=== PATIENT | male | born 1955 | race Caucasian/White ===

== ENCOUNTER → 2016-08-08 | Outpatient (CLI) | payer MEDICARE, MEDICAID ==
[~2016-08-08] MED LIST: /ESOM40CA PO; ACET500C OR; AMLO5TAB2 PO; COLA100C2 PO; DEBR6.5S4 AU; DEPA250C OR; DETR4CAP OR; DIVA500T9 PO; DULC10SU2 PR; DULCOLAX PR; ESOM1CAP5 PO; FLEEENE4 PR; HYDR10TAB PO; IMIP25TA2 PO; INVE9TAB OR; LISI40TAB PO; LUNE3TAB48 PO; METO25TA74 PO; METO25TAB PO; MILKSUS PO; MIRA33504 PO; MIRALEX PO; NIZO2SHA EX; NIZORAL TOP; PAXI30TA OR; ROZE8TAB9 PO; SAPH1SUB12 SL; SENO8.6T10 PO; TRAN1.5D2 TOP; [UNRECOGNIZED DRUG - OTHER] SL
[2016-08-08 14:05] LABS: MEAN CORPUSCULAR HEMOGLOBIN 32.6 pg (27.0-33.0); MEAN CORPUSCULAR HGB CONC 33.5 g/dl (32.0-36.5); MEAN CORPUSCULAR VOLUME 97.4 fl (80.0-96.0); RED CELL DISTRIBUTION WIDTH 12.7 % (11.5-14.5); WHITE BLOOD COUNT 7.1 K/mm3 (4.0-10.0)
[2016-08-08 14:33] LABS: ALBUMIN 3.2 GM/DL (3.2-5.2); ALBUMIN/GLOBULIN RATIO 0.94 (1.00-1.93); ALKALINE PHOSPHATASE 57 U/L (45-117); ALT/SGPT 16 U/L (12-78); ANION GAP 4 MEQ/L (8-16); AST/SGOT 17 U/L (15-37); BILIRUBIN,TOTAL 0.4 MG/DL (0.2-1.0); BLOOD UREA NITROGEN 18 MG/DL (7-18); CALCIUM LEVEL 8.6 MG/DL (8.8-10.2); CARBON DIOXIDE LEVEL 34 MEQ/L (21-32); CHLORIDE LEVEL 97 MEQ/L (98-107); CHOLESTEROL LEVEL 167 MG/DL (<200); CREATININE FOR GFR 0.88 MG/DL (0.70-1.30); GLOMERULAR FILTRATION RATE > 60.0 (>49); GLUCOSE, FASTING 75 MG/DL (80-110); POTASSIUM SERUM 4.9 MEQ/L (3.5-5.1); SODIUM LEVEL 135 MEQ/L (136-145); TOTAL PROTEIN 6.6 GM/DL (6.4-8.2); TRIGLYCERIDES LEVEL 89 MG/DL (<150)
== END ==
LOC: M WUC 08:30
PROVIDERS: ATTEND Physician Assistant
DX: F25.9 Schizoaffective disorder, unspecified (principal); Z79.899 Other long term (current) drug therapy

== ENCOUNTER → 2016-08-29 | Outpatient (CLI) | payer MEDICARE, MEDICAID ==
[~2016-08-29] VITALS: Ht 188 cm; Wt 81.6 kg
[~2016-08-29] MED LIST changes: -IMIP25TA2 PO; +IMIP25TA3 PO; +LIDOCAINE 2% INJ 100 MG/5 ML SDV (FOR ANES.) As Ordered ONE; +LUNE3TAB36 PO; -LUNE3TAB48 PO; +METO1TAB32 PO; -METO25TA74 PO; +PROPOFOL 200 MG/20 ML VIAL As Ordered ONE; +ROZE8TAB16 PO; -ROZE8TAB9 PO
--- NOTE | 2016-08-29 10:24 | ROOR ---
Patient Name: Karri Haywood Procedure Date: 08/29/2016 10:08 AM Date of : 1955 Age: 61 Room: [facility] Gender: Male Note Status: Finalized Procedure: Colonoscopy Indications: Screening for colorectal malignant neoplasm Providers: Jean Hoyos Jr, MD Referring MD: Jean Hoyos Jr, MD Requesting Provider: Medicines: Propofol per Anesthesia Complications: No immediate complications. Procedure: Pre-Anesthesia Assessment: - Prior to the procedure, a History and Physical was performed, and patient medications and allergies were reviewed. The patient is competent. The risks and benefits of the procedure and the sedation options and risks were discussed with the patient. All questions were answered and informed consent was obtained. Patient identification and proposed procedure were verified by the physician and the nurse in the pre-procedure area and in the procedure room. Mental Status Examination: alert and oriented. Airway Examination: normal oropharyngeal airway and neck mobility. Respiratory Examination: clear to auscultation. CV Examination: normal. ASA Grade Assessment: II - A patient with mild systemic disease. After reviewing the risks and benefits, the patient was deemed in satisfactory condition to undergo the procedure. The anesthesia plan was to use moderate sedation / analgesia (conscious sedation). Immediately prior to administration of medications, the patient was re-assessed for adequacy to receive sedatives. The heart rate, respiratory rate, oxygen saturations, blood pressure, adequacy of pulmonary ventilation, and response to care were monitored throughout the procedure. The physical status of the patient was re-assessed after the procedure. The Colonoscope was introduced through the anus and advanced to the cecum, identified by the appendiceal orifice. The colonoscopy was performed without difficulty. The patient tolerated the procedure well. The quality of the bowel preparation was fair. Findings: The perianal and digital rectal examinations were normal. Pertinent negatives include normal sphincter tone, no palpable rectal lesions and no anal lesion or abnormality was detected. The rectum, recto-sigmoid colon, sigmoid colon, descending colon, transverse colon, ascending colon and cecum appeared normal. A diffuse area of moderate melanosis was found in the entire colon. Impression: - Preparation of the colon was fair. - The rectum, recto-sigmoid colon, sigmoid colon, descending colon, transverse colon, ascending colon and cecum are normal. - No specimens collected. Recommendation: - Discharge patient to home (ambulatory). - Repeat colonoscopy in 10 years for screening purposes. Jean Hoyos MD Jean Hoyos Jr, MD 08/29/2016 10:24:21 AM This report has been signed electronically. Number of Addenda: 0 Note Initiated On: 08/29/2016 10:08 AM Estimated Blood Loss: Estimated blood loss: none.
[2016-08-29 10:50] VITALS: BP 160/102
== END | disposition home or self-care (01) ==
LOC: M OPP 08:16
PROVIDERS: ATTEND Surgery
DX: Z12.11 Encounter for screening for malignant neoplasm of colon (principal); K63.89 Other specified diseases of intestine; R12 Heartburn; I10 Essential (primary) hypertension; M41.9 Scoliosis, unspecified; F41.9 Anxiety disorder, unspecified; F32.9 Major depressive disorder, single episode, unspecified; G80.9 Cerebral palsy, unspecified; R32 Unspecified urinary incontinence; F84.9 Pervasive developmental disorder, unspecified; Z87.39 Personal history of other diseases of the musculoskeletal system and connective tissue; Z88.8 Allergy status to other drugs, medicaments and biological substances; Z79.899 Other long term (current) drug therapy

== ENCOUNTER → 2017-03-02 | Outpatient (CLI) | payer MEDICARE, MEDICAID ==
[2017-03-02 18:11] LABS: BASO % 0.5 % (0.0-1.0); EOS % 0.3 % (0.0-3.0); HEMATOCRIT 39.9 % (42.0-52.0); HEMOGLOBIN 13.3 g/dl (14.0-18.0); IMMATURE GRANULOCYTE % 0.3 % (0-0); LYMPH # 1.7 10^3/uL (1.5-4.5); LYMPH % 29.2 % (24.0-44.0); MEAN CORPUSCULAR HEMOGLOBIN 31.6 pg (27.0-33.0); MEAN CORPUSCULAR HGB CONC 33.3 g/dl (32.0-36.5); MEAN CORPUSCULAR VOLUME 94.8 fl (80.0-96.0); MONO # 0.8 10^3/uL (0.0-0.8); NEUTROPHILS # 3.4 10^3/uL (1.8-7.7); NEUTROPHILS % 56.7 % (36.0-66.0); PLATELET COUNT, AUTOMATED 189 10^3/uL (150-450); RED BLOOD COUNT 4.21 10^6/uL (4.30-6.10); RED CELL DISTRIBUTION WIDTH 13.2 % (11.5-14.5); WHITE BLOOD COUNT 5.9 10^3/uL (4.0-10.0)
[2017-03-02 19:23] LABS: ALBUMIN/GLOBULIN RATIO 0.94 (1.00-1.93); ALKALINE PHOSPHATASE 62 U/L (45-117); ALT/SGPT 21 U/L (12-78); ANION GAP 7 MEQ/L (8-16); AST/SGOT 22 U/L (7-37); BILIRUBIN,TOTAL 0.3 MG/DL (0.2-1.0); BLOOD UREA NITROGEN 21 MG/DL (7-18); CALCIUM LEVEL 8.1 MG/DL (8.8-10.2); CARBON DIOXIDE LEVEL 28 MEQ/L (21-32); CHLORIDE LEVEL 101 MEQ/L (98-107); CHOLESTEROL LEVEL 198 MG/DL (<200); CHOLESTEROL RISK RATIO 4.125 (<5); CREATININE FOR GFR 0.99 MG/DL (0.70-1.30); GLOMERULAR FILTRATION RATE > 60.0 (>49); GLUCOSE, FASTING 82 MG/DL (80-110); HDL CHOLESTEROL 48 MG/DL (>40); LDL CHOLESTEROL 120.8 MG/DL (<100); NON-HDL-C 150 MG/DL; POTASSIUM SERUM 4.8 MEQ/L (3.5-5.1); SODIUM LEVEL 136 MEQ/L (136-145); TOTAL PROTEIN 6.2 GM/DL (6.4-8.2); TRIGLYCERIDES LEVEL 146 MG/DL (<150); VALPROIC ACID (DEPAKOTE) 76.3 UG/ML (50.0-100.0)
[2017-03-02 19:25] LABS: ESTIMATED AVERAGE GLUCOSE 111 MG/DL (60-110); HEMOGLOBIN A1c 5.5 %
== END ==
LOC: M WUC 08:37
DX: F63.81 Intermittent explosive disorder (principal); Z79.899 Other long term (current) drug therapy
CPT/HCPCS: 84443

== ENCOUNTER → 2018-03-10 | Outpatient (CLI) | payer MEDICARE, MEDICAID ==
[~2018-03-10] MED LIST changes: -AMLO5TAB2 PO; +AMLO5TAB6 PO; -LIDOCAINE 2% INJ 100 MG/5 ML SDV (FOR ANES.) As Ordered ONE; -PROPOFOL 200 MG/20 ML VIAL As Ordered ONE
[2018-03-10 12:33] LABS: BASO % 0.5 % (0.0-1.0); EOS % 0.4 % (0.0-3.0); HEMATOCRIT 35.5 % (42.0-52.0); HEMOGLOBIN 11.4 g/dl (13.5-17.5); LYMPH # 1.9 10^3/uL (1.5-4.5); LYMPH % 25.3 % (24.0-44.0); MEAN CORPUSCULAR HEMOGLOBIN 31.5 pg (27.0-33.0); MEAN CORPUSCULAR HGB CONC 32.1 g/dl (32.0-36.5); MEAN CORPUSCULAR VOLUME 98.1 fl (80.0-96.0); MONO # 0.9 10^3/uL (0.0-0.8); MONO % 12.3 % (0.0-5.0); NEUTROPHILS # 4.6 10^3/uL (1.8-7.7); NEUTROPHILS % 61.1 % (36.0-66.0); PLATELET COUNT, AUTOMATED 204 10^3/uL (150-450); RED BLOOD COUNT 3.62 10^6/uL (4.30-6.10); WHITE BLOOD COUNT 7.5 10^3/uL (4.0-10.0)
[2018-03-10 12:39] LABS: ALBUMIN 3.1 GM/DL (3.2-5.2); BILIRUBIN,TOTAL 0.4 MG/DL (0.2-1.0); CALCIUM LEVEL 8.3 MG/DL (8.8-10.2); CHOLESTEROL RISK RATIO 4.428 (<5); CREATININE FOR GFR 1.39 MG/DL (0.70-1.30); GLOMERULAR FILTRATION RATE 55.3 (>49); POTASSIUM SERUM 4.9 MEQ/L (3.5-5.1); TOTAL PROTEIN 6.3 GM/DL (6.4-8.2)
[2018-03-10 12:49] LABS: HEMOGLOBIN A1c 5.2 %
== END ==
LOC: M WUC 08:24
PROVIDERS: ATTEND Physician Assistant
DX: F63.81 Intermittent explosive disorder (principal); F70 Mild intellectual disabilities; E87.1 Hypo-osmolality and hyponatremia; I10 Essential (primary) hypertension

== ENCOUNTER → 2018-03-10 | Outpatient (CLI) | payer MEDICARE, MEDICAID ==
[2018-03-10 12:37] LABS: CALCIUM LEVEL 8.5 MG/DL (8.8-10.2); CREATININE FOR GFR 1.43 MG/DL (0.70-1.30); GLOMERULAR FILTRATION RATE 53.5 (>49)
== END ==
LOC: M WUC 08:27
PROVIDERS: ATTEND Internal Medicine
DX: E87.1 Hypo-osmolality and hyponatremia (principal); I10 Essential (primary) hypertension

== ENCOUNTER → 2018-04-10 | Outpatient (CLI) | payer MEDICARE, MEDICAID ==
[2018-04-10 13:47] LABS: CALCIUM LEVEL 8.8 MG/DL (8.8-10.2); CREATININE FOR GFR 1.47 MG/DL (0.70-1.30); GLOMERULAR FILTRATION RATE 51.8 (>49); POTASSIUM SERUM 5.5 MEQ/L (3.5-5.1)
== END ==
LOC: M WUC 08:25
PROVIDERS: ATTEND Internal Medicine
DX: E87.1 Hypo-osmolality and hyponatremia (principal)

== ENCOUNTER → 2018-07-01 | Outpatient (REF) | payer MEDICARE, MEDICAID ==
[~2018-07-01] MED LIST changes: -/ESOM40CA PO; +LISI40TA52 PO; -LISI40TAB PO; +METO1TAB63 PO; -METO25TAB PO; +NEXI1CAP3 PO; +SCOP1PAT2 TOP; -TRAN1.5D2 TOP
[2018-07-01 13:48] LABS: FERRITIN 207 NG/ML (26-388); IRON (FE) 99 UG/DL (65-175); PERCENT SATURATION 33.9 % (19.7-50.0); TOTAL IRON BINDING CAPACITY 292 UG/DL (250-450); TOTAL PROTEIN 6.7 GM/DL (6.4-8.2)
[2018-07-01 13:49] LABS: HEPATITIS B SURFACE ANTIBODY NEGATIVE (POSITIVE); VITAMIN B12 LEVEL 998 PG/ML
[2018-07-01 13:50] LABS: TOTAL PROTEIN,RANDOM URINE 155.3 MG/DL (0.0-12.0)
[2018-07-01 13:59] LABS: HEPATITIS B SURFACE ANTIGEN NEGATIVE (NEGATIVE)
[2018-07-01 14:27] LABS: HEPATITIS C VIRUS ABY INDEX < 0.0 INDEX (<0.8)
[2018-07-01 14:28] LABS: HEPATITIS B CORE ANTIBODY IGM NEGATIVE (NEGATIVE)
[2018-07-01 14:34] LABS: FOLATE 11.4 NG/ML
[2018-07-02 11:31] LABS: ALBUMIN % 55.5 % (55.8-66.1); ALPHA-2-GLOBULINS % 9.6 % (7.1-11.8); BETA-1-GLOBULINS % 7.3 % (4.7-7.2)
[2018-07-02 11:32] LABS: ALBUMIN 3.72 GM/DL (3.29-5.55); ALPHA-1-GLOBULINS 0.27 GM/DL (0.17-0.41); ALPHA-2-GLOBULINS 0.64 GM/DL (0.42-0.99); BETA-1-GLOBULINS 0.49 GM/DL (0.28-0.60); BETA-2-GLOBULINS 0.52 GM/DL (0.19-0.55); BETA-2-GLOBULINS % 7.7 % (3.2-6.5); GAMMA GLOBULIN % 15.9 % (11.1-18.8); GAMMA GLOBULINS 1.07 GM/DL (0.65-1.58)
[2018-07-06 08:08] LABS: ANCA-ATYPICAL <1:20 titer (Neg:<1:20); ANTI DS-DNA AB <1:10 titer (.); ANTINUCLEAR ANTIBODIES DIRECT Negative (Negative); CYTOPLASMIC NEUTROP AB ANCA-C <1:20 titer (Neg:<1:20); PERINUCLEAR AB ANCA-P <1:20 titer (Neg:<1:20)
== END ==
LOC: M LAB REF 13:02
PROVIDERS: ATTEND Internal Medicine Nephrology
DX: D64.9 Anemia, unspecified (principal); R80.9 Proteinuria, unspecified

== ENCOUNTER → 2018-07-02 | Outpatient (REF) | payer MEDICARE, MEDICAID ==
[2018-07-02 18:53] LABS: URINE TOTAL PROTEIN 181.4 MG/DL (0-12)
[2018-07-09 13:25] LABS: UPEP INTERPRETATION NO M-SPIKE NOTED; URINE VOLUME RANDOM ML
== END ==
LOC: M LAB REF 17:33
PROVIDERS: ATTEND Internal Medicine Nephrology
DX: R80.9 Proteinuria, unspecified (principal)

== ENCOUNTER 2018-11-20 20:27 | Emergency (ER) | payer MEDICARE, MEDICAID ==
[~2018-11-20] VITALS: Ht 188 cm; Wt 88.1 kg
--- NOTE | 2018-11-20 21:42 | REPVR ---
PROCEDURE INFORMATION: Exam: CT Head without contrast Exam date and time: 11/20/2018 9:09 PM Clinical history: 63 years old, male; Altered mental status/memory loss; Confusion or disorientation TECHNIQUE: Imaging protocol: Computed tomography of the head without contrast. Radiation optimization: All CT scans at this facility use at least one of these dose optimization techniques: automated exposure control; mA and/or kV adjustment per patient size (includes targeted exams where dose is matched to clinical indication); or iterative reconstruction. COMPARISON: No relevant prior studies available. FINDINGS: Brain: Mild prominence of the cisterna magna. There is slight prominence of the peripheral sulci. Ventricles: There is moderate prominence of the central ventricular system. Bones/joints: Unremarkable. No acute fracture. Sinuses: Visualized sinuses are unremarkable. No fluid levels. Mastoid air cells: Visualized mastoid air cells are well aerated. Soft tissues: Unremarkable. IMPRESSION: 1. Mild atrophy. There is greater prominence of the central ventricular system compared to peripheral sulci and some degree of normal pressure hydrocephalus is not excluded. 2. Otherwise negative noncontrast head CT. Electronically signed by: Loco Alamo On 11/20/2018 21:42:06 PM
[2018-11-20 21:48] LABS: BASO % 0.6 % (0.0-1.0); EOS % 0.4 % (0.0-3.0); HEMATOCRIT 33.4 % (42.0-52.0); HEMOGLOBIN 11.4 g/dl (13.5-17.5); LYMPH # 1.9 10^3/uL (1.5-5.0); LYMPH % 25.8 % (24.0-44.0); MEAN CORPUSCULAR HEMOGLOBIN 33.2 pg (27.0-33.0); MEAN CORPUSCULAR HGB CONC 34.1 g/dl (32.0-36.5); MEAN CORPUSCULAR VOLUME 97.4 fl (80.0-96.0); MONO % 13.7 % (0.0-5.0); NEUTROPHILS # 4.3 10^3/uL (1.5-8.5); NEUTROPHILS % 59.4 % (36.0-66.0); PLATELET COUNT, AUTOMATED 170 10^3/uL (150-450); RED BLOOD COUNT 3.43 10^6/uL (4.30-6.10); WHITE BLOOD COUNT 7.3 10^3/uL (4.0-10.0)
[2018-11-20] MEDS ORDERED: ASEN5TA SL (22:00)
[2018-11-20] MEDS ORDERED: ZALE5CA PO (22:00)
[2018-11-20 22:20] LABS: ALT/SGPT 18 U/L (12-78); BILIRUBIN,DIRECT < 0.1 MG/DL (0.0-0.2); BILIRUBIN,TOTAL 0.2 MG/DL (0.2-1.0); BLOOD UREA NITROGEN 29 MG/DL (7-18); CALCIUM LEVEL 8.2 MG/DL (8.8-10.2); CARBON DIOXIDE LEVEL 29 MEQ/L (21-32); CHLORIDE LEVEL 103 MEQ/L (98-107); CPK CREATINE PHOSPHOKINASE 515 U/L (39-308); CREATININE FOR GFR 1.44 MG/DL (0.70-1.30); GLOMERULAR FILTRATION RATE 52.9 (>49); GLUCOSE, FASTING 114 MG/DL (70-100); MB/CK RELATIVE INDEX 0.58 (< OR =4); POTASSIUM SERUM 4.6 MEQ/L (3.5-5.1); SODIUM LEVEL 137 MEQ/L (136-145); TOTAL PROTEIN 6.3 GM/DL (6.4-8.2); TROPONIN I < 0.02 NG/ML (< 0.10)
[2018-11-20] MEDS ORDERED: ISOVUE-370 76% 100ML VIAL (Q9967) As Ordered ONE (23:18)
--- NOTE | 2018-11-20 23:44 | REPVR ---
PROCEDURE INFORMATION: Exam: CT Angiography Chest With Contrast Exam date and time: 11/20/2018 11:12 PM Clinical history: 63 years old, male; Other: High BP; Additional info: HTN, wide mediastinum on cxr. R/O dissection TECHNIQUE: Imaging protocol: Computed tomographic angiography of the chest with intravenous contrast. 3D rendering: MIP reconstructed images were created and reviewed. Radiation optimization: All CT scans at this facility use at least one of these dose optimization techniques: automated exposure control; mA and/or kV adjustment per patient size (includes targeted exams where dose is matched to clinical indication); or iterative reconstruction. Contrast material: ISO; Contrast volume: 75 ml; Contrast route: AC; COMPARISON: CR PORTABLE CHEST X-RAY 11/20/2018 9:10 PM FINDINGS: Pulmonary arteries: The main pulmonary artery measures 32 mm. Suboptimal opacification of pulmonary arteries. No gross central pulmonary embolism is identified. Emboli beyond first order branching are not excluded. Aorta: The ascending thoracic aorta measures 33 mm. Lungs: Minimal bilateral lower lobe dependent atelectasis and question of minimal infiltrates, particularly in the right lower lobe. Pleural space: Unremarkable. No pneumothorax. No pleural effusion. Heart: Unremarkable. No cardiomegaly. No pericardial effusion. Gallbladder and bile ducts: The gallbladder is contracted with no stones. Lymph nodes: Unremarkable. No enlarged lymph nodes. Bones/joints: Thoracic levoscoliosis. Soft tissues: Unremarkable. IMPRESSION: 1. Suboptimal opacification of the pulmonary arteries. No gross central pulmonary embolism is identified. Emboli beyond first order branching are not excluded. 2. Minimal bilateral lower lobe dependent atelectasis and question of minimal patchy infiltrates, particularly in the right lower lobe. Electronically signed by: Loco Alamo On 11/20/2018 23:43:30 PM
[2018-11-21] VITALS: BP 170/91
--- NOTE | 2018-11-21 09:48 | REP ---
Portable chest, 09:12 p.m., single AP view with the patient sitting: Comparison is 02/28/2011. The patient is rotated. Lung jose are clear. Cardiac size is upper normal. The kobe, mediastinum, skeletal structures are unremarkable for patient positioning. Impression: No acute cardiopulmonary findings. Patient rotated. Electronically Signed by Des Madrid MD 11/21/2018 09:40 A
[2018-11-22] MEDS ORDERED: NORV5TAB PO (00:27)
[2018-11-22] MEDS ORDERED: HYDR10TAB PO (00:27)
--- NOTE | 2018-11-22 08:06 | ECGEPIP ---
[facility] - ED Test Date: 2018-11-20 Pat Name: VINCENZO LEIVA Department: Room: - Gender: Male M[employer]ames As[employer]er: : 1955 Requested By: ELEAZAR Steele Order Number: [id number] Reading MD: Renetta Askew Measurements Intervals [place] Rate: 97 P: 56 NV: 188 QRS: 44 QRSD: 97 T: 41 QT: 337 QTc: 430 Interpretive Statements SINUS RHYTHM MINIMAL VOLTAGE CRITERIA FOR LVH, CONSIDER NORMAL VARIANT No prior Electronically Signed on 11-22-2018 8:06:03 EDT by Renetta Askew
== END 2018-11-21 00:22 | disposition home or self-care (01) ==
LOC: M ED 20:27
DX: I10 Essential (primary) hypertension (principal); G31.9 Degenerative disease of nervous system, unspecified; Z88.8 Allergy status to other drugs, medicaments and biological substances
CPT/HCPCS: 36415; 70450; 71045; 71275; 80048; 80076; 81001; 82140; 82550; 82553; 83605; 84443; 84484; 85025; 93005; 93041; 94760; 99285; Q9967

== ENCOUNTER 2018-11-21 19:50 | Emergency (ER) | payer MEDICARE, MEDICAID ==
[~2018-11-21] VITALS: Ht 182.9 cm; Wt 88.1 kg
[~2018-11-21 19:50] MED LIST changes: +ASEN5TA SL; +ZALE5CA PO
[2018-11-21] MEDS ORDERED: METOPROLOL SUCC *XL* 25MG TAB (TopROL *XL*) PO ONE (20:30)
[2018-11-21] MEDS ORDERED: amLODIPine 5 MG TAB PO ONE ×2 (20:30→22:00)
[2018-11-21 20:54] LABS: HEMATOCRIT 32.4 % (42.0-52.0); HEMOGLOBIN 10.9 g/dl (13.5-17.5); MEAN CORPUSCULAR HEMOGLOBIN 32.7 pg (27.0-33.0); MEAN CORPUSCULAR HGB CONC 33.6 g/dl (32.0-36.5); MEAN CORPUSCULAR VOLUME 97.3 fl (80.0-96.0); PLATELET COUNT, AUTOMATED 194 10^3/uL (150-450); RED BLOOD COUNT 3.33 10^6/uL (4.30-6.10); WHITE BLOOD COUNT 6.9 10^3/uL (4.0-10.0)
[2018-11-21 21:30] LABS: BLOOD UREA NITROGEN 29 MG/DL (7-18); CALCIUM LEVEL 8.1 MG/DL (8.8-10.2); CARBON DIOXIDE LEVEL 29 MEQ/L (21-32); CHLORIDE LEVEL 104 MEQ/L (98-107); CK-MB VALUE MASS 3.1 NG/ML (<3.6); CPK CREATINE PHOSPHOKINASE 408 U/L (39-308); CREATININE FOR GFR 1.32 MG/DL (0.70-1.30); GLOMERULAR FILTRATION RATE 58.5 (>49); GLUCOSE, FASTING 104 MG/DL (70-100); MB/CK RELATIVE INDEX 0.76 (< OR =4); POTASSIUM SERUM 4.9 MEQ/L (3.5-5.1); SODIUM LEVEL 140 MEQ/L (136-145); TROPONIN I < 0.02 NG/ML (< 0.10)
[2018-11-21 22:22] VITALS: BP 160/100
[2018-11-21 22:45] LABS: AMORPHOUS SEDIMENT SMALL (NEGATIVE); APPEARANCE, URINE HAZY (CLEAR); BACTERIA, URINE AUTO NEGATIVE (NEGATIVE); BILIRUBIN, URINE AUTO NEGATIVE (NEGATIVE); BLOOD, URINE BLOOD 3+ (NEGATIVE); COLOR, URINE YELLOW (YELLOW); GLUCOSE, URINE (UA) AUTO NEGATIVE (NEGATIVE); KETONE, URINE AUTO NEGATIVE (NEGATIVE); LEUKOCYTE ESTERASE, URINE AUTO NEGATIVE (NEGATIVE); NITRITE, URINE AUTO NEGATIVE (NEGATIVE); PROTEIN, URINE AUTO 3+ mg/dL (NEGATIVE); RBC, URINE AUTO 69 /HPF (0-3); SPECIFIC GRAVITY URINE AUTO 1.023 (1.002-1.035); SQUAMOUS EPITHELIAL CELL UR AU 0 /HPF (0-6); UROBILINOGEN, URINE AUTO 0.2 mg/dL (0.0-2.0); WBC, URINE AUTO 2 /HPF (0-3)
[2018-11-21] MEDS ORDERED: **hydrALAZINE** 10 MG TAB PO ONE (22:45)
[2018-11-22] MEDS ORDERED: HYDR10TAB PO (00:27)
[2018-11-22] MEDS ORDERED: NORV5TAB PO (00:27)
[2018-11-22 01:00] VITALS: BP 169/112
--- NOTE | 2018-11-22 09:06 | REP ---
Portable chest, 09:12 p.m., single AP view with the patient sitting: Comparison is 11/20/2018. The patient is again rotated. Lung jose are clear. Cardiac size is upper normal, unchanged. The kobe, mediastinum, skeletal structures are unremarkable for patient positioning. Impression: No acute cardiopulmonary findings. No interval change. Electronically Signed by Des Madrid MD 11/22/2018 08:57 A
== END 2018-11-22 01:10 | disposition home or self-care (01) ==
LOC: M ED 19:50
DX: R80.9 Proteinuria, unspecified (principal); I10 Essential (primary) hypertension; F20.9 Schizophrenia, unspecified; K21.9 Gastro-esophageal reflux disease without esophagitis; Z79.899 Other long term (current) drug therapy; Z88.8 Allergy status to other drugs, medicaments and biological substances

== ENCOUNTER → 2019-05-03 | Outpatient (CLI) | payer MEDICARE, MEDICAID ==
[~2019-05-03] MED LIST changes: +NORV5TAB PO
--- NOTE | 2019-05-03 14:51 | REP ---
LIMITED PELVIC, BLADDER SONOGRAPHY: HISTORY: Chronic kidney disease stage III. FINDINGS: Emptying ureteral jets are confirmed bilaterally on interrogation of the bladder lumen with color Doppler. Bladder nelson are smooth. Bladder volume is calculated at 289 mL. The patient was unable to empty. IMPRESSION: No morphologic abnormality is seen. The patient was unable to empty the bladder at the time of scanning. Electronically Signed by Guillermo Du MD 05/03/2019 03:23 P
--- NOTE | 2019-05-03 15:02 | REP ---
RENAL SONOGRAPHY: HISTORY: Chronic kidney disease stage 3. FINDINGS: The left kidney could not be observed due to bowel gas, patient body habitus, and inability to completely cooperate with positioning. Renal cortical echogenicity pattern on the right appears normal. Right kidney measures 10.3 x 4.4 x 5.2 cm. No hydronephrosis is seen on the right. No mass or cyst is observed. IMPRESSION: Limited study. Left kidney could not be observed for technical reasons . No hydronephrosis noted on the right. Electronically Signed by Guillermo Du MD 05/03/2019 03:24 P
== END ==
LOC: M RAD 13:28
PROVIDERS: ATTEND Internal Medicine Nephrology
DX: N18.3 Chronic kidney disease, stage 3 (moderate) (principal); I12.9 Hypertensive chronic kidney disease with stage 1 through stage 4 chronic kidney disease, or unspecified chronic kidney disease; R80.9 Proteinuria, unspecified

== ENCOUNTER → 2019-06-29 | Outpatient (CLI) | payer MEDICARE, MEDICAID ==
[2019-06-29 14:29] LABS: BASO % 0.4 % (0.0-1.0); EOS % 0.1 % (0.0-3.0); HEMATOCRIT 32.6 % (42.0-52.0); HEMOGLOBIN 10.6 g/dl (13.5-17.5); LYMPH # 2.6 10^3/uL (1.5-5.0); LYMPH % 31.5 % (24.0-44.0); MEAN CORPUSCULAR HEMOGLOBIN 31.6 pg (27.0-33.0); MEAN CORPUSCULAR HGB CONC 32.5 g/dl (32.0-36.5); MEAN CORPUSCULAR VOLUME 97.3 fl (80.0-96.0); MONO # 0.8 10^3/uL (0.0-0.8); MONO % 10.2 % (0.0-5.0); NEUTROPHILS # 4.7 10^3/uL (1.5-8.5); NEUTROPHILS % 57.6 % (36.0-66.0); PLATELET COUNT, AUTOMATED 224 10^3/uL (150-450); RED BLOOD COUNT 3.35 10^6/uL (4.30-6.10); WHITE BLOOD COUNT 8.2 10^3/uL (4.0-10.0)
[2019-06-29 15:13] LABS: ALBUMIN 3.2 GM/DL (3.2-5.2); BILIRUBIN,TOTAL 0.3 MG/DL (0.2-1.0); CALCIUM LEVEL 8.8 MG/DL (8.8-10.2); CHOLESTEROL RISK RATIO 4.638 (<5); CREATININE FOR GFR 1.84 MG/DL (0.70-1.30); GLOMERULAR FILTRATION RATE 39.8 (>49); POTASSIUM SERUM 5.1 MEQ/L (3.5-5.1); TOTAL PROTEIN 6.5 GM/DL (6.4-8.2); VALPROIC ACID (DEPAKOTE) 62.8 UG/ML (50.0-100.0)
[2019-06-29 15:40] LABS: HEMOGLOBIN A1c 5.5 %
== END ==
LOC: M WUC 11:17
PROVIDERS: ATTEND Physician Assistant
DX: F63.81 Intermittent explosive disorder (principal); K59.00 Constipation, unspecified; Z79.899 Other long term (current) drug therapy

== ENCOUNTER → 2019-06-29 | Outpatient (CLI) | payer MEDICARE, MEDICAID ==
--- NOTE | 2019-06-29 14:07 | REP ---
REASON: Clinical constipation. COMPARISON: 08/04/2014 FINDINGS: Supine and upright views of the abdomen show the intestinal gas pattern to be nonspecific. Gas and stool is seen throughout the colon within the rectosigmoid region. The organ silhouettes insofar as delineated appear unremarkable. No abdominal calcific densities are seen within the abdomen or pelvis. The accompanying single frontal view of the chest shows no free subdiaphragmatic air, cardiomegaly, infiltrates, or effusions. IMPRESSION: Nonspecific intestinal gas pattern. The frontal view of the chest is unchanged from the prior exam. Stool pattern appears to be within normal limits. Electronically Signed by Jimmy Jacob DO 06/29/2019 02:14 P
== END ==
LOC: M WUC 11:11
PROVIDERS: ATTEND Internal Medicine
DX: K59.00 Constipation, unspecified (principal)

== ENCOUNTER → 2020-05-10 | Outpatient (REF) | payer MEDICARE, MEDICAID ==
[~2020-05-10] MED LIST changes: +AMLO1TAB24 PO; -AMLO5TAB6 PO
[2020-05-10 18:48] LABS: PERCENT SATURATION 31.5 % (19.7-50.0)
== END ==
LOC: M LAB REF 17:08
PROVIDERS: ATTEND Internal Medicine Nephrology
DX: N18.9 Chronic kidney disease, unspecified (principal); D63.1 Anemia in chronic kidney disease

== ENCOUNTER → 2020-06-26 | Outpatient (CLI) | payer MEDICARE, MEDICAID ==
[2020-06-26 16:45] LABS: BASO % 0.6 % (0.0-1.0); EOS % 0.4 % (0.0-3.0); HEMATOCRIT 32.9 % (42.0-52.0); HEMOGLOBIN 10.4 g/dl (13.5-17.5); LYMPH # 2.6 10^3/uL (1.5-5.0); LYMPH % 37.1 % (24.0-44.0); MEAN CORPUSCULAR HGB CONC 31.6 g/dl (32.0-36.5); MEAN CORPUSCULAR VOLUME 98.2 fl (80.0-96.0); MONO # 0.6 10^3/uL (0.0-0.8); NEUTROPHILS # 3.7 10^3/uL (1.5-8.5); NEUTROPHILS % 52.6 % (36.0-66.0); PLATELET COUNT, AUTOMATED 225 10^3/uL (150-450); RED BLOOD COUNT 3.35 10^6/uL (4.30-6.10)
[2020-06-26 17:11] LABS: BILIRUBIN,TOTAL 0.2 MG/DL (0.2-1.0); CALCIUM LEVEL 8.4 MG/DL (8.8-10.2); CHOLESTEROL RISK RATIO 3.979 (<5); CREATININE FOR GFR 1.94 MG/DL (0.70-1.30); GLOMERULAR FILTRATION RATE 37.3 (>49); POTASSIUM SERUM 4.8 MEQ/L (3.5-5.1); TOTAL PROTEIN 6.4 GM/DL (6.4-8.2); VALPROIC ACID (DEPAKOTE) 61.4 UG/ML (50.0-100.0)
[2020-06-26 18:08] LABS: HEMOGLOBIN A1c 5.1 %
== END ==
LOC: M WUC 13:23
PROVIDERS: ATTEND Physician Assistant
DX: Z79.899 Other long term (current) drug therapy (principal)

== ENCOUNTER → 2020-09-29 | Outpatient (REF) | payer MEDICARE, MEDICAID | LOC: M LAB REF 16:42 | PROVIDERS: ATTEND Internal Medicine Nephrology | DX: N18.32 Chronic kidney disease, stage 3b (principal) ==

== ENCOUNTER 2020-12-28 14:11 | Emergency (ER) | payer MEDICARE, MEDICAID ==
[~2020-12-28] VITALS: Ht 177.8 cm; Wt 83.2 kg
[~2020-12-28 14:11] MED LIST changes: -SCOP1PAT2 TOP; +TRAN1DIS4 TOP
[2020-12-28 14:14] VITALS: BP 167/83
--- NOTE | 2020-12-28 16:06 | REP ---
INDICATION: RO DVT. COMPARISON: None TECHNIQUE: Multiple ultrasonographic images of the deep venous structures of the left thigh were obtained from the level of the common femoral vein to the popliteal vein in the longitudinal and transverse scan planes along with Doppler interrogation and color flow Doppler imaging. Proximal calf scanning is also performed with compression technique. FINDINGS: There is no abnormal echogenic material seen within any of the visualized deep venous structures that would suggest acute thrombosis. 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 Coaptation is unremarkable throughout. Doppler interrogation shows an expected response to respiratory variability and augmentation. The color flow Doppler images show what appears to be a normal vascular pattern throughout. The tibial and peroneal veins in the calf could not be seen due to edema. IMPRESSION: There is no ultrasonographic evidence of deep venous thrombosis involving any of the visualized deep venous structures of the left thigh as described above. Proximal calf veins not visible due to edema. Accredited by the [employer] in Vascular Peripheral Ultrasound. <Electronically signed by Avelino Jorge > 12/28/20 [id number]
== END 2020-12-28 17:33 | disposition home or self-care (01) ==
LOC: M ED 14:11
DX: R60.0 Localized edema (principal); I10 Essential (primary) hypertension; M41.9 Scoliosis, unspecified; Z79.899 Other long term (current) drug therapy; Z88.6 Allergy status to analgesic agent; Z88.8 Allergy status to other drugs, medicaments and biological substances

== ENCOUNTER → 2021-04-16 | Outpatient (REF) | payer MEDICARE, MEDICAID ==
[~2021-04-16] MED LIST changes: +ASPE16CR TOP; +CYAN500T14 PO; +DEPA1TAB3 PO; +FLOM0.4C39 PO; +KETO2SHA8 TOP; +MIRA3350 PO; +MM S100C PO; +TORS10TA3 PO
[2021-04-16 16:33] LABS: MAGNESIUM LEVEL 2.3 MG/DL (1.8-2.4); PERCENT SATURATION 38.5 % (19.7-50.0)
== END ==
LOC: M LAB REF 12:54
PROVIDERS: ATTEND Internal Medicine Nephrology
DX: N18.32 Chronic kidney disease, stage 3b (principal); D63.1 Anemia in chronic kidney disease

== ENCOUNTER → 2021-04-25 | Outpatient (CLI) | payer MEDICARE, MEDICAID | LOC: M LABSMTC 10:38 | PROVIDERS: ATTEND Anesthesiology | DX: Z01.812 Encounter for preprocedural laboratory examination (principal); Z20.822 Contact with and (suspected) exposure to COVID-19 ==

== ENCOUNTER 2021-04-30 07:59 | Day surgery (SDC) | payer MEDICARE, MEDICAID ==
[~2021-04-30] VITALS: Ht 190.5 cm; Wt 79.8 kg
[~2021-04-30 07:59] MED LIST changes: +LIDOCAINE 1% SDV 5ML VIAL As Ordered ONE; +LR 1,000 ML IV SCH; +MIDAZOLAM INJ 2MG/2ML VIAL (J2250 PER 1MG) As Ordered ONE
[2021-04-30] MEDS: TETRACAINE 0.5% OPHTH SOLN 4ML OS SCH ×2 (08:38→08:45)
[2021-04-30] MEDS: PHENYLEPHRINE 2.5% OPHTH SOL 2ML OS SCH ×3 (08:38→08:55)
[2021-04-30] MEDS: CYCLOPENTOLATE 1% OPHTH SOLN 2 ML BTL OS SCH ×3 (08:39→08:55)
[2021-04-30] MEDS: FLURBIPROFEN 0.03% OPHTH SOLN 2.5 ML OS SCH ×3 (08:39→08:55)
[2021-04-30] MEDS ORDERED: LIDOCAINE 2% 100MG/5ML SDV (FOR ANES.) As Ordered ONE (09:56)
[2021-04-30] MEDS ORDERED: propofoL 200 MG/20 ML VIAL As Ordered ONE (09:56)
[2021-04-30] MEDS ORDERED: fentaNYL 100 MCG/2 ML INJECTION As Ordered ONE (09:57)
[2021-04-30] MEDS ORDERED: LR 1,000 ML IV SCH (11:05)
[2021-04-30] MEDS ORDERED: ACETAMINOPHEN 325 MG TAB PO PRN (11:10)
[2021-04-30] MEDS ORDERED: TRIMETHOBENZAMIDE 300 MG CAP PO PRN (11:10)
[2021-04-30] MEDS ORDERED: acetaZOLAMIDE 500 MG ER CAP PO ONE (11:10)
[2021-04-30 13:53] VITALS: BP 166/84
== END 2021-04-30 12:12 | disposition home or self-care (01) ==
LOC: M SDC 07:59
PROVIDERS: ATTEND Ophthalmology
DX: H25.12 Age-related nuclear cataract, left eye (principal); F70 Mild intellectual disabilities; I10 Essential (primary) hypertension; K21.9 Gastro-esophageal reflux disease without esophagitis; M41.9 Scoliosis, unspecified; G80.9 Cerebral palsy, unspecified; R33.9 Retention of urine, unspecified; Z79.899 Other long term (current) drug therapy; F41.9 Anxiety disorder, unspecified
CPT/HCPCS: 66984; J2250; J3010; V2632

== ENCOUNTER → 2021-05-23 | Outpatient (CLI) | payer MEDICARE, MEDICAID ==
[~2021-05-23] MED LIST changes: +GOLDPOW2 EX; -LIDOCAINE 1% SDV 5ML VIAL As Ordered ONE; -LR 1,000 ML IV SCH; -MIDAZOLAM INJ 2MG/2ML VIAL (J2250 PER 1MG) As Ordered ONE; +VITA100093 PO; +eczema cream TOP
== END ==
LOC: M LABSMTC 11:23
PROVIDERS: ATTEND Anesthesiology
DX: Z01.818 Encounter for other preprocedural examination (principal); Z20.822 Contact with and (suspected) exposure to COVID-19

== ENCOUNTER → 2021-06-15 | Outpatient (CLI) | payer MEDICARE, MEDICAID ==
[2021-06-15 10:44] LABS: BASO % 0.4 % (0.0-1.0); EOS % 0.7 % (0.0-3.0); HEMATOCRIT 28.3 % (42.0-52.0); LYMPH # 1.7 10^3/uL (1.5-5.0); LYMPH % 31.4 % (24.0-44.0); MEAN CORPUSCULAR HEMOGLOBIN 32.3 pg (27.0-33.0); MEAN CORPUSCULAR HGB CONC 31.8 g/dl (32.0-36.5); MEAN CORPUSCULAR VOLUME 101.4 fl (80.0-96.0); MONO # 0.7 10^3/uL (0.0-0.8); MONO % 12.1 % (2.0-8.0); NEUTROPHILS % 54.8 % (36.0-66.0); PLATELET COUNT, AUTOMATED 205 10^3/uL (150-450); RED BLOOD COUNT 2.79 10^6/uL (4.30-6.10); WHITE BLOOD COUNT 5.4 10^3/uL (4.0-10.0)
== END ==
LOC: M WUC 08:11
PROVIDERS: ATTEND Internal Medicine
DX: D64.9 Anemia, unspecified (principal); N18.9 Chronic kidney disease, unspecified; R26.81 Unsteadiness on feet; Z79.899 Other long term (current) drug therapy

== ENCOUNTER → 2021-06-15 | Outpatient (CLI) | payer MEDICARE, MEDICAID ==
[2021-06-15 10:42] LABS: BASO % 0.7 % (0.0-1.0); EOS % 0.7 % (0.0-3.0); HEMATOCRIT 28.5 % (42.0-52.0); LYMPH # 1.8 10^3/uL (1.5-5.0); LYMPH % 32.7 % (24.0-44.0); MEAN CORPUSCULAR HEMOGLOBIN 32.1 pg (27.0-33.0); MEAN CORPUSCULAR HGB CONC 31.6 g/dl (32.0-36.5); MEAN CORPUSCULAR VOLUME 101.8 fl (80.0-96.0); MONO # 0.6 10^3/uL (0.0-0.8); MONO % 11.4 % (2.0-8.0); NEUTROPHILS # 2.9 10^3/uL (1.5-8.5); NEUTROPHILS % 53.8 % (36.0-66.0); PLATELET COUNT, AUTOMATED 199 10^3/uL (150-450); WHITE BLOOD COUNT 5.4 10^3/uL (4.0-10.0)
[2021-06-15 11:18] LABS: ALBUMIN 2.8 GM/DL (3.2-5.2); BILIRUBIN,TOTAL 0.2 MG/DL (0.2-1.0); CALCIUM LEVEL 8.8 MG/DL (8.8-10.2); CHOLESTEROL RISK RATIO 4.08 (<5); CREATININE FOR GFR 1.82 MG/DL (0.70-1.30); POTASSIUM SERUM 5.4 MEQ/L (3.5-5.1); TOTAL PROTEIN 5.7 GM/DL (6.4-8.2); VALPROIC ACID (DEPAKOTE) 60.2 UG/ML (50.0-100.0)
== END ==
LOC: M WUC 08:14
PROVIDERS: ATTEND Physician Assistant
DX: Z79.899 Other long term (current) drug therapy (principal)

== ENCOUNTER → 2021-06-21 | Outpatient (CLI) | payer MEDICARE, MEDICAID ==
[2021-06-21 19:56] LABS: BASO % 0.2 % (0.0-1.0); EOS % 0.4 % (0.0-3.0); HEMATOCRIT 28.8 % (42.0-52.0); HEMOGLOBIN 9.1 g/dl (13.5-17.5); LYMPH # 1.9 10^3/uL (1.5-5.0); LYMPH % 37.9 % (24.0-44.0); MEAN CORPUSCULAR HEMOGLOBIN 32.5 pg (27.0-33.0); MEAN CORPUSCULAR HGB CONC 31.6 g/dl (32.0-36.5); MEAN CORPUSCULAR VOLUME 102.9 fl (80.0-96.0); MONO # 0.7 10^3/uL (0.0-0.8); MONO % 13.2 % (2.0-8.0); NEUTROPHILS # 2.4 10^3/uL (1.5-8.5); NEUTROPHILS % 48.1 % (36.0-66.0); PLATELET COUNT, AUTOMATED 205 10^3/uL (150-450); WHITE BLOOD COUNT 4.9 10^3/uL (4.0-10.0)
== END ==
LOC: M WUC 15:08
PROVIDERS: ATTEND Internal Medicine
DX: D64.9 Anemia, unspecified (principal)

== ENCOUNTER → 2021-10-08 | Outpatient (CLI) | payer MEDICARE, MEDICAID ==
[~2021-10-08] MED LIST changes: +LIDOCAINE 1% MDV 20ML VIAL As Ordered ONE
[2021-10-08 12:11] VITALS: BP 182/104
[2021-10-08 12:32] LABS: BASO % 0.3 % (0.0-1.0); EOS % 0.5 % (0.0-3.0); HEMATOCRIT 30.5 % (42.0-52.0); HEMOGLOBIN 9.8 g/dl (13.5-17.5); LYMPH # 2.2 10^3/uL (1.5-5.0); LYMPH % 32.9 % (24.0-44.0); MEAN CORPUSCULAR HEMOGLOBIN 32.1 pg (27.0-33.0); MEAN CORPUSCULAR HGB CONC 32.1 g/dl (32.0-36.5); MONO # 0.6 10^3/uL (0.0-0.8); MONO % 9.1 % (2.0-8.0); NEUTROPHILS # 3.8 10^3/uL (1.5-8.5); PLATELET COUNT, AUTOMATED 163 10^3/uL (150-450); RED BLOOD COUNT 3.05 10^6/uL (4.30-6.10); WHITE BLOOD COUNT 6.6 10^3/uL (4.0-10.0)
== END ==
LOC: M IRPRO 11:56
PROVIDERS: ATTEND Internal Medicine Medical Oncology
DX: D64.9 Anemia, unspecified (principal)

== ENCOUNTER → 2021-11-12 | Outpatient (REF) | payer MEDICARE, MEDICAID ==
[~2021-11-12] MED LIST changes: -LIDOCAINE 1% MDV 20ML VIAL As Ordered ONE
[2021-11-12 19:30] LABS: PERCENT SATURATION 22.5 % (19.7-50.0)
== END ==
LOC: M LAB REF 17:01
PROVIDERS: ATTEND Internal Medicine Nephrology
DX: I12.9 Hypertensive chronic kidney disease with stage 1 through stage 4 chronic kidney disease, or unspecified chronic kidney disease (principal); N18.9 Chronic kidney disease, unspecified

== ENCOUNTER → 2022-06-13 | Outpatient (CLI) | payer MEDICARE, MEDICAID ==
[~2022-06-13] MED LIST changes: -ASPE16CR TOP; +LIDO76.52 TOP; +MENT113P2 TP
[2022-06-13 14:13] LABS: CHOLESTEROL RISK RATIO 2.93 (<5); HDL CHOLESTEROL 56.6 MG/DL (>40); LDL CHOLESTEROL 82.4 MG/DL (<100); NON-HDL-C 109.4 MG/DL
== END ==
LOC: M WUC 09:12
PROVIDERS: ATTEND Internal Medicine
DX: D64.9 Anemia, unspecified (principal); N18.9 Chronic kidney disease, unspecified

== ENCOUNTER → 2022-06-13 | Outpatient (CLI) | payer MEDICARE, MEDICAID ==
[2022-06-13 13:43] LABS: BASO % 0.4 % (0.0-1.0); EOS # 0.1 10^3/uL (0.0-0.5); EOS % 1.2 % (0.0-3.0); HEMATOCRIT 30.8 % (42.0-52.0); HEMOGLOBIN 9.4 g/dl (13.5-17.5); LYMPH # 1.2 10^3/uL (1.5-5.0); LYMPH % 23.9 % (24.0-44.0); MEAN CORPUSCULAR HEMOGLOBIN 29.4 pg (27.0-33.0); MEAN CORPUSCULAR HGB CONC 30.5 g/dl (32.0-36.5); MEAN CORPUSCULAR VOLUME 96.3 fl (80.0-96.0); MONO # 0.7 10^3/uL (0.0-0.8); MONO % 14.1 % (2.0-8.0); NEUTROPHILS # 3.1 10^3/uL (1.5-8.5); PLATELET COUNT, AUTOMATED 241 10^3/uL (150-450); WHITE BLOOD COUNT 5.1 10^3/uL (4.0-10.0)
[2022-06-13 13:54] LABS: HEMOGLOBIN A1c 4.9 % (4.0-6.0)
[2022-06-13 14:09] LABS: VALPROIC ACID (DEPAKOTE) 47.6 UG/ML (50.0-100.0)
[2022-06-13 14:12] LABS: ALBUMIN 2.5 G/DL (3.2-5.2); BILIRUBIN,TOTAL 0.3 MG/DL (0.3-1.2); CALCIUM LEVEL 7.7 MG/DL (8.3-10.6); CHOLESTEROL RISK RATIO 2.8 (<5); CREATININE FOR GFR 2.24 MG/DL (0.70-1.30); GLOMERULAR FILTRATION RATE 31.4 (>49); HDL CHOLESTEROL 57.4 MG/DL (>40); LDL CHOLESTEROL 76.6 MG/DL (<100); NON-HDL-C 103.6 MG/DL; POTASSIUM SERUM 4.4 MMOL/L (3.5-5.1); TOTAL PROTEIN 5.5 G/DL (5.7-8.2)
== END ==
LOC: M WUC 09:08
PROVIDERS: ATTEND Physician Assistant
DX: D64.9 Anemia, unspecified (principal); N18.9 Chronic kidney disease, unspecified; Z79.899 Other long term (current) drug therapy

== ENCOUNTER → 2022-06-27 | Outpatient (CLI) | payer MEDICARE, MEDICAID ==
[2022-06-27 13:43] LABS: HEMATOCRIT 32.1 % (42.0-52.0); HEMOGLOBIN 9.8 g/dl (13.5-17.5); MEAN CORPUSCULAR HEMOGLOBIN 29.3 pg (27.0-33.0); MEAN CORPUSCULAR HGB CONC 30.5 g/dl (32.0-36.5); MEAN CORPUSCULAR VOLUME 96.1 fl (80.0-96.0); PLATELET COUNT, AUTOMATED 117 10^3/uL (150-450); RED BLOOD COUNT 3.34 10^6/uL (4.30-6.10); WHITE BLOOD COUNT 4.9 10^3/uL (4.0-10.0)
[2022-06-27 14:12] LABS: ALBUMIN 2.5 G/DL (3.2-5.2); ALKALINE PHOSPHATASE 79 U/L (46-116); ALT/SGPT < 9 U/L (7.0-40); AST/SGOT 33 U/L (<34); BILIRUBIN,TOTAL 0.2 MG/DL (0.3-1.2); BLOOD UREA NITROGEN 36 MG/DL (9-23); CALCIUM LEVEL 7.9 MG/DL (8.3-10.6); CARBON DIOXIDE LEVEL 29 MMOL/L (20-31); CHLORIDE LEVEL 109 MMOL/L (98-107); CREATININE FOR GFR 2.06 MG/DL (0.70-1.30); GLOMERULAR FILTRATION RATE 34.6 (>49); GLUCOSE, FASTING 100 MG/DL (74-106); POTASSIUM SERUM 4.3 MMOL/L (3.5-5.1); SODIUM LEVEL 144 MMOL/L (136-145); TOTAL PROTEIN 5.5 G/DL (5.7-8.2)
== END ==
LOC: M WUC 09:49
PROVIDERS: ATTEND Internal Medicine
DX: D64.9 Anemia, unspecified (principal)

== ENCOUNTER → 2022-07-10 | Outpatient (CLI) | payer MEDICARE, MEDICAID ==
[~2022-07-10] MED LIST changes: +ASPECRE TOP; +BISA10SU4 PR; +CLOT1CRE71 TOP; +DEPA500T2 PO; +EUCECRE12 TOP; +FLEEENE12 PR; +HYDR-3911 PO; +KETO125S TOP; +MOM30SS2 PO; +NYST1POW9 TOP; +SENN-186 PO; +SODI1POW59 PO
== END ==
LOC: M WUC 11:59
PROVIDERS: ATTEND Internal Medicine
DX: I10 Essential (primary) hypertension (principal); R91.8 Other nonspecific abnormal finding of lung field; J90 Pleural effusion, not elsewhere classified

== ENCOUNTER 2022-07-11 14:09 | Inpatient (IN) | payer MEDICARE, MEDICAID ==
[~2022-07-11] VITALS: Ht 185.4 cm; Wt 95.6 kg
[2022-07-11] VITALS (21 sets, daily range): BP systolic 157–221; BP diastolic 82–139; TEMP 97.5; O2SAT 95–98
[~2022-07-11 14:09] MED LIST changes: -ASPECRE TOP; -BISA10SU4 PR; -CLOT1CRE71 TOP; -DEPA500T2 PO; -EUCECRE12 TOP; -FLEEENE12 PR; -HYDR-3911 PO; -KETO125S TOP; -MOM30SS2 PO; -NYST1POW9 TOP; -SENN-186 PO; -SODI1POW59 PO
[2022-07-11] MEDS ORDERED: NITROGLYCERIN 2% OINT 1 GM *U/D* PKT TOP ONE (14:55)
[2022-07-11] MEDS ORDERED: FUROSEMIDE 100MG/10ML VIAL IV ONE ×2 (14:55→21:00)
[2022-07-11 15:35] LABS: BASO % 0.3 % (0.0-1.0); EOS # 0.1 10^3/uL (0.0-0.5); EOS % 0.7 % (0.0-3.0); HEMATOCRIT 32.3 % (42.0-52.0); HEMOGLOBIN 10.3 g/dl (13.5-17.5); LYMPH # 0.6 10^3/uL (1.5-5.0); LYMPH % 7.4 % (24.0-44.0); MEAN CORPUSCULAR HEMOGLOBIN 29.4 pg (27.0-33.0); MEAN CORPUSCULAR HGB CONC 31.9 g/dl (32.0-36.5); MEAN CORPUSCULAR VOLUME 92.3 fl (80.0-96.0); MONO # 0.9 10^3/uL (0.0-0.8); MONO % 10.2 % (2.0-8.0); NEUTROPHILS % 81.2 % (36.0-66.0); PLATELET COUNT, AUTOMATED 174 10^3/uL (150-450); WHITE BLOOD COUNT 8.6 10^3/uL (4.0-10.0)
[2022-07-11 15:52] LABS: INR 0.87
[2022-07-11 15:55] LABS: D-DIMER QUANT 1660.98 ng/ml (<500)
[2022-07-11 15:59] LABS: ALBUMIN 2.7 G/DL (3.2-5.2); BILIRUBIN,DIRECT 0.1 MG/DL (<0.4); BILIRUBIN,TOTAL 0.3 MG/DL (0.3-1.2); CALCIUM LEVEL 8.1 MG/DL (8.3-10.6); CK-MB VALUE MASS 5.9 NG/ML (<3.6); CREATININE FOR GFR 2.69 MG/DL (0.70-1.30); GLOMERULAR FILTRATION RATE 25.4 (>49); MB/CK RELATIVE INDEX 3.75 (< OR =4); TOTAL PROTEIN 5.9 G/DL (5.7-8.2)
[2022-07-11 16:03] LABS: THYROID STIMULATING HORMONE 3.244 uIU/ML (0.55-4.78); THYROXINE (T4) 12.8 UG/DL (4.5-10.9)
[2022-07-11] MEDS ORDERED: LIDOCAINE 2% 5ML JELLY UROJET TOP ONE (17:30)
[2022-07-11] MEDS: NITROGLYCERIN/D5W 100MCG/ML 25 MG in IV 1 EA IV SCH (17:41)
[2022-07-11 17:55] LABS: CK-MB VALUE MASS 5.7 NG/ML (<3.6)
[2022-07-11 17:56] LABS: MB/CK RELATIVE INDEX 3.54 (< OR =4)
[2022-07-11] MEDS ORDERED: ALBUTEROL SULFATE 2.5MG/0.5ML INH NEB SOLN NEB PRN (18:05)
[2022-07-11] MEDS ORDERED: ASPECRE TOP (19:09)
[2022-07-11] MEDS ORDERED: CLOT1CRE71 TOP (19:10)
[2022-07-11] MEDS ORDERED: EUCECRE12 TOP (19:18)
[2022-07-11] MEDS ORDERED: HYDR-3911 PO (19:18)
[2022-07-11] MEDS ORDERED: KETO125S TOP (19:21)
[2022-07-11] MEDS ORDERED: NYST1POW9 TOP (19:27)
[2022-07-11] MEDS ORDERED: SENN-186 PO (19:27)
[2022-07-11] MEDS ORDERED: SODI1POW59 PO (19:33)
[2022-07-11] MEDS ORDERED: ZALE5CA PO (19:36)
[2022-07-11] MEDS ORDERED: BISA10SU4 PR (19:40)
[2022-07-11] MEDS ORDERED: FLEEENE12 PR (19:40)
[2022-07-11] MEDS ORDERED: MOM30SS2 PO (19:41)
[2022-07-11] MEDS ORDERED: HOME MED LIST COMPLETE! XX SCH (19:45)
[2022-07-11] MEDS ORDERED: DEPA500T2 PO (20:20)
[2022-07-11] MEDS ORDERED: METOPROLOL TART 25 MG TABLET PO SCH (21:00)
[2022-07-11] MEDS ORDERED: **hydrALAZINE** 50 MG TAB PO ONE (21:00)
[2022-07-11] MEDS: DIVALPROEX 250MG *ER* TAB PO SCH (21:09)
[2022-07-11] MEDS: HEPARIN SOD (PORCINE) 5000UNITS/ML 1ML VIAL/SYRINGE SC SCH (22:03)
[2022-07-12] VITALS (90 sets, daily range): BP systolic 151–216; BP diastolic 73–116; TEMP 97.9–101.8; O2SAT 88–99
[2022-07-12] MEDS ORDERED: FUROSEMIDE 100MG/10ML VIAL IV SCH
[2022-07-12] MEDS: NITROGLYCERIN/D5W 100MCG/ML 25 MG in IV 1 EA IV SCH ×2 (00:23→19:47)
[2022-07-12 05:04] LABS: HEMATOCRIT 27.7 % (42.0-52.0); HEMOGLOBIN 8.9 g/dl (13.5-17.5); MEAN CORPUSCULAR HEMOGLOBIN 29.3 pg (27.0-33.0); MEAN CORPUSCULAR HGB CONC 32.1 g/dl (32.0-36.5); MEAN CORPUSCULAR VOLUME 91.1 fl (80.0-96.0); PLATELET COUNT, AUTOMATED 142 10^3/uL (150-450); RED BLOOD COUNT 3.04 10^6/uL (4.30-6.10); WHITE BLOOD COUNT 7.2 10^3/uL (4.0-10.0)
[2022-07-12 05:29] LABS: ALBUMIN 2.2 G/DL (3.2-5.2); BILIRUBIN,TOTAL 0.4 MG/DL (0.3-1.2); CALCIUM LEVEL 7.5 MG/DL (8.3-10.6); CREATININE FOR GFR 3.11 MG/DL (0.70-1.30); GLOMERULAR FILTRATION RATE 21.5 (>49); POTASSIUM SERUM 3.9 MMOL/L (3.5-5.1); TOTAL PROTEIN 4.9 G/DL (5.7-8.2)
[2022-07-12] MEDS: HEPARIN SOD (PORCINE) 5000UNITS/ML 1ML VIAL/SYRINGE SC SCH ×3 (05:57→21:06)
[2022-07-12] MEDS: PANTOPRAZOLE 40MG TAB (PROTONIX) PO SCH (08:13)
[2022-07-12] MEDS: FUROSEMIDE 100MG/10ML VIAL IV SCH ×3 (08:13→23:34)
[2022-07-12] MEDS: SENNA 8.6 MG TAB (SENOKOT) PO SCH (08:14)
[2022-07-12] MEDS: DOCUSATE SODIUM 100MG CAPSULE PO SCH (08:14)
[2022-07-12 08:18] LABS: MAGNESIUM LEVEL 2.2 MG/DL (1.8-2.4)
[2022-07-12] MEDS: **hydrALAZINE** 50 MG TAB PO SCH ×3 (10:34→21:07)
[2022-07-12] MEDS: SPIRONOLACTONE 25 MG TAB PO SCH ×2 (10:34→16:06)
[2022-07-12] MEDS: MIRALAX *UNIT DOSE* 17GM PACKET PO SCH (12:26)
[2022-07-12 15:34] LABS: APPEARANCE, URINE HAZY (CLEAR); BACTERIA, URINE AUTO 1+ (NEGATIVE); BILIRUBIN, URINE AUTO NEGATIVE (NEGATIVE); BLOOD, URINE BLOOD 3+ (NEGATIVE); COLOR, URINE YELLOW (YELLOW); GLUCOSE, URINE (UA) AUTO NEGATIVE (NEGATIVE); KETONE, URINE AUTO NEGATIVE (NEGATIVE); LEUKOCYTE ESTERASE, URINE AUTO 2+ (NEGATIVE); MUCUS, URINE SMALL (NEGATIVE); NITRITE, URINE AUTO NEGATIVE (NEGATIVE); PROTEIN, URINE AUTO 3+ mg/dL (NEGATIVE); RBC, URINE AUTO 172 /HPF (0-3); SPECIFIC GRAVITY URINE AUTO 1.009 (1.002-1.035); SQUAMOUS EPITHELIAL CELL UR AU 0 /HPF (0-6); UROBILINOGEN, URINE AUTO 0.2 mg/dL (0.0-2.0); WBC, URINE AUTO 45 /HPF (0-3)
[2022-07-12] MEDS: ACETAMINOPHEN TAB 650MG DOSE (2X325MG) PO PRN (16:54)
[2022-07-12 18:22] LABS: CALCIUM LEVEL 7.7 MG/DL (8.3-10.6); CREATININE FOR GFR 3.59 MG/DL (0.70-1.30); GLOMERULAR FILTRATION RATE 18.2 (>49); POTASSIUM SERUM 3.8 MMOL/L (3.5-5.1)
[2022-07-12] MEDS: DIVALPROEX 250MG *ER* TAB PO SCH (21:06)
[2022-07-13] VITALS (112 sets, daily range): BP systolic 130–274; BP diastolic 63–151; TEMP 97–98.3; O2SAT 88–99
[2022-07-13] MEDS ORDERED: FUROSEMIDE 100MG/10ML VIAL IV SCH
[2022-07-13 04:56] LABS: HEMATOCRIT 27.7 % (42.0-52.0); HEMOGLOBIN 8.8 g/dl (13.5-17.5); MEAN CORPUSCULAR HGB CONC 31.8 g/dl (32.0-36.5); MEAN CORPUSCULAR VOLUME 91.4 fl (80.0-96.0); PLATELET COUNT, AUTOMATED 139 10^3/uL (150-450); RED BLOOD COUNT 3.03 10^6/uL (4.30-6.10); WHITE BLOOD COUNT 6.5 10^3/uL (4.0-10.0)
[2022-07-13 05:25] LABS: ALBUMIN 2.2 G/DL (3.2-5.2); BILIRUBIN,TOTAL 0.3 MG/DL (0.3-1.2); CALCIUM LEVEL 7.3 MG/DL (8.3-10.6); CREATININE FOR GFR 3.64 MG/DL (0.70-1.30); GLOMERULAR FILTRATION RATE 17.9 (>49); MAGNESIUM LEVEL 2.2 MG/DL (1.8-2.4); POTASSIUM SERUM 3.9 MMOL/L (3.5-5.1); TOTAL PROTEIN 4.9 G/DL (5.7-8.2)
[2022-07-13] MEDS: HEPARIN SOD (PORCINE) 5000UNITS/ML 1ML VIAL/SYRINGE SC SCH ×3 (05:50→21:59)
[2022-07-13] MEDS: MIRALAX *UNIT DOSE* 17GM PACKET PO SCH (08:11)
[2022-07-13] MEDS: FUROSEMIDE 100MG/10ML VIAL IV SCH (08:13)
[2022-07-13] MEDS: DOCUSATE SODIUM 100MG CAPSULE PO SCH (08:14)
[2022-07-13] MEDS: PANTOPRAZOLE 40MG TAB (PROTONIX) PO SCH (08:14)
[2022-07-13] MEDS: SPIRONOLACTONE 25 MG TAB PO SCH (08:14)
[2022-07-13] MEDS: SENNA 8.6 MG TAB (SENOKOT) PO SCH (08:16)
[2022-07-13] MEDS: **hydrALAZINE** 50 MG TAB PO SCH (08:16)
[2022-07-13] MEDS: NITROGLYCERIN/D5W 100MCG/ML 25 MG in IV 1 EA IV SCH ×2 (10:34→18:30)
[2022-07-13] MEDS: FUROSEMIDE injection 250 MG in D5W 225 ML IV SCH (11:21)
[2022-07-13] MEDS ORDERED: **hydrALAZINE** 50 MG TAB PO SCH (12:00)
[2022-07-13] MEDS: hydrALAZINE 20MG/ML 1ML VIAL IV SCH ×2 (13:07→18:14)
[2022-07-13] MEDS ORDERED: SPIRONOLACTONE 50 MG TAB PO SCH (17:00)
[2022-07-13] MEDS: SPIRONOLACTONE 50 MG TAB PO SCH (18:14)
[2022-07-13] MEDS: VALPROIC ACID 250MG/5ML SOL ORAL SYRINGE *DRAW UP EXACT DOSE NG SCH (20:49)
[2022-07-13] MEDS ORDERED: VALPROIC ACID 250MG CAP NG SCH (21:00)
[2022-07-14] VITALS (57 sets, daily range): BP systolic 120–202; BP diastolic 60–96; TEMP 97.9–99.4; O2SAT 91–98
[2022-07-14] MEDS: hydrALAZINE 20MG/ML 1ML VIAL IV SCH ×4 (00:04→20:08)
[2022-07-14] MEDS: HEPARIN SOD (PORCINE) 5000UNITS/ML 1ML VIAL/SYRINGE SC SCH ×3 (05:22→22:40)
[2022-07-14 05:44] LABS: HEMATOCRIT 29.3 % (42.0-52.0); HEMOGLOBIN 9.4 g/dl (13.5-17.5); MEAN CORPUSCULAR HEMOGLOBIN 28.9 pg (27.0-33.0); MEAN CORPUSCULAR HGB CONC 32.1 g/dl (32.0-36.5); MEAN CORPUSCULAR VOLUME 90.2 fl (80.0-96.0); PLATELET COUNT, AUTOMATED 147 10^3/uL (150-450); RED BLOOD COUNT 3.25 10^6/uL (4.30-6.10); WHITE BLOOD COUNT 12.7 10^3/uL (4.0-10.0)
[2022-07-14 06:01] LABS: ALBUMIN 2.2 G/DL (3.2-5.2); ALKALINE PHOSPHATASE 85 U/L (46-116); ALT/SGPT 13 U/L (7.0-40); AST/SGOT 22 U/L (<34); BILIRUBIN,TOTAL 0.3 MG/DL (0.3-1.2); BLOOD UREA NITROGEN 49 MG/DL (9-23); CARBON DIOXIDE LEVEL 26 MMOL/L (20-31); CHLORIDE LEVEL 102 MMOL/L (98-107); CREATININE FOR GFR 3.63 MG/DL (0.70-1.30); GLUCOSE, FASTING 103 MG/DL (74-106); MAGNESIUM LEVEL 2.2 MG/DL (1.8-2.4); POTASSIUM SERUM 3.5 MMOL/L (3.5-5.1); SODIUM LEVEL 138 MMOL/L (136-145); TOTAL PROTEIN 5.3 G/DL (5.7-8.2)
[2022-07-14] MEDS: VALPROIC ACID 250MG/5ML SOL ORAL SYRINGE *DRAW UP EXACT DOSE NG SCH ×3 (09:16→20:09)
[2022-07-14] MEDS: MIRALAX *UNIT DOSE* 17GM PACKET PO SCH (09:16)
[2022-07-14] MEDS: SPIRONOLACTONE 50 MG TAB PO SCH ×2 (09:17→16:20)
[2022-07-14] MEDS: SCOPOLAMINE 1MG TRANSDERMAL PATCH TOP SCH (09:17)
[2022-07-14] MEDS: SENNA 8.6 MG TAB (SENOKOT) PO SCH (09:18)
[2022-07-14] MEDS: FUROSEMIDE injection 250 MG in D5W 225 ML IV SCH (10:18)
[2022-07-14] MEDS: **hydrALAZINE** 50 MG TAB PO SCH ×2 (12:44→17:53)
[2022-07-14] MEDS: PANTOPRAZOLE 40MG VIAL IV SCH (12:50)
[2022-07-14 14:24] LABS: CK-MB VALUE MASS < 1.0 NG/ML (<3.6)
[2022-07-14 14:26] LABS: CPK CREATINE PHOSPHOKINASE 57 U/L (46-171); MB/CK RELATIVE INDEX 1.75 (< OR =4)
[2022-07-14] MEDS ORDERED: POTASSIUM CHLORIDE 10% LIQ 20MEQ/15ML UDC NG ONE (15:40)
[2022-07-15] VITALS (13 sets, daily range): BP systolic 130–177; BP diastolic 60–95; TEMP 98.7–100.4; O2SAT 92–95
[2022-07-15] MEDS: **hydrALAZINE** 50 MG TAB PO SCH ×5 (00:13→22:27)
[2022-07-15] MEDS: hydrALAZINE 20MG/ML 1ML VIAL IV SCH ×4 (01:00→19:00)
[2022-07-15 04:12] LABS: HEMATOCRIT 32.2 % (42.0-52.0); HEMOGLOBIN 10.1 g/dl (13.5-17.5); MEAN CORPUSCULAR HEMOGLOBIN 28.3 pg (27.0-33.0); MEAN CORPUSCULAR HGB CONC 31.4 g/dl (32.0-36.5); MEAN CORPUSCULAR VOLUME 90.2 fl (80.0-96.0); PLATELET COUNT, AUTOMATED 163 10^3/uL (150-450); RED BLOOD COUNT 3.57 10^6/uL (4.30-6.10)
[2022-07-15 04:37] LABS: BILIRUBIN,TOTAL 0.2 MG/DL (0.3-1.2); CALCIUM LEVEL 7.9 MG/DL (8.3-10.6); CREATININE FOR GFR 3.91 MG/DL (0.70-1.30); GLOMERULAR FILTRATION RATE 16.5 (>49); MAGNESIUM LEVEL 2.2 MG/DL (1.8-2.4); POTASSIUM SERUM 3.7 MMOL/L (3.5-5.1); TOTAL PROTEIN 5.1 G/DL (5.7-8.2)
[2022-07-15] MEDS: HEPARIN SOD (PORCINE) 5000UNITS/ML 1ML VIAL/SYRINGE SC SCH ×3 (05:39→22:00)
[2022-07-15] MEDS: PANTOPRAZOLE 40MG VIAL IV SCH (09:09)
[2022-07-15] MEDS: SENNA 8.6 MG TAB (SENOKOT) PO SCH (09:09)
[2022-07-15] MEDS: MIRALAX *UNIT DOSE* 17GM PACKET PO SCH (09:12)
[2022-07-15] MEDS: VALPROIC ACID 250MG/5ML SOL ORAL SYRINGE *DRAW UP EXACT DOSE NG SCH ×3 (09:12→20:26)
[2022-07-15] MEDS: SPIRONOLACTONE 50 MG TAB PO SCH ×2 (09:12→17:19)
[2022-07-15] MEDS: POTASSIUM CHLORIDE 10% LIQ 20MEQ/15ML UDC PO SCH ×3 (12:13→20:26)
[2022-07-15] MEDS: FUROSEMIDE injection 250 MG in D5W 225 ML IV SCH (12:13)
[2022-07-15] MEDS: ACETAMINOPHEN TAB 650MG DOSE (2X325MG) PO PRN (15:30)
[2022-07-16] VITALS (13 sets, daily range): BP systolic 138–204; BP diastolic 68–106; TEMP 97.8–100.2; O2SAT 94–98
[2022-07-16] MEDS: hydrALAZINE 20MG/ML 1ML VIAL IV SCH ×4 (01:22→18:41)
[2022-07-16] MEDS: **hydrALAZINE** 50 MG TAB PO SCH ×4 (05:37→23:43)
[2022-07-16] MEDS: HEPARIN SOD (PORCINE) 5000UNITS/ML 1ML VIAL/SYRINGE SC SCH ×3 (05:37→21:14)
[2022-07-16 06:08] LABS: HEMATOCRIT 33.1 % (42.0-52.0); HEMOGLOBIN 10.4 g/dl (13.5-17.5); MEAN CORPUSCULAR HEMOGLOBIN 28.7 pg (27.0-33.0); MEAN CORPUSCULAR HGB CONC 31.4 g/dl (32.0-36.5); MEAN CORPUSCULAR VOLUME 91.2 fl (80.0-96.0); PLATELET COUNT, AUTOMATED 173 10^3/uL (150-450); RED BLOOD COUNT 3.63 10^6/uL (4.30-6.10); WHITE BLOOD COUNT 11.3 10^3/uL (4.0-10.0)
[2022-07-16 06:40] LABS: ALBUMIN 2.1 G/DL (3.2-5.2); BILIRUBIN,TOTAL 0.2 MG/DL (0.3-1.2); CALCIUM LEVEL 8.1 MG/DL (8.3-10.6); CREATININE FOR GFR 4.13 MG/DL (0.70-1.30); GLOMERULAR FILTRATION RATE 15.5 (>49); MAGNESIUM LEVEL 2.5 MG/DL (1.8-2.4); POTASSIUM SERUM 4.1 MMOL/L (3.5-5.1); TOTAL PROTEIN 5.4 G/DL (5.7-8.2)
[2022-07-16] MEDS: SPIRONOLACTONE 50 MG TAB PO SCH (08:42)
[2022-07-16] MEDS: MIRALAX *UNIT DOSE* 17GM PACKET PO SCH (08:42)
[2022-07-16] MEDS: DOXYCYCLINE HYCLATE 100MG TABLET PO SCH ×2 (08:42→21:14)
[2022-07-16] MEDS: PANTOPRAZOLE 40MG VIAL IV SCH (08:42)
[2022-07-16] MEDS: SENNA 8.6 MG TAB (SENOKOT) PO SCH (08:42)
[2022-07-16] MEDS: cefTRIAXone SOD 1 GM in D5W MINI-BAG PLUS 50 ML IV SCH (08:43)
[2022-07-16] MEDS: VALPROIC ACID 250MG/5ML SOL ORAL SYRINGE *DRAW UP EXACT DOSE NG SCH ×3 (08:45→21:14)
[2022-07-16] MEDS ORDERED: hydrALAZINE 20MG/ML 1ML VIAL IV STA (16:27)
[2022-07-16] MEDS: ACETAMINOPHEN TAB 650MG DOSE (2X325MG) PO PRN (23:43)
[2022-07-17] VITALS (8 sets, daily range): BP systolic 133–170; BP diastolic 79–102; TEMP 97.4–98.5; O2SAT 93–96
[2022-07-17] MEDS: hydrALAZINE 20MG/ML 1ML VIAL IV SCH ×4 (00:50→19:00)
[2022-07-17] MEDS: **hydrALAZINE** 50 MG TAB PO SCH ×3 (05:15→17:58)
[2022-07-17 05:35] LABS: HEMATOCRIT 33.3 % (42.0-52.0); HEMOGLOBIN 10.7 g/dl (13.5-17.5); MEAN CORPUSCULAR HEMOGLOBIN 28.9 pg (27.0-33.0); MEAN CORPUSCULAR HGB CONC 32.1 g/dl (32.0-36.5); PLATELET COUNT, AUTOMATED 222 10^3/uL (150-450); WHITE BLOOD COUNT 9.5 10^3/uL (4.0-10.0)
[2022-07-17 05:59] LABS: ALBUMIN 2.2 G/DL (3.2-5.2); BILIRUBIN,TOTAL 0.2 MG/DL (0.3-1.2); CALCIUM LEVEL 7.8 MG/DL (8.3-10.6); CREATININE FOR GFR 4.24 MG/DL (0.70-1.30); MAGNESIUM LEVEL 2.7 MG/DL (1.8-2.4); TOTAL PROTEIN 5.7 G/DL (5.7-8.2)
[2022-07-17] MEDS: HEPARIN SOD (PORCINE) 5000UNITS/ML 1ML VIAL/SYRINGE SC SCH ×3 (06:14→21:40)
[2022-07-17] MEDS ORDERED: TORSEMIDE 100 MG TAB PO SCH (09:00)
[2022-07-17] MEDS: PANTOPRAZOLE 40MG VIAL IV SCH (09:31)
[2022-07-17] MEDS: cefTRIAXone SOD 1 GM in D5W MINI-BAG PLUS 50 ML IV SCH (09:32)
[2022-07-17] MEDS: SCOPOLAMINE 1MG TRANSDERMAL PATCH TOP SCH (09:32)
[2022-07-17] MEDS: DOXYCYCLINE HYCLATE 100MG TABLET PO SCH ×2 (10:43→21:40)
[2022-07-17] MEDS: SENNA 8.6 MG TAB (SENOKOT) PO SCH (10:43)
[2022-07-17] MEDS: MIRALAX *UNIT DOSE* 17GM PACKET PO SCH (10:43)
[2022-07-17] MEDS: VALPROIC ACID 250MG/5ML SOL ORAL SYRINGE *DRAW UP EXACT DOSE NG SCH ×3 (10:44→21:40)
[2022-07-17] MEDS: LR 1,000 ML IV SCH ×2 (10:57→21:40)
[2022-07-17] MEDS ORDERED: E-Z-PAQUE 96% w/w SUSP 176GM BTL As Ordered ONE (11:32)
[2022-07-17] MEDS ORDERED: VARIBAR PUDDING 40% w/v 230ML TUBE As Ordered ONE (11:32)
[2022-07-17] MEDS ORDERED: VARIBAR NECTAR 40% w/v 240ML SUSP BTL As Ordered ONE (11:32)
[2022-07-17] MEDS ORDERED: BARIUM SULFATE 700 MG TABLET (E-Z-DISK) As Ordered ONE (11:33)
[2022-07-18] MEDS: **hydrALAZINE** 50 MG TAB PO SCH ×4 (00:22→17:48)
[2022-07-18] MEDS: hydrALAZINE 20MG/ML 1ML VIAL IV SCH ×4 (01:00→17:46)
[2022-07-18 03:47] VITALS: BP 139/64; TEMP 98.3; O2SAT 94
[2022-07-18 04:24] LABS: HEMATOCRIT 32.6 % (42.0-52.0); MEAN CORPUSCULAR HEMOGLOBIN 28.6 pg (27.0-33.0); MEAN CORPUSCULAR HGB CONC 30.7 g/dl (32.0-36.5); MEAN CORPUSCULAR VOLUME 93.1 fl (80.0-96.0); PLATELET COUNT, AUTOMATED 251 10^3/uL (150-450); WHITE BLOOD COUNT 6.1 10^3/uL (4.0-10.0)
[2022-07-18 04:49] LABS: ALBUMIN 1.9 G/DL (3.2-5.2); ALKALINE PHOSPHATASE 86 U/L (46-116); ALT/SGPT 10 U/L (7.0-40); AST/SGOT 19 U/L (<34); BILIRUBIN,TOTAL < 0.2 MG/DL (0.3-1.2); BLOOD UREA NITROGEN 96 MG/DL (9-23); CALCIUM LEVEL 8.1 MG/DL (8.3-10.6); CARBON DIOXIDE LEVEL 32 MMOL/L (20-31); CHLORIDE LEVEL 100 MMOL/L (98-107); CREATININE FOR GFR 3.94 MG/DL (0.70-1.30); GLOMERULAR FILTRATION RATE 16.4 (>49); GLUCOSE, FASTING 88 MG/DL (74-106); MAGNESIUM LEVEL 2.5 MG/DL (1.8-2.4); POTASSIUM SERUM 4.1 MMOL/L (3.5-5.1); SODIUM LEVEL 138 MMOL/L (136-145); TOTAL PROTEIN 5.1 G/DL (5.7-8.2)
[2022-07-18] MEDS: HEPARIN SOD (PORCINE) 5000UNITS/ML 1ML VIAL/SYRINGE SC SCH (06:10)
[2022-07-18 07:35] VITALS: BP 162/70; TEMP 98.4; O2SAT 97
[2022-07-18] MEDS: cefTRIAXone SOD 1 GM in D5W MINI-BAG PLUS 50 ML IV SCH (08:20)
[2022-07-18] MEDS: PANTOPRAZOLE 40MG VIAL IV SCH (08:21)
[2022-07-18] MEDS: VALPROIC ACID 250MG/5ML SOL ORAL SYRINGE *DRAW UP EXACT DOSE NG SCH ×3 (08:21→20:43)
[2022-07-18] MEDS: SENNA 8.6 MG TAB (SENOKOT) PO SCH (08:22)
[2022-07-18] MEDS: MIRALAX *UNIT DOSE* 17GM PACKET PO SCH (08:43)
[2022-07-18] MEDS: DOXYCYCLINE HYCLATE 100MG TABLET PO SCH (08:43)
[2022-07-18] MEDS ORDERED: LevoFLOXacin 500 MG TABLET PO ONE (11:15)
[2022-07-18] MEDS: LR 1,000 ML IV SCH ×2 (11:20→16:39)
[2022-07-18 11:31] VITALS: BP 147/75; TEMP 97.6; O2SAT 94
[2022-07-18 15:09] LABS: BODY FLUID CULTURE Not indicated. (.); LEGIONELLA ANTIGEN URINE Negative (Negative); ORGANISM ID Not indicated. (.); SPECIMEN SOURCE Urine (.); URINE STREP PNEUMONIAE ANTIGEN Negative (Negative)
[2022-07-18 15:38] VITALS: BP 126/67; TEMP 98.4; O2SAT 90
[2022-07-18 20:37] VITALS: BP 141/75; TEMP 98.3; O2SAT 91
[2022-07-18] MEDS: LevoFLOXacin 750 MG TABLET PO SCH (20:43)
[2022-07-19] VITALS (11 sets, daily range): BP systolic 135–192; BP diastolic 69–90; TEMP 97–100.1; O2SAT 89–97
[2022-07-19] MEDS: hydrALAZINE 20MG/ML 1ML VIAL IV SCH ×2 (00:09→06:48)
[2022-07-19] MEDS: **hydrALAZINE** 50 MG TAB PO SCH ×5 (00:09→23:09)
[2022-07-19] MEDS: ACETAMINOPHEN TAB 650MG DOSE (2X325MG) PO PRN (00:09)
[2022-07-19] MEDS: LR 1,000 ML IV SCH ×2 (04:27→16:26)
[2022-07-19 04:29] LABS: HEMATOCRIT 31.8 % (42.0-52.0); HEMOGLOBIN 9.9 g/dl (13.5-17.5); MEAN CORPUSCULAR HEMOGLOBIN 28.7 pg (27.0-33.0); MEAN CORPUSCULAR HGB CONC 31.1 g/dl (32.0-36.5); MEAN CORPUSCULAR VOLUME 92.2 fl (80.0-96.0); PLATELET COUNT, AUTOMATED 309 10^3/uL (150-450); RED BLOOD COUNT 3.45 10^6/uL (4.30-6.10); WHITE BLOOD COUNT 6.4 10^3/uL (4.0-10.0)
[2022-07-19 05:01] LABS: ALBUMIN 1.9 G/DL (3.2-5.2); ALKALINE PHOSPHATASE 80 U/L (46-116); ALT/SGPT < 9 U/L (7.0-40); AST/SGOT 16 U/L (<34); BILIRUBIN,TOTAL < 0.2 MG/DL (0.3-1.2); BLOOD UREA NITROGEN 100 MG/DL (9-23); CALCIUM LEVEL 7.9 MG/DL (8.3-10.6); CARBON DIOXIDE LEVEL 30 MMOL/L (20-31); CHLORIDE LEVEL 101 MMOL/L (98-107); CREATININE FOR GFR 3.55 MG/DL (0.70-1.30); GLOMERULAR FILTRATION RATE 18.4 (>49); GLUCOSE, FASTING 99 MG/DL (74-106); MAGNESIUM LEVEL 2.6 MG/DL (1.8-2.4); SODIUM LEVEL 138 MMOL/L (136-145); TOTAL PROTEIN 5.1 G/DL (5.7-8.2)
[2022-07-19] MEDS: PANTOPRAZOLE 40MG VIAL IV SCH (08:36)
[2022-07-19] MEDS: MIRALAX *UNIT DOSE* 17GM PACKET PO SCH (08:37)
[2022-07-19] MEDS: VALPROIC ACID 250MG/5ML SOL ORAL SYRINGE *DRAW UP EXACT DOSE NG SCH ×3 (08:37→20:37)
[2022-07-19] MEDS: SENNA 8.6 MG TAB (SENOKOT) PO SCH (08:39)
[2022-07-19] MEDS ORDERED: ROCURONIUM BROMIDE 50MG/5ML VIAL As Ordered ONE (11:45)
[2022-07-19] MEDS ORDERED: ONDANSETRON 4MG 2ML VIAL As Ordered ONE (11:45)
[2022-07-19] MEDS ORDERED: LIDOCAINE 2% 100MG/5ML SDV (FOR ANES.) As Ordered ONE ×2 (11:45→16:52)
[2022-07-19] MEDS ORDERED: propofoL 200 MG/20 ML VIAL As Ordered ONE ×2 (11:45→16:53)
[2022-07-19] MEDS ORDERED: fentaNYL 100 MCG/2 ML INJECTION As Ordered ONE ×2 (11:46→16:51)
[2022-07-19] MEDS ORDERED: ACETAMINOPHEN 1000MG 100ML IV BAG As Ordered ONE (11:49)
[2022-07-19] MEDS ORDERED: MIDAZOLAM INJ 2MG/2ML VIAL As Ordered ONE (16:51)
[2022-07-19] MEDS ORDERED: LR 1,000 ML IV SCH (18:20)
[2022-07-19] MEDS ORDERED: fentaNYL 100 MCG/2 ML INJECTION IV PRN (18:20)
[2022-07-19] MEDS ORDERED: ONDANSETRON 4MG 2ML VIAL IV PRN (18:20)
[2022-07-20] VITALS (9 sets, daily range): BP systolic 131–220; BP diastolic 63–138; TEMP 97.2–98.5; O2SAT 91–98
[2022-07-20] MEDS ORDERED: LABETALOL 100MG/20ML VIAL IV STA (03:58)
[2022-07-20 05:21] LABS: HEMATOCRIT 30.3 % (42.0-52.0); HEMOGLOBIN 9.5 g/dl (13.5-17.5); MEAN CORPUSCULAR HEMOGLOBIN 28.8 pg (27.0-33.0); MEAN CORPUSCULAR HGB CONC 31.4 g/dl (32.0-36.5); MEAN CORPUSCULAR VOLUME 91.8 fl (80.0-96.0); PLATELET COUNT, AUTOMATED 311 10^3/uL (150-450); WHITE BLOOD COUNT 7.6 10^3/uL (4.0-10.0)
[2022-07-20 05:50] LABS: ALBUMIN 1.9 G/DL (3.2-5.2); ALKALINE PHOSPHATASE 78 U/L (46-116); ALT/SGPT < 9 U/L (7.0-40); AST/SGOT 18 U/L (<34); BILIRUBIN,TOTAL 0.2 MG/DL (0.3-1.2); BLOOD UREA NITROGEN 90 MG/DL (9-23); CARBON DIOXIDE LEVEL 30 MMOL/L (20-31); CHLORIDE LEVEL 104 MMOL/L (98-107); CREATININE FOR GFR 3.19 MG/DL (0.70-1.30); GLOMERULAR FILTRATION RATE 20.9 (>49); GLUCOSE, FASTING 97 MG/DL (74-106); SODIUM LEVEL 140 MMOL/L (136-145)
[2022-07-20] MEDS ORDERED: LevoFLOXacin 500 MG TABLET PO SCH (06:00)
[2022-07-20] MEDS: **hydrALAZINE** 50 MG TAB PO SCH ×4 (06:23→23:33)
[2022-07-20] MEDS: VALPROIC ACID 250MG/5ML SOL ORAL SYRINGE *DRAW UP EXACT DOSE NG SCH ×3 (08:45→20:50)
[2022-07-20] MEDS: MIRALAX *UNIT DOSE* 17GM PACKET PO SCH (08:45)
[2022-07-20] MEDS: SCOPOLAMINE 1MG TRANSDERMAL PATCH TOP SCH (08:46)
[2022-07-20] MEDS: PANTOPRAZOLE 40MG VIAL IV SCH (08:46)
[2022-07-20] MEDS: SENNA 8.6 MG TAB (SENOKOT) PO SCH (08:46)
[2022-07-20] MEDS: hydrALAZINE 20MG/ML 1ML VIAL IV PRN (10:13)
[2022-07-20] MEDS: HEPARIN SOD (PORCINE) 5000UNITS/ML 1ML VIAL/SYRINGE SC SCH ×2 (15:00→20:49)
[2022-07-20] MEDS: LevoFLOXacin 750 MG TABLET PO SCH (20:50)
[2022-07-21] VITALS (9 sets, daily range): BP systolic 143–204; BP diastolic 72–100; TEMP 97.8–98.5; O2SAT 94–97
[2022-07-21 05:41] LABS: HEMATOCRIT 30.3 % (42.0-52.0); HEMOGLOBIN 9.3 g/dl (13.5-17.5); MEAN CORPUSCULAR HEMOGLOBIN 28.6 pg (27.0-33.0); MEAN CORPUSCULAR HGB CONC 30.7 g/dl (32.0-36.5); MEAN CORPUSCULAR VOLUME 93.2 fl (80.0-96.0); PLATELET COUNT, AUTOMATED 322 10^3/uL (150-450); RED BLOOD COUNT 3.25 10^6/uL (4.30-6.10); WHITE BLOOD COUNT 6.5 10^3/uL (4.0-10.0)
[2022-07-21 06:12] LABS: ALBUMIN 1.9 G/DL (3.2-5.2); ALKALINE PHOSPHATASE 79 U/L (46-116); ALT/SGPT 9 U/L (7.0-40); AST/SGOT 19 U/L (<34); BILIRUBIN,TOTAL < 0.2 MG/DL (0.3-1.2); BLOOD UREA NITROGEN 85 MG/DL (9-23); CALCIUM LEVEL 7.8 MG/DL (8.3-10.6); CARBON DIOXIDE LEVEL 31 MMOL/L (20-31); CHLORIDE LEVEL 104 MMOL/L (98-107); CREATININE FOR GFR 2.98 MG/DL (0.70-1.30); GLOMERULAR FILTRATION RATE 22.6 (>49); GLUCOSE, FASTING 104 MG/DL (74-106); POTASSIUM SERUM 4.3 MMOL/L (3.5-5.1); SODIUM LEVEL 142 MMOL/L (136-145)
[2022-07-21] MEDS: HEPARIN SOD (PORCINE) 5000UNITS/ML 1ML VIAL/SYRINGE SC SCH ×3 (06:12→20:17)
[2022-07-21] MEDS: **hydrALAZINE** 50 MG TAB PO SCH ×3 (06:13→17:19)
[2022-07-21] MEDS: VALPROIC ACID 250MG/5ML SOL ORAL SYRINGE *DRAW UP EXACT DOSE NG SCH ×3 (08:40→20:17)
[2022-07-21] MEDS: PANTOPRAZOLE 40MG VIAL IV SCH (08:40)
[2022-07-21] MEDS: MIRALAX *UNIT DOSE* 17GM PACKET PO SCH (08:40)
[2022-07-21] MEDS: SENNA 8.6 MG TAB (SENOKOT) PO SCH (08:40)
[2022-07-21] MEDS ORDERED: FUROSEMIDE 40MG/4ML VIAL IV ONE (11:15)
[2022-07-21] MEDS: hydrALAZINE 20MG/ML 1ML VIAL IV PRN ×2 (12:51→19:39)
[2022-07-22] VITALS (8 sets, daily range): BP systolic 108–170; BP diastolic 55–92; TEMP 97.3–98.5; O2SAT 93–96
[2022-07-22] MEDS: **hydrALAZINE** 50 MG TAB PO SCH ×4 (00:02→16:56)
[2022-07-22 05:43] LABS: HEMATOCRIT 33.6 % (42.0-52.0); HEMOGLOBIN 10.2 g/dl (13.5-17.5); MEAN CORPUSCULAR HEMOGLOBIN 28.1 pg (27.0-33.0); MEAN CORPUSCULAR HGB CONC 30.4 g/dl (32.0-36.5); MEAN CORPUSCULAR VOLUME 92.6 fl (80.0-96.0); PLATELET COUNT, AUTOMATED 375 10^3/uL (150-450); RED BLOOD COUNT 3.63 10^6/uL (4.30-6.10); WHITE BLOOD COUNT 6.9 10^3/uL (4.0-10.0)
[2022-07-22 05:57] LABS: ALKALINE PHOSPHATASE 81 U/L (46-116); ALT/SGPT < 9 U/L (7.0-40); AST/SGOT 23 U/L (<34); BILIRUBIN,TOTAL < 0.2 MG/DL (0.3-1.2); BLOOD UREA NITROGEN 80 MG/DL (9-23); CALCIUM LEVEL 8.1 MG/DL (8.3-10.6); CARBON DIOXIDE LEVEL 31 MMOL/L (20-31); CHLORIDE LEVEL 104 MMOL/L (98-107); CREATININE FOR GFR 2.82 MG/DL (0.70-1.30); GLOMERULAR FILTRATION RATE 24.1 (>49); GLUCOSE, FASTING 100 MG/DL (74-106); POTASSIUM SERUM 4.2 MMOL/L (3.5-5.1); SODIUM LEVEL 142 MMOL/L (136-145); TOTAL PROTEIN 5.2 G/DL (5.7-8.2)
[2022-07-22] MEDS: HEPARIN SOD (PORCINE) 5000UNITS/ML 1ML VIAL/SYRINGE SC SCH ×3 (06:29→21:30)
[2022-07-22] MEDS: VALPROIC ACID 250MG/5ML SOL ORAL SYRINGE *DRAW UP EXACT DOSE NG SCH ×3 (08:30→20:07)
[2022-07-22] MEDS: SENNA 8.6 MG TAB (SENOKOT) PO SCH (08:30)
[2022-07-22] MEDS: MIRALAX *UNIT DOSE* 17GM PACKET PO SCH (08:30)
[2022-07-22] MEDS: PANTOPRAZOLE 40MG VIAL IV SCH (08:30)
[2022-07-22] MEDS: hydrALAZINE 20MG/ML 1ML VIAL IV PRN (08:31)
[2022-07-22] MEDS ORDERED: FUROSEMIDE 100MG/10ML VIAL IV ONE (10:50)
[2022-07-23] VITALS (7 sets, daily range): BP systolic 124–168; BP diastolic 55–92; TEMP 97.6–98.9; O2SAT 93–97
[2022-07-23] MEDS: **hydrALAZINE** 50 MG TAB PO SCH ×5 (00:52→23:06)
[2022-07-23] MEDS: HEPARIN SOD (PORCINE) 5000UNITS/ML 1ML VIAL/SYRINGE SC SCH ×3 (05:11→21:01)
[2022-07-23 05:59] LABS: HEMOGLOBIN 9.3 g/dl (13.5-17.5); MEAN CORPUSCULAR HEMOGLOBIN 28.5 pg (27.0-33.0); PLATELET COUNT, AUTOMATED 372 10^3/uL (150-450); RED BLOOD COUNT 3.26 10^6/uL (4.30-6.10); WHITE BLOOD COUNT 6.6 10^3/uL (4.0-10.0)
[2022-07-23 06:23] LABS: ALBUMIN 1.9 G/DL (3.2-5.2); BILIRUBIN,TOTAL 0.2 MG/DL (0.3-1.2); CALCIUM LEVEL 8.5 MG/DL (8.3-10.6); CREATININE FOR GFR 2.69 MG/DL (0.70-1.30); GLOMERULAR FILTRATION RATE 25.4 (>49); POTASSIUM SERUM 3.9 MMOL/L (3.5-5.1); TOTAL PROTEIN 5.2 G/DL (5.7-8.2)
[2022-07-23] MEDS: SENNA 8.6 MG TAB (SENOKOT) PO SCH (08:08)
[2022-07-23] MEDS: MIRALAX *UNIT DOSE* 17GM PACKET PO SCH (08:08)
[2022-07-23] MEDS: PANTOPRAZOLE 40MG VIAL IV SCH (08:08)
[2022-07-23] MEDS: VALPROIC ACID 250MG/5ML SOL ORAL SYRINGE *DRAW UP EXACT DOSE NG SCH ×3 (08:08→19:59)
[2022-07-23] MEDS: hydrALAZINE 20MG/ML 1ML VIAL IV PRN (08:09)
[2022-07-23] MEDS: SCOPOLAMINE 1MG TRANSDERMAL PATCH TOP SCH (08:10)
[2022-07-23] MEDS ORDERED: FUROSEMIDE 100MG/10ML VIAL IV ONE (11:30)
[2022-07-24] VITALS (8 sets, daily range): BP systolic 119–160; BP diastolic 56–90; TEMP 97.9–100.4; O2SAT 95–97
[2022-07-24] MEDS: HEPARIN SOD (PORCINE) 5000UNITS/ML 1ML VIAL/SYRINGE SC SCH ×3 (05:06→21:49)
[2022-07-24] MEDS: **hydrALAZINE** 50 MG TAB PO SCH ×3 (05:07→17:00)
[2022-07-24 06:37] LABS: HEMATOCRIT 29.6 % (42.0-52.0); HEMOGLOBIN 9.3 g/dl (13.5-17.5); MEAN CORPUSCULAR HEMOGLOBIN 28.4 pg (27.0-33.0); MEAN CORPUSCULAR HGB CONC 31.4 g/dl (32.0-36.5); MEAN CORPUSCULAR VOLUME 90.5 fl (80.0-96.0); PLATELET COUNT, AUTOMATED 369 10^3/uL (150-450); RED BLOOD COUNT 3.27 10^6/uL (4.30-6.10); WHITE BLOOD COUNT 7.2 10^3/uL (4.0-10.0)
[2022-07-24 06:49] LABS: ALBUMIN 2.1 G/DL (3.2-5.2); BILIRUBIN,TOTAL 0.2 MG/DL (0.3-1.2); CALCIUM LEVEL 8.4 MG/DL (8.3-10.6); CREATININE FOR GFR 2.84 MG/DL (0.70-1.30); GLOMERULAR FILTRATION RATE 23.9 (>49); TOTAL PROTEIN 5.4 G/DL (5.7-8.2)
[2022-07-24] MEDS: MIRALAX *UNIT DOSE* 17GM PACKET PO SCH (08:27)
[2022-07-24] MEDS: PANTOPRAZOLE 40MG VIAL IV SCH (08:27)
[2022-07-24] MEDS: VALPROIC ACID 250MG/5ML SOL ORAL SYRINGE *DRAW UP EXACT DOSE NG SCH ×3 (08:28→20:07)
[2022-07-24] MEDS: SENNA 8.6 MG TAB (SENOKOT) PO SCH (08:28)
[2022-07-24] MEDS: ACETAMINOPHEN TAB 650MG DOSE (2X325MG) PO PRN (20:08)
[2022-07-25] MEDS: **hydrALAZINE** 50 MG TAB PO SCH ×4 (00:11→17:27)
[2022-07-25 04:00] VITALS: BP 101/58; TEMP 97.9; O2SAT 100
[2022-07-25] MEDS: HEPARIN SOD (PORCINE) 5000UNITS/ML 1ML VIAL/SYRINGE SC SCH ×3 (05:19→21:57)
[2022-07-25 06:54] LABS: HEMATOCRIT 28.8 % (42.0-52.0); MEAN CORPUSCULAR HEMOGLOBIN 28.4 pg (27.0-33.0); MEAN CORPUSCULAR HGB CONC 31.3 g/dl (32.0-36.5); MEAN CORPUSCULAR VOLUME 90.9 fl (80.0-96.0); PLATELET COUNT, AUTOMATED 357 10^3/uL (150-450); RED BLOOD COUNT 3.17 10^6/uL (4.30-6.10); WHITE BLOOD COUNT 7.2 10^3/uL (4.0-10.0)
[2022-07-25 07:18] VITALS: BP 143/74; TEMP 98.2; O2SAT 96
[2022-07-25 07:31] LABS: ALBUMIN 2.1 G/DL (3.2-5.2); BILIRUBIN,TOTAL 0.2 MG/DL (0.3-1.2); CALCIUM LEVEL 8.3 MG/DL (8.3-10.6); CREATININE FOR GFR 2.71 MG/DL (0.70-1.30); GLOMERULAR FILTRATION RATE 25.2 (>49); POTASSIUM SERUM 3.8 MMOL/L (3.5-5.1); TOTAL PROTEIN 5.3 G/DL (5.7-8.2)
[2022-07-25] MEDS ORDERED: FUROSEMIDE 100MG/10ML VIAL IV ONE (07:45)
[2022-07-25] MEDS: VALPROIC ACID 250MG/5ML SOL ORAL SYRINGE *DRAW UP EXACT DOSE NG SCH ×3 (08:23→21:57)
[2022-07-25] MEDS: PANTOPRAZOLE 40MG VIAL IV SCH (08:23)
[2022-07-25] MEDS: MIRALAX *UNIT DOSE* 17GM PACKET PO SCH (08:24)
[2022-07-25] MEDS: SENNA 8.6 MG TAB (SENOKOT) PO SCH (08:24)
[2022-07-25 11:56] VITALS: BP 119/75; TEMP 98.3; O2SAT 95
[2022-07-25 16:15] VITALS: BP 164/98; TEMP 98.3; O2SAT 95
[2022-07-25 20:00] VITALS: BP 174/98; TEMP 97; O2SAT 94
[2022-07-26] VITALS (7 sets, daily range): BP systolic 115–152; BP diastolic 60–81; TEMP 97.6–98.3; O2SAT 93–97
[2022-07-26] MEDS: **hydrALAZINE** 50 MG TAB PO SCH ×4 (00:56→18:00)
[2022-07-26 05:23] LABS: BASO % 0.5 % (0.0-1.0); EOS % 0.6 % (0.0-3.0); HEMATOCRIT 29.8 % (42.0-52.0); HEMOGLOBIN 9.3 g/dl (13.5-17.5); LYMPH # 1.8 10^3/uL (1.5-5.0); LYMPH % 28.9 % (24.0-44.0); MEAN CORPUSCULAR HEMOGLOBIN 28.5 pg (27.0-33.0); MEAN CORPUSCULAR HGB CONC 31.2 g/dl (32.0-36.5); MEAN CORPUSCULAR VOLUME 91.4 fl (80.0-96.0); MONO # 0.7 10^3/uL (0.0-0.8); MONO % 11.6 % (2.0-8.0); NEUTROPHILS # 3.7 10^3/uL (1.5-8.5); NEUTROPHILS % 57.9 % (36.0-66.0); PLATELET COUNT, AUTOMATED 389 10^3/uL (150-450); RED BLOOD COUNT 3.26 10^6/uL (4.30-6.10); WHITE BLOOD COUNT 6.4 10^3/uL (4.0-10.0)
[2022-07-26] MEDS: HEPARIN SOD (PORCINE) 5000UNITS/ML 1ML VIAL/SYRINGE SC SCH ×3 (05:39→21:48)
[2022-07-26 05:52] LABS: ALBUMIN 2.2 G/DL (3.2-5.2); BILIRUBIN,TOTAL 0.2 MG/DL (0.3-1.2); CALCIUM LEVEL 8.7 MG/DL (8.3-10.6); CREATININE FOR GFR 2.54 MG/DL (0.70-1.30); GLOMERULAR FILTRATION RATE 27.1 (>49); MAGNESIUM LEVEL 2.9 MG/DL (1.8-2.4); POTASSIUM SERUM 3.8 MMOL/L (3.5-5.1); TOTAL PROTEIN 5.6 G/DL (5.7-8.2)
[2022-07-26] MEDS: MIRALAX *UNIT DOSE* 17GM PACKET PO SCH (08:06)
[2022-07-26] MEDS: VALPROIC ACID 250MG/5ML SOL ORAL SYRINGE *DRAW UP EXACT DOSE NG SCH ×3 (08:06→21:47)
[2022-07-26] MEDS: SENNA 8.6 MG TAB (SENOKOT) PO SCH (08:07)
[2022-07-26] MEDS: PANTOPRAZOLE 40MG VIAL IV SCH (08:07)
[2022-07-26] MEDS: SCOPOLAMINE 1MG TRANSDERMAL PATCH TOP SCH (08:40)
[2022-07-27] VITALS (7 sets, daily range): BP systolic 100–174; BP diastolic 60–95; TEMP 97.2–98.6; O2SAT 94–97
[2022-07-27] MEDS: **hydrALAZINE** 50 MG TAB PO SCH ×5 (00:55→23:24)
[2022-07-27 05:35] LABS: BASO % 0.7 % (0.0-1.0); EOS % 0.4 % (0.0-3.0); HEMATOCRIT 28.4 % (42.0-52.0); LYMPH # 2.2 10^3/uL (1.5-5.0); LYMPH % 40.2 % (24.0-44.0); MEAN CORPUSCULAR HEMOGLOBIN 28.8 pg (27.0-33.0); MEAN CORPUSCULAR HGB CONC 31.7 g/dl (32.0-36.5); MEAN CORPUSCULAR VOLUME 90.7 fl (80.0-96.0); MONO # 0.7 10^3/uL (0.0-0.8); NEUTROPHILS # 2.5 10^3/uL (1.5-8.5); NEUTROPHILS % 45.3 % (36.0-66.0); PLATELET COUNT, AUTOMATED 373 10^3/uL (150-450); RED BLOOD COUNT 3.13 10^6/uL (4.30-6.10); WHITE BLOOD COUNT 5.4 10^3/uL (4.0-10.0)
[2022-07-27 05:52] LABS: ALBUMIN 2.1 G/DL (3.2-5.2); BILIRUBIN,TOTAL 0.3 MG/DL (0.3-1.2); CALCIUM LEVEL 7.8 MG/DL (8.3-10.6); CREATININE FOR GFR 2.41 MG/DL (0.70-1.30); GLOMERULAR FILTRATION RATE 28.8 (>49); MAGNESIUM LEVEL 2.9 MG/DL (1.8-2.4); TOTAL PROTEIN 5.3 G/DL (5.7-8.2)
[2022-07-27] MEDS: HEPARIN SOD (PORCINE) 5000UNITS/ML 1ML VIAL/SYRINGE SC SCH ×3 (06:22→21:22)
[2022-07-27] MEDS: PANTOPRAZOLE 40MG VIAL IV SCH (08:45)
[2022-07-27] MEDS: SENNA 8.6 MG TAB (SENOKOT) PO SCH (08:45)
[2022-07-27] MEDS: MIRALAX *UNIT DOSE* 17GM PACKET PO SCH (08:45)
[2022-07-27] MEDS: VALPROIC ACID 250MG/5ML SOL ORAL SYRINGE *DRAW UP EXACT DOSE NG SCH ×3 (08:46→21:22)
[2022-07-28 05:27] VITALS: BP 176/93; TEMP 98.6; O2SAT 97
[2022-07-28] MEDS: **hydrALAZINE** 50 MG TAB PO SCH ×4 (05:29→23:39)
[2022-07-28] MEDS: HEPARIN SOD (PORCINE) 5000UNITS/ML 1ML VIAL/SYRINGE SC SCH ×3 (05:29→21:13)
[2022-07-28 06:15] LABS: BASO % 0.5 % (0.0-1.0); EOS % 0.5 % (0.0-3.0); HEMATOCRIT 32.1 % (42.0-52.0); LYMPH # 2.1 10^3/uL (1.5-5.0); LYMPH % 33.9 % (24.0-44.0); MEAN CORPUSCULAR HEMOGLOBIN 28.7 pg (27.0-33.0); MEAN CORPUSCULAR HGB CONC 31.2 g/dl (32.0-36.5); MEAN CORPUSCULAR VOLUME 92.2 fl (80.0-96.0); MONO # 0.7 10^3/uL (0.0-0.8); MONO % 11.9 % (2.0-8.0); NEUTROPHILS # 3.3 10^3/uL (1.5-8.5); PLATELET COUNT, AUTOMATED 393 10^3/uL (150-450); RED BLOOD COUNT 3.48 10^6/uL (4.30-6.10); WHITE BLOOD COUNT 6.2 10^3/uL (4.0-10.0)
[2022-07-28 06:47] LABS: ALBUMIN 2.4 G/DL (3.2-5.2); BILIRUBIN,TOTAL 0.3 MG/DL (0.3-1.2); CALCIUM LEVEL 8.7 MG/DL (8.3-10.6); CREATININE FOR GFR 2.1 MG/DL (0.70-1.30); GLOMERULAR FILTRATION RATE 33.8 (>49); MAGNESIUM LEVEL 2.8 MG/DL (1.8-2.4); POTASSIUM SERUM 4.1 MMOL/L (3.5-5.1); TOTAL PROTEIN 5.7 G/DL (5.7-8.2)
[2022-07-28] MEDS: SENNA 8.6 MG TAB (SENOKOT) PO SCH (08:40)
[2022-07-28] MEDS: PANTOPRAZOLE 40MG VIAL IV SCH (08:40)
[2022-07-28] MEDS: MIRALAX *UNIT DOSE* 17GM PACKET PO SCH (08:40)
[2022-07-28] MEDS: VALPROIC ACID 250MG/5ML SOL ORAL SYRINGE *DRAW UP EXACT DOSE NG SCH ×3 (08:41→21:12)
[2022-07-28] MEDS: amLODIPine 5 MG TAB PO SCH (08:41)
[2022-07-28] MEDS: TORSEMIDE 20 MG TAB PO SCH (11:12)
[2022-07-29 05:00] VITALS: BP 149/102; TEMP 97.9; O2SAT 97
[2022-07-29] MEDS: **hydrALAZINE** 50 MG TAB PO SCH ×4 (05:24→23:13)
[2022-07-29] MEDS: HEPARIN SOD (PORCINE) 5000UNITS/ML 1ML VIAL/SYRINGE SC SCH ×3 (05:24→21:06)
[2022-07-29 06:49] LABS: BASO # 0.1 10^3/uL (0.0-0.2); BASO % 0.9 % (0.0-1.0); EOS # 0.1 10^3/uL (0.0-0.5); EOS % 1.3 % (0.0-3.0); HEMATOCRIT 33.2 % (42.0-52.0); HEMOGLOBIN 10.3 g/dl (13.5-17.5); LYMPH # 2.2 10^3/uL (1.5-5.0); LYMPH % 39.1 % (24.0-44.0); MEAN CORPUSCULAR HEMOGLOBIN 28.6 pg (27.0-33.0); MEAN CORPUSCULAR VOLUME 92.2 fl (80.0-96.0); MONO # 0.6 10^3/uL (0.0-0.8); MONO % 11.6 % (2.0-8.0); NEUTROPHILS # 2.6 10^3/uL (1.5-8.5); NEUTROPHILS % 46.7 % (36.0-66.0); PLATELET COUNT, AUTOMATED 437 10^3/uL (150-450); WHITE BLOOD COUNT 5.5 10^3/uL (4.0-10.0)
[2022-07-29 07:26] LABS: ALBUMIN 2.5 G/DL (3.2-5.2); BILIRUBIN,TOTAL 0.2 MG/DL (0.3-1.2); CALCIUM LEVEL 8.8 MG/DL (8.3-10.6); CREATININE FOR GFR 1.88 MG/DL (0.70-1.30); GLOMERULAR FILTRATION RATE 38.4 (>49); MAGNESIUM LEVEL 2.9 MG/DL (1.8-2.4); POTASSIUM SERUM 4.5 MMOL/L (3.5-5.1); TOTAL PROTEIN 6.1 G/DL (5.7-8.2)
[2022-07-29] MEDS: MIRALAX *UNIT DOSE* 17GM PACKET PO SCH (07:33)
[2022-07-29] MEDS: SENNA 8.6 MG TAB (SENOKOT) PO SCH (07:33)
[2022-07-29] MEDS: VALPROIC ACID 250MG/5ML SOL ORAL SYRINGE *DRAW UP EXACT DOSE NG SCH ×3 (08:03→21:06)
[2022-07-29] MEDS: TORSEMIDE 20 MG TAB PO SCH (08:04)
[2022-07-29] MEDS: PANTOPRAZOLE 40MG VIAL IV SCH (08:04)
[2022-07-29] MEDS: amLODIPine 5 MG TAB PO SCH (08:05)
[2022-07-29] MEDS: SCOPOLAMINE 1MG TRANSDERMAL PATCH TOP SCH (08:06)
[2022-07-30 05:03] VITALS: BP 179/95; TEMP 98.1; O2SAT 96
[2022-07-30] MEDS: HEPARIN SOD (PORCINE) 5000UNITS/ML 1ML VIAL/SYRINGE SC SCH ×3 (05:14→21:46)
[2022-07-30] MEDS: **hydrALAZINE** 50 MG TAB PO SCH ×3 (05:14→18:10)
[2022-07-30 06:10] LABS: BASO % 0.7 % (0.0-1.0); EOS # 0.1 10^3/uL (0.0-0.5); EOS % 0.8 % (0.0-3.0); HEMATOCRIT 31.2 % (42.0-52.0); HEMOGLOBIN 10.1 g/dl (13.5-17.5); LYMPH # 1.9 10^3/uL (1.5-5.0); LYMPH % 32.9 % (24.0-44.0); MEAN CORPUSCULAR HEMOGLOBIN 28.9 pg (27.0-33.0); MEAN CORPUSCULAR HGB CONC 32.4 g/dl (32.0-36.5); MEAN CORPUSCULAR VOLUME 89.4 fl (80.0-96.0); MONO # 0.6 10^3/uL (0.0-0.8); MONO % 10.3 % (2.0-8.0); NEUTROPHILS # 3.3 10^3/uL (1.5-8.5); NEUTROPHILS % 55.1 % (36.0-66.0); PLATELET COUNT, AUTOMATED 396 10^3/uL (150-450); RED BLOOD COUNT 3.49 10^6/uL (4.30-6.10); WHITE BLOOD COUNT 5.9 10^3/uL (4.0-10.0)
[2022-07-30 06:46] LABS: ALBUMIN 2.4 G/DL (3.2-5.2); BILIRUBIN,TOTAL 0.2 MG/DL (0.3-1.2); CALCIUM LEVEL 8.3 MG/DL (8.3-10.6); CREATININE FOR GFR 1.71 MG/DL (0.70-1.30); GLOMERULAR FILTRATION RATE 42.9 (>49); POTASSIUM SERUM 4.2 MMOL/L (3.5-5.1); TOTAL PROTEIN 5.6 G/DL (5.7-8.2)
[2022-07-30] MEDS: VALPROIC ACID 250MG/5ML SOL ORAL SYRINGE *DRAW UP EXACT DOSE NG SCH ×3 (08:55→21:47)
[2022-07-30] MEDS: PANTOPRAZOLE 40MG VIAL IV SCH (08:55)
[2022-07-30] MEDS: SENNA 8.6 MG TAB (SENOKOT) PO SCH (08:56)
[2022-07-30] MEDS: MIRALAX *UNIT DOSE* 17GM PACKET PO SCH (08:56)
[2022-07-30] MEDS: TORSEMIDE 20 MG TAB PO SCH (08:57)
[2022-07-30] MEDS: amLODIPine 5 MG TAB PO SCH (09:00)
[2022-07-31 04:45] VITALS: BP 122/74; TEMP 99.4; O2SAT 97
[2022-07-31] MEDS: HEPARIN SOD (PORCINE) 5000UNITS/ML 1ML VIAL/SYRINGE SC SCH ×3 (05:32→21:08)
[2022-07-31] MEDS: **hydrALAZINE** 50 MG TAB PO SCH ×5 (05:32→23:24)
[2022-07-31 06:30] LABS: BASO % 0.3 % (0.0-1.0); HEMATOCRIT 26.3 % (42.0-52.0); HEMOGLOBIN 8.5 g/dl (13.5-17.5); LYMPH # 2.2 10^3/uL (1.5-5.0); LYMPH % 23.5 % (24.0-44.0); MEAN CORPUSCULAR HEMOGLOBIN 28.7 pg (27.0-33.0); MEAN CORPUSCULAR HGB CONC 32.3 g/dl (32.0-36.5); MEAN CORPUSCULAR VOLUME 88.9 fl (80.0-96.0); MONO # 1.2 10^3/uL (0.0-0.8); MONO % 12.5 % (2.0-8.0); NEUTROPHILS # 5.9 10^3/uL (1.5-8.5); NEUTROPHILS % 63.4 % (36.0-66.0); PLATELET COUNT, AUTOMATED 347 10^3/uL (150-450); RED BLOOD COUNT 2.96 10^6/uL (4.30-6.10); WHITE BLOOD COUNT 9.2 10^3/uL (4.0-10.0)
[2022-07-31 07:01] LABS: ALBUMIN 2.3 G/DL (3.2-5.2); BILIRUBIN,TOTAL 0.3 MG/DL (0.3-1.2); CALCIUM LEVEL 8.1 MG/DL (8.3-10.6); CREATININE FOR GFR 2.19 MG/DL (0.70-1.30); GLOMERULAR FILTRATION RATE 32.2 (>49); MAGNESIUM LEVEL 2.9 MG/DL (1.8-2.4); POTASSIUM SERUM 3.8 MMOL/L (3.5-5.1); TOTAL PROTEIN 5.4 G/DL (5.7-8.2)
[2022-07-31] MEDS: SENNA 8.6 MG TAB (SENOKOT) PO SCH (07:37)
[2022-07-31] MEDS: MIRALAX *UNIT DOSE* 17GM PACKET PO SCH (07:37)
[2022-07-31] MEDS: PANTOPRAZOLE 40MG VIAL IV SCH (08:18)
[2022-07-31] MEDS: VALPROIC ACID 250MG/5ML SOL ORAL SYRINGE *DRAW UP EXACT DOSE NG SCH ×3 (08:18→21:08)
[2022-07-31] MEDS: TORSEMIDE 20 MG TAB PO SCH (08:19)
[2022-07-31] MEDS: amLODIPine 5 MG TAB PO SCH (08:26)
[2022-07-31 22:26] VITALS: BP 121/73; TEMP 98.2; O2SAT 97
[2022-08-01] MEDS: HEPARIN SOD (PORCINE) 5000UNITS/ML 1ML VIAL/SYRINGE SC SCH ×3 (06:16→21:42)
[2022-08-01] MEDS: **hydrALAZINE** 50 MG TAB PO SCH ×3 (06:17→18:32)
[2022-08-01 06:24] VITALS: TEMP 98.8; O2SAT 96
[2022-08-01 07:17] LABS: BASO # 0.1 10^3/uL (0.0-0.2); BASO % 0.8 % (0.0-1.0); EOS % 0.3 % (0.0-3.0); HEMATOCRIT 26.6 % (42.0-52.0); HEMOGLOBIN 8.4 g/dl (13.5-17.5); LYMPH # 2.5 10^3/uL (1.5-5.0); LYMPH % 42.4 % (24.0-44.0); MEAN CORPUSCULAR HEMOGLOBIN 28.7 pg (27.0-33.0); MEAN CORPUSCULAR HGB CONC 31.6 g/dl (32.0-36.5); MEAN CORPUSCULAR VOLUME 90.8 fl (80.0-96.0); MONO # 0.7 10^3/uL (0.0-0.8); MONO % 11.4 % (2.0-8.0); NEUTROPHILS # 2.7 10^3/uL (1.5-8.5); NEUTROPHILS % 44.8 % (36.0-66.0); PLATELET COUNT, AUTOMATED 310 10^3/uL (150-450); RED BLOOD COUNT 2.93 10^6/uL (4.30-6.10)
[2022-08-01 07:42] LABS: ALBUMIN 2.4 G/DL (3.2-5.2); BILIRUBIN,TOTAL 0.3 MG/DL (0.3-1.2); CALCIUM LEVEL 9.4 MG/DL (8.3-10.6); CREATININE FOR GFR 2.45 MG/DL (0.70-1.30); GLOMERULAR FILTRATION RATE 28.3 (>49); MAGNESIUM LEVEL 3.2 MG/DL (1.8-2.4); POTASSIUM SERUM 4.1 MMOL/L (3.5-5.1); TOTAL PROTEIN 5.8 G/DL (5.7-8.2)
[2022-08-01] MEDS: MIRALAX *UNIT DOSE* 17GM PACKET PO SCH (08:41)
[2022-08-01] MEDS: PANTOPRAZOLE 40MG VIAL IV SCH (08:41)
[2022-08-01] MEDS: SCOPOLAMINE 1MG TRANSDERMAL PATCH TOP SCH (08:41)
[2022-08-01] MEDS: amLODIPine 5 MG TAB PO SCH (08:42)
[2022-08-01] MEDS: TORSEMIDE 20 MG TAB PO SCH (08:42)
[2022-08-01] MEDS: VALPROIC ACID 250MG/5ML SOL ORAL SYRINGE *DRAW UP EXACT DOSE NG SCH ×3 (08:43→21:42)
[2022-08-01] MEDS: SENNA 8.6 MG TAB (SENOKOT) PO SCH (08:43)
[2022-08-01] MEDS ORDERED: NS 1,000 ML IV ONE (10:45)
[2022-08-02] MEDS: **hydrALAZINE** 50 MG TAB PO SCH ×4 (00:40→18:00)
[2022-08-02 05:25] VITALS: BP 112/75; TEMP 98.4; O2SAT 98
[2022-08-02 06:00] VITALS: BP 119/70
[2022-08-02] MEDS: HEPARIN SOD (PORCINE) 5000UNITS/ML 1ML VIAL/SYRINGE SC SCH ×3 (06:24→22:15)
[2022-08-02] MEDS: MIRALAX *UNIT DOSE* 17GM PACKET PO SCH (08:28)
[2022-08-02] MEDS: PANTOPRAZOLE 40MG VIAL IV SCH (08:28)
[2022-08-02] MEDS: SENNA 8.6 MG TAB (SENOKOT) PO SCH (08:28)
[2022-08-02] MEDS: amLODIPine 5 MG TAB PO SCH (08:28)
[2022-08-02] MEDS: VALPROIC ACID 250MG/5ML SOL ORAL SYRINGE *DRAW UP EXACT DOSE NG SCH ×3 (08:28→22:14)
[2022-08-02 08:39] LABS: CALCIUM LEVEL 7.8 MG/DL (8.3-10.6); CREATININE FOR GFR 2.18 MG/DL (0.70-1.30); GLOMERULAR FILTRATION RATE 32.4 (>49)
[2022-08-03] MEDS: **hydrALAZINE** 50 MG TAB PO SCH ×5 (00:08→23:33)
[2022-08-03 05:46] VITALS: BP 130/81; TEMP 98.9; O2SAT 95
[2022-08-03] MEDS: HEPARIN SOD (PORCINE) 5000UNITS/ML 1ML VIAL/SYRINGE SC SCH ×3 (05:52→21:03)
[2022-08-03] MEDS: PANTOPRAZOLE 40MG VIAL IV SCH (08:18)
[2022-08-03] MEDS: SENNA 8.6 MG TAB (SENOKOT) PO SCH (08:19)
[2022-08-03] MEDS: MIRALAX *UNIT DOSE* 17GM PACKET PO SCH (08:19)
[2022-08-03] MEDS: VALPROIC ACID 250MG/5ML SOL ORAL SYRINGE *DRAW UP EXACT DOSE NG SCH ×3 (08:19→21:01)
[2022-08-03] MEDS: amLODIPine 5 MG TAB PO SCH (10:12)
[2022-08-04] MEDS: HEPARIN SOD (PORCINE) 5000UNITS/ML 1ML VIAL/SYRINGE SC SCH ×3 (05:06→22:00)
[2022-08-04] MEDS: **hydrALAZINE** 50 MG TAB PO SCH ×3 (05:06→17:16)
[2022-08-04 05:22] VITALS: BP 154/89; TEMP 97.9; O2SAT 95
[2022-08-04] MEDS: amLODIPine 5 MG TAB PO SCH (08:18)
[2022-08-04] MEDS: OMEPRAZOLE/SODIUM BICARB 20-840MG 10ML ORAL SYRINGE GT SCH (08:18)
[2022-08-04] MEDS: VALPROIC ACID 250MG/5ML SOL ORAL SYRINGE *DRAW UP EXACT DOSE NG SCH ×3 (08:19→21:59)
[2022-08-04] MEDS: TORSEMIDE 10 MG TABLET PO SCH (08:19)
[2022-08-04] MEDS: MIRALAX *UNIT DOSE* 17GM PACKET PO SCH (08:19)
[2022-08-04] MEDS: SENNA 8.6 MG TAB (SENOKOT) PO SCH (08:19)
[2022-08-04] MEDS: SCOPOLAMINE 1MG TRANSDERMAL PATCH TOP SCH (08:20)
[2022-08-05] MEDS: **hydrALAZINE** 50 MG TAB PO SCH ×5 (00:25→23:51)
[2022-08-05 05:51] VITALS: BP 130/76; TEMP 97.3; O2SAT 96
[2022-08-05] MEDS: HEPARIN SOD (PORCINE) 5000UNITS/ML 1ML VIAL/SYRINGE SC SCH ×3 (05:56→21:41)
[2022-08-05 06:11] LABS: BASO # 0.1 10^3/uL (0.0-0.2); BASO % 1.4 % (0.0-1.0); EOS % 0.5 % (0.0-3.0); HEMOGLOBIN 8.4 g/dl (13.5-17.5); LYMPH # 2.1 10^3/uL (1.5-5.0); LYMPH % 48.1 % (24.0-44.0); MEAN CORPUSCULAR HEMOGLOBIN 28.5 pg (27.0-33.0); MEAN CORPUSCULAR HGB CONC 31.1 g/dl (32.0-36.5); MEAN CORPUSCULAR VOLUME 91.5 fl (80.0-96.0); MONO # 0.6 10^3/uL (0.0-0.8); MONO % 13.3 % (2.0-8.0); NEUTROPHILS # 1.6 10^3/uL (1.5-8.5); NEUTROPHILS % 36.5 % (36.0-66.0); PLATELET COUNT, AUTOMATED 207 10^3/uL (150-450); RED BLOOD COUNT 2.95 10^6/uL (4.30-6.10); WHITE BLOOD COUNT 4.4 10^3/uL (4.0-10.0)
[2022-08-05 06:37] LABS: CALCIUM LEVEL 8.6 MG/DL (8.3-10.6); CREATININE FOR GFR 2.13 MG/DL (0.70-1.30); GLOMERULAR FILTRATION RATE 33.3 (>49); POTASSIUM SERUM 4.3 MMOL/L (3.5-5.1)
[2022-08-05] MEDS: VALPROIC ACID 250MG/5ML SOL ORAL SYRINGE *DRAW UP EXACT DOSE NG SCH ×3 (09:38→21:40)
[2022-08-05] MEDS: OMEPRAZOLE/SODIUM BICARB 20-840MG 10ML ORAL SYRINGE GT SCH (09:38)
[2022-08-05] MEDS: TORSEMIDE 10 MG TABLET PO SCH (09:39)
[2022-08-05] MEDS: SENNA 8.6 MG TAB (SENOKOT) PO SCH (09:39)
[2022-08-05] MEDS: MIRALAX *UNIT DOSE* 17GM PACKET PO SCH (09:39)
[2022-08-05] MEDS: amLODIPine 5 MG TAB PO SCH (09:39)
[2022-08-06 05:20] VITALS: BP 149/87; TEMP 99; O2SAT 95
[2022-08-06] MEDS: **hydrALAZINE** 50 MG TAB PO SCH ×3 (05:55→18:01)
[2022-08-06] MEDS: HEPARIN SOD (PORCINE) 5000UNITS/ML 1ML VIAL/SYRINGE SC SCH ×3 (05:55→21:49)
[2022-08-06] MEDS: SENNA 8.6 MG TAB (SENOKOT) PO SCH (10:12)
[2022-08-06] MEDS: TORSEMIDE 10 MG TABLET PO SCH (10:13)
[2022-08-06] MEDS: OMEPRAZOLE/SODIUM BICARB 20-840MG 10ML ORAL SYRINGE GT SCH (10:14)
[2022-08-06] MEDS: MIRALAX *UNIT DOSE* 17GM PACKET PO SCH (10:14)
[2022-08-06] MEDS: amLODIPine 5 MG TAB PO SCH (10:14)
[2022-08-06] MEDS: VALPROIC ACID 250MG/5ML SOL ORAL SYRINGE *DRAW UP EXACT DOSE NG SCH ×3 (10:14→21:49)
[2022-08-06] MEDS ORDERED: VARIBAR NECTAR 40% w/v 240ML SUSP BTL As Ordered ONE (15:08)
[2022-08-06] MEDS ORDERED: VARIBAR PUDDING 40% w/v 230ML TUBE As Ordered ONE (15:08)
[2022-08-06] MEDS ORDERED: E-Z-PAQUE 96% w/w SUSP 176GM BTL As Ordered ONE (15:08)
[2022-08-06] MEDS ORDERED: BARIUM SULFATE 700 MG TABLET (E-Z-DISK) As Ordered ONE (15:08)
[2022-08-07] MEDS: **hydrALAZINE** 50 MG TAB PO SCH ×4 (00:09→18:00)
[2022-08-07] MEDS: HEPARIN SOD (PORCINE) 5000UNITS/ML 1ML VIAL/SYRINGE SC SCH ×3 (05:47→21:49)
[2022-08-07 06:00] VITALS: BP 116/80; TEMP 99.7; O2SAT 95
[2022-08-07] MEDS: amLODIPine 5 MG TAB PO SCH (10:33)
[2022-08-07] MEDS: SENNA 8.6 MG TAB (SENOKOT) PO SCH (10:34)
[2022-08-07] MEDS: MIRALAX *UNIT DOSE* 17GM PACKET PO SCH (10:34)
[2022-08-07] MEDS: OMEPRAZOLE/SODIUM BICARB 20-840MG 10ML ORAL SYRINGE GT SCH (10:34)
[2022-08-07] MEDS: SCOPOLAMINE 1MG TRANSDERMAL PATCH TOP SCH (10:34)
[2022-08-07] MEDS: VALPROIC ACID 250MG/5ML SOL ORAL SYRINGE *DRAW UP EXACT DOSE NG SCH ×3 (10:35→21:49)
[2022-08-07 23:58] VITALS: BP 146/86
[2022-08-08] MEDS: **hydrALAZINE** 50 MG TAB PO SCH ×3 (00:02→11:52)
[2022-08-08 06:00] VITALS: BP 136/80; TEMP 99.1; O2SAT 94
[2022-08-08] MEDS: HEPARIN SOD (PORCINE) 5000UNITS/ML 1ML VIAL/SYRINGE SC SCH ×2 (06:15→14:00)
[2022-08-08] MEDS: MIRALAX *UNIT DOSE* 17GM PACKET PO SCH (08:32)
[2022-08-08] MEDS: OMEPRAZOLE/SODIUM BICARB 20-840MG 10ML ORAL SYRINGE GT SCH (08:32)
[2022-08-08] MEDS: VALPROIC ACID 250MG/5ML SOL ORAL SYRINGE *DRAW UP EXACT DOSE NG SCH (08:32)
[2022-08-08] MEDS: SENNA 8.6 MG TAB (SENOKOT) PO SCH (08:32)
[2022-08-08] MEDS: amLODIPine 5 MG TAB PO SCH (08:33)
[2022-08-08] MEDS ORDERED: AMLO1TAB24 GT (11:50)
[2022-08-08] MEDS ORDERED: PREV30TA3 GT (11:50)
[2022-08-08] MEDS ORDERED: CYAN500T14 GT ×2 (11:50→17:38)
[2022-08-08] MEDS ORDERED: DOCU5LIQ GT (11:50)
[2022-08-08] MEDS ORDERED: VALP250S GT (11:50)
[2022-08-08] MEDS ORDERED: SENN-186 GT ×2 (11:50→17:38)
[2022-08-08] MEDS ORDERED: HYDR-3911 GT (11:50)
[2022-08-08] MEDS ORDERED: MIRA3350 GT ×2 (11:50→17:38)
[2022-08-08] MEDS ORDERED: MOM30SS2 GT ×2 (11:50→17:38)
[2022-08-08 11:52] VITALS: BP 135/87
== END 2022-08-08 14:31 | disposition home or self-care (01) | DRG 698 ==
LOC: M ED 14:09 → M ED INP 18:01 → EEVIPCON 18:01 → M ICU 19:14 → M PCU 07-15 01:41 → M MSPAV 07-27 16:00
PROVIDERS: ADMIT Internal Medicine Pulmonary Disease; ATTEND Internal Medicine Nephrology
PROC: B246ZZZ Ultrasonography of Right and Left Heart (ICD-10-PCS; principal; 2022-07-13)
PROC: 0DH63UZ Insertion of Feeding Device into Stomach, Percutaneous Approach (ICD-10-PCS; 2022-07-19)
DX: N04.9 Nephrotic syndrome with unspecified morphologic changes (principal); I50.31 Acute diastolic (congestive) heart failure; J69.0 Pneumonitis due to inhalation of food and vomit; I16.1 Hypertensive emergency; I13.0 Hypertensive heart and chronic kidney disease with heart failure and stage 1 through stage 4 chronic kidney disease, or unspecified chronic kidney disease; R13.10 Dysphagia, unspecified; N17.9 Acute kidney failure, unspecified; N18.32 Chronic kidney disease, stage 3b; G80.9 Cerebral palsy, unspecified; F79 Unspecified intellectual disabilities; I27.20 Pulmonary hypertension, unspecified; F32.A Depression, unspecified; F63.81 Intermittent explosive disorder; K21.9 Gastro-esophageal reflux disease without esophagitis; N40.0 Benign prostatic hyperplasia without lower urinary tract symptoms; D64.9 Anemia, unspecified; B34.8 Other viral infections of unspecified site; D46.9 Myelodysplastic syndrome, unspecified; Z20.822 Contact with and (suspected) exposure to COVID-19; Z79.899 Other long term (current) drug therapy; Z88.6 Allergy status to analgesic agent; Z88.8 Allergy status to other drugs, medicaments and biological substances; Z90.79 Acquired absence of other genital organ(s); E88.09 Other disorders of plasma-protein metabolism, not elsewhere classified; R60.1 Generalized edema

== ENCOUNTER 2023-01-19 08:15 | Emergency (ER) | payer MEDICARE, MEDICAID ==
[~2023-01-19] VITALS: Ht 182.9 cm; Wt 89.5 kg
[~2023-01-19 08:15] MED LIST changes: +AMLO1TAB24 GT; +ASEN10TA; +ASPECRE TOP; +B-12100010 PO; +BISA10SU4 PR; +CEPH250REC; +CLOT1CRE71 TOP; +CYAN500T14 GT; +DEPA500T2 PO; +DOCU5LIQ GT; +EUCECRE12 TOP; +FAMO40SU9; +FLEEENE12 PR; +FURO10EL; +HYDR-3911 GT; +HYDR-3911 PO; +KETO125S TOP; -LUNE3TAB36 PO; +LUNE3TAB50 PO; +MIRA3350 GT; +MOM30SS2 GT; +MOM30SS2 PO; +NYST1POW9 TOP; +PREV30TA3 GT; +SENN-186 GT; +SENN-186 PO; +SODI1POW59 PO; +VALP250S GT
[2023-01-19 09:12] LABS: BASO % 0.1 % (0.0-1.0); EOS % 0.1 % (0.0-3.0); HEMATOCRIT 25.7 % (42.0-52.0); HEMOGLOBIN 8.1 g/dl (13.5-17.5); LYMPH % 28.7 % (24.0-44.0); MEAN CORPUSCULAR HEMOGLOBIN 32.5 pg (27.0-33.0); MEAN CORPUSCULAR HGB CONC 31.5 g/dl (32.0-36.5); MEAN CORPUSCULAR VOLUME 103.2 fl (80.0-96.0); MONO # 1.1 10^3/uL (0.0-0.8); MONO % 16.3 % (2.0-8.0); NEUTROPHILS # 3.8 10^3/uL (1.5-8.5); NEUTROPHILS % 54.2 % (36.0-66.0); PLATELET COUNT, AUTOMATED 294 10^3/uL (150-450); RED BLOOD COUNT 2.49 10^6/uL (4.30-6.10)
[2023-01-19 09:29] LABS: INR 0.98; PROTHROMBIN TIME 12.7 SECONDS (12.5-14.5)
[2023-01-19 09:30] LABS: PARTIAL THROMBOPLASTIN TIME 24.9 SECONDS (24.8-34.2)
[2023-01-19 09:38] LABS: CK-MB VALUE MASS < 1.0 NG/ML (<3.6); LIPASE 40 U/L (12-53)
[2023-01-19 09:40] LABS: ALBUMIN 2.5 G/DL (3.2-5.2); ALKALINE PHOSPHATASE 65 U/L (46-116); ALT/SGPT 15 U/L (7.0-40); AST/SGOT 31 U/L (<34); BILIRUBIN,DIRECT < 0.1 MG/DL (<0.4); BILIRUBIN,TOTAL 0.2 MG/DL (0.3-1.2); BLOOD UREA NITROGEN 71 MG/DL (9-23); CALCIUM LEVEL 7.8 MG/DL (8.3-10.6); CARBON DIOXIDE LEVEL 29 MMOL/L (20-31); CHLORIDE LEVEL 107 MMOL/L (98-107); CREATININE FOR GFR 2.77 MG/DL (0.70-1.30); GLOMERULAR FILTRATION RATE 24.6 (>49); GLUCOSE, FASTING 86 MG/DL (74-106); POTASSIUM SERUM 4.3 MMOL/L (3.5-5.1); SODIUM LEVEL 145 MMOL/L (136-145); TOTAL PROTEIN 5.7 G/DL (5.7-8.2)
[2023-01-19 09:47] LABS: PROCALCITONIN 0.13 ng/ml
[2023-01-19 09:49] LABS: CPK CREATINE PHOSPHOKINASE 80 U/L (46-171); MB/CK RELATIVE INDEX 1.25 (< OR =4)
[2023-01-19 10:22] LABS: CPK CREATINE PHOSPHOKINASE 63 U/L (46-171)
[2023-01-19 10:23] LABS: CK-MB VALUE MASS < 1.0 NG/ML (<3.6); MB/CK RELATIVE INDEX 1.58 (< OR =4)
[2023-01-19] MEDS ORDERED: **hydrALAZINE** 50 MG TAB PEG ONE (13:15)
[2023-01-19 13:20] VITALS: BP 170/98
[2023-01-19 14:08] VITALS: BP 158/88; TEMP 96.8; O2SAT 96
== END 2023-01-19 13:48 | disposition home or self-care (01) ==
LOC: EDBD 08:15 → M ED 08:15
DX: R53.1 Weakness (principal); I10 Essential (primary) hypertension; F32.A Depression, unspecified; K21.9 Gastro-esophageal reflux disease without esophagitis; N18.9 Chronic kidney disease, unspecified; Z88.6 Allergy status to analgesic agent; Z79.52 Long term (current) use of systemic steroids; Z79.899 Other long term (current) drug therapy

== ENCOUNTER 2023-05-12 05:27 | Inpatient (IN) | payer MEDICARE, MEDICAID ==
[~2023-05-12] VITALS: Ht 182.9 cm; Wt 90.2 kg
[~2023-05-12 05:27] MED LIST changes: +B-12100010 GT; -B-12100010 PO; -FAMO40SU9; +FAMO40SU9 GT; -FURO10EL; +FURO10EL GT; +HYDR-161 PO; -HYDR-3911 GT; -HYDR-3911 PO; -HYDR10TAB PO; +HYDR50TA46 GT; +HYDR50TA46 PO
[2023-05-12 06:19] LABS: BASO % 0.3 % (0.0-1.0); EOS % 0.1 % (0.0-3.0); LYMPH # 0.9 10^3/uL (1.5-5.0); LYMPH % 13.5 % (24.0-44.0); MEAN CORPUSCULAR HEMOGLOBIN 30.6 pg (27.0-33.0); MEAN CORPUSCULAR VOLUME 98.6 fl (80.0-96.0); MONO % 14.8 % (2.0-8.0); NEUTROPHILS # 4.9 10^3/uL (1.5-8.5); NEUTROPHILS % 70.9 % (36.0-66.0); PLATELET COUNT, AUTOMATED 118 10^3/uL (150-450); RED BLOOD COUNT 2.19 10^6/uL (4.30-6.10)
[2023-05-12 06:23] LABS: HEMATOCRIT 21.6 % (42.0-52.0); HEMOGLOBIN 6.7 g/dl (13.5-17.5)
[2023-05-12 06:48] LABS: ALBUMIN 2.5 G/DL (3.2-5.2); BILIRUBIN,DIRECT 0.1 MG/DL (<0.4); BILIRUBIN,TOTAL 0.2 MG/DL (0.3-1.2); CALCIUM LEVEL 8.4 MG/DL (8.3-10.6); CREATININE FOR GFR 3.46 MG/DL (0.70-1.30); POTASSIUM SERUM 4.2 MMOL/L (3.5-5.1); TOTAL PROTEIN 5.7 G/DL (5.7-8.2)
[2023-05-12 08:40] LABS: CK-MB VALUE MASS 14.2 NG/ML (<3.6)
[2023-05-12 08:45] LABS: MB/CK RELATIVE INDEX 3.27 (< OR =4)
[2023-05-12] MEDS: LABETALOL 100MG/20ML VIAL IV STA ×2 (08:47→09:12)
[2023-05-12] MEDS: DEXTROSE 50% 50ML SYRINGE IV STA (09:11)
[2023-05-12] MEDS: cefTRIAXone SOD 1 GM in D5W MINI-BAG PLUS 50 ML IV ONE (09:12)
[2023-05-12 09:44] LABS: MB/CK RELATIVE INDEX 3.21 (< OR =4)
[2023-05-12] MEDS: AZITHROMYCIN INJ 500 MG, VIAL MATE ADAPTER 1 EACH in D5W 250 ML IV ONE (09:53)
[2023-05-12] MEDS: NS 1,000 ML IV SCH (09:54)
[2023-05-12] MEDS: IPRATROPIUM 0.5MG/ALBUTEROL 2.5MG INH SOL UD 3ML (DUONEB) NEB ONE (10:54)
[2023-05-12] MEDS ORDERED: SM CPOW GT (10:59)
[2023-05-12] MEDS ORDERED: SENN8.8S11 GT (10:59)
[2023-05-12] MEDS ORDERED: DESI13CR2 TOP (10:59)
[2023-05-12] MEDS ORDERED: TRIPOIN9 TOP (10:59)
[2023-05-12] MEDS ORDERED: GUAI100L6 GT (10:59)
[2023-05-12] MEDS ORDERED: ACET1TAB55 GT (10:59)
[2023-05-12] MEDS ORDERED: FUROSEMIDE 40MG/4ML VIAL IV ONE (11:00)
[2023-05-12] MEDS ORDERED: HOME MED LIST COMPLETE! XX SCH (11:05)
[2023-05-12 11:09] LABS: ABG BASE EXCESS -3.5 (-2.0-2.0); ABG HCO3 21.1 MMOL/L (22.0-26.0); ABG O2 SATURATION 94.1 % (95.0-99.0); ABG PARTIAL PRESSURE CO2 36.1 mmHg (35.0-45.0); ABG PARTIAL PRESSURE O2 84.1 mmHg (75.0-100.0); ABG STANDARD HCO3 21.4 MMOL/L. (22.0-26.0); ABG TOTAL CO2 22.2 MMOL/L (23.0-31.0); ABG pH (ARTERIAL) 7.385 UNITS (7.350-7.450)
[2023-05-12] MEDS: ALBUTEROL SULFATE 2.5MG/0.5ML INH NEB SOLN NEB ONE (11:16)
[2023-05-12 12:06] LABS: PROCALCITONIN 0.19 ng/ml
[2023-05-12 12:11] LABS: HEMATOCRIT 24.1 % (42.0-52.0); HEMOGLOBIN 7.4 g/dl (13.5-17.5); MEAN CORPUSCULAR HEMOGLOBIN 30.6 pg (27.0-33.0); MEAN CORPUSCULAR HGB CONC 30.7 g/dl (32.0-36.5); MEAN CORPUSCULAR VOLUME 99.6 fl (80.0-96.0); PLATELET COUNT, AUTOMATED 116 10^3/uL (150-450); RED BLOOD COUNT 2.42 10^6/uL (4.30-6.10); WHITE BLOOD COUNT 11.2 10^3/uL (4.0-10.0)
[2023-05-12] MEDS: IPRATROPIUM 0.5MG/ALBUTEROL 2.5MG INH SOL UD 3ML (DUONEB) NEB SCH (12:26)
[2023-05-12 12:32] LABS: INR 1.01; PARTIAL THROMBOPLASTIN TIME 30.7 SECONDS (24.8-34.2)
[2023-05-12] MEDS: methylPREDNISolone 40MG 1ML VIAL IV ONE (12:38)
[2023-05-12] MEDS: FUROSEMIDE 100MG/10ML VIAL IV ONE (12:39)
[2023-05-12] MEDS: DOXYCYCLINE HYCLATE 100 MG in D5W MINI-BAG PLUS 100 ML IV SCH (12:40)
[2023-05-12 13:46] VITALS: BP 181/96; TEMP 97.2; O2SAT 95
[2023-05-12] MEDS: hydrALAZINE 20MG/ML 1ML VIAL IV PRN (14:04)
[2023-05-12] MEDS: ALBUTEROL SULFATE 2.5MG/0.5ML INH NEB SOLN NEB PRN (14:04)
[2023-05-12 14:27] VITALS: BP 172/87; O2SAT 96
[2023-05-12 15:04] VITALS: BP 162/101; O2SAT 97
[2023-05-12] MEDS: FUROSEMIDE injection 250 MG in D5W 225 ML IV SCH (16:42)
[2023-05-12 18:00] VITALS: BP 183/93; O2SAT 96
[2023-05-12] MEDS ORDERED: MORPHINE 2 MG/ML 1ML VIAL IV PRN (18:45)
[2023-05-12] MEDS: hydrALAZINE 20MG/ML 1ML VIAL IV ONE (18:56)
[2023-05-12 19:28] VITALS: BP 138/89
[2023-05-12 19:31] LABS: HEMATOCRIT 22.5 % (42.0-52.0); HEMOGLOBIN 7.1 g/dl (13.5-17.5); MEAN CORPUSCULAR HEMOGLOBIN 31.4 pg (27.0-33.0); MEAN CORPUSCULAR HGB CONC 31.6 g/dl (32.0-36.5); MEAN CORPUSCULAR VOLUME 99.6 fl (80.0-96.0); PLATELET COUNT, AUTOMATED 102 10^3/uL (150-450); RED BLOOD COUNT 2.26 10^6/uL (4.30-6.10); WHITE BLOOD COUNT 12.1 10^3/uL (4.0-10.0)
[2023-05-12 20:00] VITALS: BP 141/71; TEMP 97.7; O2SAT 97
[2023-05-12 20:15] LABS: CK-MB VALUE MASS 10.5 NG/ML (<3.6)
[2023-05-12 20:16] LABS: MB/CK RELATIVE INDEX 3.65 (< OR =4)
[2023-05-12] MEDS: PANTOPRAZOLE 40MG VIAL IV SCH (21:13)
[2023-05-13] VITALS (10 sets, daily range): BP systolic 127–173; BP diastolic 61–93; TEMP 96.8–97.6; O2SAT 93–99
[2023-05-13 05:22] LABS: HEMATOCRIT 21.2 % (42.0-52.0); MEAN CORPUSCULAR HEMOGLOBIN 31.3 pg (27.0-33.0); MEAN CORPUSCULAR HGB CONC 31.6 g/dl (32.0-36.5); MEAN CORPUSCULAR VOLUME 99.1 fl (80.0-96.0); RED BLOOD COUNT 2.14 10^6/uL (4.30-6.10); WHITE BLOOD COUNT 7.8 10^3/uL (4.0-10.0)
[2023-05-13 05:25] LABS: HEMOGLOBIN 6.7 g/dl (13.5-17.5); PLATELET COUNT, AUTOMATED 109 10^3/uL (150-450)
[2023-05-13 05:59] LABS: ALBUMIN 2.3 G/DL (3.2-5.2); BILIRUBIN,TOTAL 0.3 MG/DL (0.3-1.2); CALCIUM LEVEL 8.1 MG/DL (8.3-10.6); CREATININE FOR GFR 3.85 MG/DL (0.70-1.30); GLOMERULAR FILTRATION RATE 16.8 (>49); POTASSIUM SERUM 4.1 MMOL/L (3.5-5.1); TOTAL PROTEIN 5.4 G/DL (5.7-8.2)
[2023-05-13 07:17] LABS: HEMATOCRIT 21.9 % (42.0-52.0)
[2023-05-13 07:22] LABS: HEMOGLOBIN 6.8 g/dl (13.5-17.5)
[2023-05-13] MEDS: cefTRIAXone SOD 2 GM in D5W MINI-BAG PLUS 50 ML IV SCH (09:19)
[2023-05-13] MEDS: methylPREDNISolone 40MG 1ML VIAL IV SCH (09:19)
[2023-05-13] MEDS ORDERED: VARIBAR PUDDING 40% w/v 230ML TUBE As Ordered ONE (10:54)
[2023-05-13] MEDS ORDERED: BARIUM SULFATE 700 MG TABLET (E-Z-DISK) As Ordered ONE (10:55)
[2023-05-13] MEDS ORDERED: E-Z-PAQUE 96% w/w SUSP 176GM BTL As Ordered ONE (10:55)
[2023-05-13] MEDS ORDERED: VARIBAR NECTAR 40% w/v 240ML SUSP BTL As Ordered ONE (10:55)
[2023-05-13 15:53] LABS: LYMPH # 0.3 10^3/uL (1.5-5.0); LYMPH % 5.3 % (24.0-44.0); MEAN CORPUSCULAR HGB CONC 32.2 g/dl (32.0-36.5); MEAN CORPUSCULAR VOLUME 96.1 fl (80.0-96.0); MONO # 0.1 10^3/uL (0.0-0.8); MONO % 2.3 % (2.0-8.0); NEUTROPHILS # 5.5 10^3/uL (1.5-8.5); NEUTROPHILS % 91.6 % (36.0-66.0); PLATELET COUNT, AUTOMATED 115 10^3/uL (150-450); RED BLOOD COUNT 2.84 10^6/uL (4.30-6.10); WHITE BLOOD COUNT 6.1 10^3/uL (4.0-10.0)
[2023-05-13 16:01] LABS: HEMATOCRIT 27.3 % (42.0-52.0); HEMOGLOBIN 8.8 g/dl (13.5-17.5)
[2023-05-13 19:47] LABS: HEMATOCRIT 25.2 % (42.0-52.0); HEMOGLOBIN 8.2 g/dl (13.5-17.5); MEAN CORPUSCULAR HEMOGLOBIN 31.1 pg (27.0-33.0); MEAN CORPUSCULAR HGB CONC 32.5 g/dl (32.0-36.5); MEAN CORPUSCULAR VOLUME 95.5 fl (80.0-96.0); PLATELET COUNT, AUTOMATED 123 10^3/uL (150-450); RED BLOOD COUNT 2.64 10^6/uL (4.30-6.10)
[2023-05-14] VITALS (20 sets, daily range): BP systolic 156–180; BP diastolic 70–102; TEMP 97.2–98.7; O2SAT 90–97
[2023-05-14 06:22] LABS: ALBUMIN 2.2 G/DL (3.2-5.2); BILIRUBIN,TOTAL 0.3 MG/DL (0.3-1.2); CALCIUM LEVEL 8.4 MG/DL (8.3-10.6); CREATININE FOR GFR 3.95 MG/DL (0.70-1.30); GLOMERULAR FILTRATION RATE 16.3 (>49); POTASSIUM SERUM 3.9 MMOL/L (3.5-5.1); TOTAL PROTEIN 5.7 G/DL (5.7-8.2)
[2023-05-14 07:24] LABS: BASO % 0.3 % (0.0-1.0); EOS % 0.1 % (0.0-3.0); HEMATOCRIT 26.2 % (42.0-52.0); HEMOGLOBIN 8.5 g/dl (13.5-17.5); LYMPH # 1.8 10^3/uL (1.5-5.0); LYMPH % 24.3 % (24.0-44.0); MEAN CORPUSCULAR HEMOGLOBIN 31.1 pg (27.0-33.0); MEAN CORPUSCULAR HGB CONC 32.4 g/dl (32.0-36.5); MONO % 14.4 % (2.0-8.0); NEUTROPHILS # 4.3 10^3/uL (1.5-8.5); NEUTROPHILS % 60.3 % (36.0-66.0); PLATELET COUNT, AUTOMATED 119 10^3/uL (150-450); RED BLOOD COUNT 2.73 10^6/uL (4.30-6.10); WHITE BLOOD COUNT 7.2 10^3/uL (4.0-10.0)
[2023-05-14] MEDS: HEPARIN SOD (PORCINE) 5000UNITS/ML 1ML VIAL/SYRINGE SC SCH (20:21)
[2023-05-15] VITALS (25 sets, daily range): BP systolic 152–208; BP diastolic 77–112; TEMP 97.9–98.9; O2SAT 92–98
[2023-05-15 05:33] LABS: BASO % 0.1 % (0.0-1.0); EOS % 0.1 % (0.0-3.0); HEMATOCRIT 26.1 % (42.0-52.0); HEMOGLOBIN 8.3 g/dl (13.5-17.5); LYMPH # 1.9 10^3/uL (1.5-5.0); LYMPH % 25.9 % (24.0-44.0); MEAN CORPUSCULAR HEMOGLOBIN 30.7 pg (27.0-33.0); MEAN CORPUSCULAR HGB CONC 31.8 g/dl (32.0-36.5); MEAN CORPUSCULAR VOLUME 96.7 fl (80.0-96.0); MONO # 1.3 10^3/uL (0.0-0.8); MONO % 17.8 % (2.0-8.0); NEUTROPHILS % 55.5 % (36.0-66.0); PLATELET COUNT, AUTOMATED 147 10^3/uL (150-450); WHITE BLOOD COUNT 7.2 10^3/uL (4.0-10.0)
[2023-05-15 05:57] LABS: CALCIUM LEVEL 8.4 MG/DL (8.3-10.6); CREATININE FOR GFR 4.16 MG/DL (0.70-1.30); GLOMERULAR FILTRATION RATE 15.4 (>49); MAGNESIUM LEVEL 2.7 MG/DL (1.8-2.4); POTASSIUM SERUM 3.8 MMOL/L (3.5-5.1)
[2023-05-15] MEDS ORDERED: **hydrALAZINE HCL** 25 MG TAB PO SCH (06:00)
[2023-05-15] MEDS: hydrALAZINE 20MG/ML 1ML VIAL IV SCH (07:56)
[2023-05-15] MEDS: D5W 1,000 ML IV SCH (08:44)
[2023-05-15] MEDS ORDERED: MIRALAX *UNIT DOSE* 17GM PACKET GT SCH (09:00)
[2023-05-15] MEDS: cloNIDine HCL 0.1 MG/24 HR PATCH TOP SCH (10:43)
[2023-05-15] MEDS ORDERED: SCOPOLAMINE 1MG TRANSDERMAL PATCH TOP PRN (11:35)
[2023-05-15] MEDS: NYSTATIN 100,000 UNITS/GM TOPICAL PWD 15GM TOP SCH (13:57)
[2023-05-15] MEDS: **hydrALAZINE** 50 MG TAB GT SCH (13:57)
[2023-05-15] MEDS: amLODIPine 5 MG TAB GT SCH (13:58)
[2023-05-15] MEDS: SENNA SYRUP 5ML UDC GT SCH (13:59)
[2023-05-15] MEDS: SCOPOLAMINE 1MG TRANSDERMAL PATCH TOP SCH (13:59)
[2023-05-15 15:03] LABS: CALCIUM LEVEL 8.5 MG/DL (8.3-10.6); CREATININE FOR GFR 4.11 MG/DL (0.70-1.30); GLOMERULAR FILTRATION RATE 15.6 (>49); POTASSIUM SERUM 3.7 MMOL/L (3.5-5.1)
[2023-05-15] MEDS: VALPROIC ACID 250MG/5ML SOL ORAL SYRINGE GT SCH (16:33)
[2023-05-15] MEDS: FAMOTIDINE 40MG/5ML ORAL SUSPENSON 50ML BOTTLE GT SCH (20:07)
[2023-05-15] MEDS: ONDANSETRON 4MG 2ML VIAL IV PRN (20:29)
[2023-05-15] MEDS: ASENAPINE 5MG SUBLINGUAL TAB (SAPHRIS) SL SCH (21:01)
[2023-05-16] VITALS (21 sets, daily range): BP systolic 127–167; BP diastolic 59–88; TEMP 97.5–98.8; O2SAT 90–98
[2023-05-16 06:02] LABS: BASO % 0.5 % (0.0-1.0); EOS % 0.7 % (0.0-3.0); HEMATOCRIT 25.5 % (42.0-52.0); HEMOGLOBIN 7.7 g/dl (13.5-17.5); LYMPH # 1.4 10^3/uL (1.5-5.0); LYMPH % 26.1 % (24.0-44.0); MEAN CORPUSCULAR HEMOGLOBIN 30.4 pg (27.0-33.0); MEAN CORPUSCULAR HGB CONC 30.2 g/dl (32.0-36.5); MEAN CORPUSCULAR VOLUME 100.8 fl (80.0-96.0); MONO # 0.9 10^3/uL (0.0-0.8); MONO % 15.8 % (2.0-8.0); NEUTROPHILS # 3.1 10^3/uL (1.5-8.5); NEUTROPHILS % 56.4 % (36.0-66.0); PLATELET COUNT, AUTOMATED 159 10^3/uL (150-450); RED BLOOD COUNT 2.53 10^6/uL (4.30-6.10); WHITE BLOOD COUNT 5.5 10^3/uL (4.0-10.0)
[2023-05-16 06:37] LABS: CALCIUM LEVEL 8.2 MG/DL (8.3-10.6); CREATININE FOR GFR 3.89 MG/DL (0.70-1.30); GLOMERULAR FILTRATION RATE 16.6 (>49); MAGNESIUM LEVEL 2.8 MG/DL (1.8-2.4)
[2023-05-16 14:40] LABS: CALCIUM LEVEL 8.1 MG/DL (8.3-10.6); CREATININE FOR GFR 3.81 MG/DL (0.70-1.30); POTASSIUM SERUM 4.2 MMOL/L (3.5-5.1)
[2023-05-16] MEDS: D5W 1,000 ML IV SCH (18:25)
[2023-05-17] VITALS (15 sets, daily range): BP systolic 122–175; BP diastolic 70–102; TEMP 97.2–97.9; O2SAT 94–98
[2023-05-17 06:41] LABS: BASO % 0.6 % (0.0-1.0); EOS % 2.7 % (0.0-3.0); HEMATOCRIT 25.8 % (42.0-52.0); HEMOGLOBIN 7.9 g/dl (13.5-17.5); LYMPH % 36.5 % (24.0-44.0); MEAN CORPUSCULAR HEMOGLOBIN 31.1 pg (27.0-33.0); MEAN CORPUSCULAR HGB CONC 30.6 g/dl (32.0-36.5); MEAN CORPUSCULAR VOLUME 101.6 fl (80.0-96.0); MONO % 12.9 % (2.0-8.0); NEUTROPHILS # 2.4 10^3/uL (1.5-8.5); NEUTROPHILS % 46.7 % (36.0-66.0); PLATELET COUNT, AUTOMATED 164 10^3/uL (150-450); RED BLOOD COUNT 2.54 10^6/uL (4.30-6.10); WHITE BLOOD COUNT 5.1 10^3/uL (4.0-10.0)
[2023-05-17 06:42] LABS: EOS # 0.1 10^3/uL (0.0-0.5); LYMPH # 1.9 10^3/uL (1.5-5.0); MONO # 0.7 10^3/uL (0.0-0.8)
[2023-05-17 07:12] LABS: CALCIUM LEVEL 7.9 MG/DL (8.3-10.6); CREATININE FOR GFR 3.51 MG/DL (0.70-1.30); GLOMERULAR FILTRATION RATE 18.7 (>49); MAGNESIUM LEVEL 2.7 MG/DL (1.8-2.4)
[2023-05-17] MEDS: D5W 1,000 ML IV SCH (10:23)
[2023-05-18] VITALS (28 sets, daily range): BP systolic 135–188; BP diastolic 68–94; TEMP 97.5–98.5; O2SAT 93–98
[2023-05-18 06:35] LABS: RED BLOOD COUNT 2.81 10^6/uL (4.30-6.10)
[2023-05-18 06:36] LABS: BASO % 0.5 % (0.0-1.0); EOS # 0.2 10^3/uL (0.0-0.5); EOS % 3.3 % (0.0-3.0); HEMATOCRIT 27.4 % (42.0-52.0); HEMOGLOBIN 8.6 g/dl (13.5-17.5); LYMPH # 1.5 10^3/uL (1.5-5.0); LYMPH % 25.4 % (24.0-44.0); MEAN CORPUSCULAR HEMOGLOBIN 30.6 pg (27.0-33.0); MEAN CORPUSCULAR HGB CONC 31.4 g/dl (32.0-36.5); MEAN CORPUSCULAR VOLUME 97.5 fl (80.0-96.0); MONO # 0.7 10^3/uL (0.0-0.8); MONO % 11.8 % (2.0-8.0); NEUTROPHILS # 3.5 10^3/uL (1.5-8.5); NEUTROPHILS % 58.7 % (36.0-66.0); PLATELET COUNT, AUTOMATED 192 10^3/uL (150-450)
[2023-05-18 07:00] LABS: PERCENT SATURATION 39.2 % (19.7-50.0); PERCENT SATURATION 39.8 % (19.7-50.0)
[2023-05-18 07:02] LABS: FERRITIN 177.2 NG/ML (10.5-307.3)
[2023-05-18 07:09] LABS: CALCIUM LEVEL 7.7 MG/DL (8.3-10.6); CREATININE FOR GFR 3.02 MG/DL (0.70-1.30); GLOMERULAR FILTRATION RATE 22.2 (>49); MAGNESIUM LEVEL 2.3 MG/DL (1.8-2.4); POTASSIUM SERUM 3.8 MMOL/L (3.5-5.1)
[2023-05-18 07:13] LABS: FERRITIN 161.2 NG/ML (10.5-307.3)
[2023-05-18] MEDS: **hydrALAZINE HCL** 25 MG TAB GT SCH ×3 (09:18→21:28)
[2023-05-18] MEDS: LACTOBACILLUS ACIDOPHILUS CAP (BACID) PEG SCH (18:35)
[2023-05-18] MEDS: D5W 1,000 ML IV SCH (21:27)
[2023-05-19] VITALS (19 sets, daily range): BP systolic 125–185; BP diastolic 70–93; TEMP 97.4–98.6; O2SAT 94–99
[2023-05-19 05:36] LABS: HEMOGLOBIN 8.3 g/dl (13.5-17.5); MEAN CORPUSCULAR HEMOGLOBIN 31.2 pg (27.0-33.0); MEAN CORPUSCULAR HGB CONC 31.9 g/dl (32.0-36.5); MEAN CORPUSCULAR VOLUME 97.7 fl (80.0-96.0); NEUTROPHILS % 56.5 % (36.0-66.0); PLATELET COUNT, AUTOMATED 170 10^3/uL (150-450); RED BLOOD COUNT 2.66 10^6/uL (4.30-6.10); WHITE BLOOD COUNT 4.5 10^3/uL (4.0-10.0)
[2023-05-19 05:37] LABS: BASO % 0.4 % (0.0-1.0); EOS # 0.1 10^3/uL (0.0-0.5); EOS % 2.4 % (0.0-3.0); LYMPH # 1.3 10^3/uL (1.5-5.0); MONO # 0.5 10^3/uL (0.0-0.8); MONO % 11.5 % (2.0-8.0); NEUTROPHILS # 2.5 10^3/uL (1.5-8.5)
[2023-05-19 06:01] LABS: CALCIUM LEVEL 7.6 MG/DL (8.3-10.6); CREATININE FOR GFR 3.04 MG/DL (0.70-1.30); GLOMERULAR FILTRATION RATE 22.1 (>49); MAGNESIUM LEVEL 2.4 MG/DL (1.8-2.4); POTASSIUM SERUM 4.1 MMOL/L (3.5-5.1)
[2023-05-19] MEDS: amLODIPine 5 MG TAB GT SCH (08:16)
[2023-05-19] MEDS: DARBEPOETIN 100MCG/0.5ML *NON-DIALYSIS* SYRINGE SC SCH (09:21)
[2023-05-20 05:40] VITALS: BP 131/69; TEMP 97.5; O2SAT 92
[2023-05-20 06:29] LABS: BASO % 0.2 % (0.0-1.0); EOS # 0.1 10^3/uL (0.0-0.5); EOS % 2.2 % (0.0-3.0); HEMATOCRIT 28.8 % (42.0-52.0); HEMOGLOBIN 9.1 g/dl (13.5-17.5); LYMPH % 21.6 % (24.0-44.0); MEAN CORPUSCULAR HEMOGLOBIN 31.2 pg (27.0-33.0); MEAN CORPUSCULAR HGB CONC 31.6 g/dl (32.0-36.5); MEAN CORPUSCULAR VOLUME 98.6 fl (80.0-96.0); MONO # 0.4 10^3/uL (0.0-0.8); MONO % 8.9 % (2.0-8.0); NEUTROPHILS # 3.1 10^3/uL (1.5-8.5); NEUTROPHILS % 66.9 % (36.0-66.0); PLATELET COUNT, AUTOMATED 199 10^3/uL (150-450); RED BLOOD COUNT 2.92 10^6/uL (4.30-6.10); WHITE BLOOD COUNT 4.6 10^3/uL (4.0-10.0)
[2023-05-20 06:50] LABS: CREATININE FOR GFR 3.18 MG/DL (0.70-1.30); GLOMERULAR FILTRATION RATE 20.9 (>49); MAGNESIUM LEVEL 2.6 MG/DL (1.8-2.4); POTASSIUM SERUM 4.1 MMOL/L (3.5-5.1)
[2023-05-20 14:00] VITALS: BP 127/70; TEMP 97.3; O2SAT 98
[2023-05-20 21:40] VITALS: BP 120/66; TEMP 97.2; O2SAT 97
[2023-05-21 05:40] VITALS: BP 120/58; TEMP 97.3; O2SAT 96
[2023-05-21 07:31] LABS: HEMATOCRIT 29.7 % (42.0-52.0); HEMOGLOBIN 9.3 g/dl (13.5-17.5); MEAN CORPUSCULAR HEMOGLOBIN 30.6 pg (27.0-33.0); MEAN CORPUSCULAR HGB CONC 31.3 g/dl (32.0-36.5); MEAN CORPUSCULAR VOLUME 97.7 fl (80.0-96.0); PLATELET COUNT, AUTOMATED 205 10^3/uL (150-450); RED BLOOD COUNT 3.04 10^6/uL (4.30-6.10); WHITE BLOOD COUNT 4.1 10^3/uL (4.0-10.0)
[2023-05-21 08:02] LABS: ALBUMIN 2.2 G/DL (3.2-5.2); BILIRUBIN,TOTAL 0.3 MG/DL (0.3-1.2); CREATININE FOR GFR 3.39 MG/DL (0.70-1.30); GLOMERULAR FILTRATION RATE 19.5 (>49); MAGNESIUM LEVEL 2.8 MG/DL (1.8-2.4); POTASSIUM SERUM 4.3 MMOL/L (3.5-5.1); TOTAL PROTEIN 5.5 G/DL (5.7-8.2)
[2023-05-21] MEDS: OMEPRAZOLE/SODIUM BICARB 20-840MG 10ML ORAL SYRINGE GT SCH (09:44)
[2023-05-21] MEDS: LR 1,000 ML IV SCH (10:45)
[2023-05-21 14:00] VITALS: BP 114/50; TEMP 97.2; O2SAT 92
[2023-05-21 21:05] VITALS: BP 135/81; TEMP 97.5; O2SAT 95
[2023-05-22 05:25] VITALS: BP 162/96; TEMP 97.7; O2SAT 96
[2023-05-22 06:33] VITALS: BP 141/73
[2023-05-22 06:50] LABS: HEMATOCRIT 30.1 % (42.0-52.0); HEMOGLOBIN 9.4 g/dl (13.5-17.5); MEAN CORPUSCULAR HEMOGLOBIN 30.7 pg (27.0-33.0); MEAN CORPUSCULAR HGB CONC 31.2 g/dl (32.0-36.5); MEAN CORPUSCULAR VOLUME 98.4 fl (80.0-96.0); PLATELET COUNT, AUTOMATED 227 10^3/uL (150-450); RED BLOOD COUNT 3.06 10^6/uL (4.30-6.10); WHITE BLOOD COUNT 3.9 10^3/uL (4.0-10.0)
[2023-05-22 07:59] LABS: ALBUMIN 2.2 G/DL (3.2-5.2); BILIRUBIN,TOTAL 0.2 MG/DL (0.3-1.2); CALCIUM LEVEL 8.2 MG/DL (8.3-10.6); CREATININE FOR GFR 3.43 MG/DL (0.70-1.30); GLOMERULAR FILTRATION RATE 19.2 (>49); POTASSIUM SERUM 4.1 MMOL/L (3.5-5.1); TOTAL PROTEIN 5.7 G/DL (5.7-8.2)
[2023-05-22 14:00] VITALS: BP 110/50; TEMP 97; O2SAT 92
[2023-05-22] MEDS ORDERED: GLUCAGON INJ 1MG VIAL SC PRN (15:55)
[2023-05-22] MEDS ORDERED: GLUCOSE 4GM CHEW TABLET PO PRN (15:55)
[2023-05-22 21:05] VITALS: BP 148/91; TEMP 98.8; O2SAT 98
[2023-05-23 05:31] VITALS: BP 151/90; TEMP 97.5; O2SAT 96
[2023-05-23 07:25] LABS: HEMATOCRIT 27.4 % (42.0-52.0); HEMOGLOBIN 8.6 g/dl (13.5-17.5); MEAN CORPUSCULAR HEMOGLOBIN 30.9 pg (27.0-33.0); MEAN CORPUSCULAR HGB CONC 31.4 g/dl (32.0-36.5); MEAN CORPUSCULAR VOLUME 98.6 fl (80.0-96.0); PLATELET COUNT, AUTOMATED 192 10^3/uL (150-450); RED BLOOD COUNT 2.78 10^6/uL (4.30-6.10); WHITE BLOOD COUNT 3.5 10^3/uL (4.0-10.0)
[2023-05-23 07:57] LABS: ALBUMIN 2.2 G/DL (3.2-5.2); BILIRUBIN,TOTAL 0.2 MG/DL (0.3-1.2); CALCIUM LEVEL 8.2 MG/DL (8.3-10.6); CREATININE FOR GFR 3.15 MG/DL (0.70-1.30); GLOMERULAR FILTRATION RATE 21.2 (>49); MAGNESIUM LEVEL 2.7 MG/DL (1.8-2.4); PHOSPHORUS LEVEL 5.9 MG/DL (2.4-5.1); TOTAL PROTEIN 5.3 G/DL (5.7-8.2)
[2023-05-23] MEDS: D5W/LR 1,000 ML IV SCH (10:32)
[2023-05-23] MEDS: DEXTROSE 50% 50ML SYRINGE IV ONE (13:25)
[2023-05-23 14:00] VITALS: BP 114/62; TEMP 97.5; O2SAT 93
[2023-05-23 21:50] VITALS: BP 139/59; TEMP 97.2; O2SAT 95
[2023-05-24 05:20] VITALS: BP 151/73; TEMP 97.5; O2SAT 96
[2023-05-24 06:46] LABS: HEMOGLOBIN 8.9 g/dl (13.5-17.5); MEAN CORPUSCULAR HEMOGLOBIN 30.6 pg (27.0-33.0); MEAN CORPUSCULAR HGB CONC 30.7 g/dl (32.0-36.5); MEAN CORPUSCULAR VOLUME 99.7 fl (80.0-96.0); PLATELET COUNT, AUTOMATED 201 10^3/uL (150-450); RED BLOOD COUNT 2.91 10^6/uL (4.30-6.10); WHITE BLOOD COUNT 3.6 10^3/uL (4.0-10.0)
[2023-05-24 07:09] LABS: ALBUMIN 2.2 G/DL (3.2-5.2); BILIRUBIN,TOTAL 0.2 MG/DL (0.3-1.2); CALCIUM LEVEL 8.5 MG/DL (8.3-10.6); CREATININE FOR GFR 2.93 MG/DL (0.70-1.30); MAGNESIUM LEVEL 2.9 MG/DL (1.8-2.4); PHOSPHORUS LEVEL 5.1 MG/DL (2.4-5.1); TOTAL PROTEIN 5.5 G/DL (5.7-8.2)
[2023-05-24 09:43] VITALS: BP 147/72
[2023-05-24] MEDS: D10W 1,000 ML IV SCH (09:50)
[2023-05-24] MEDS: SENNA SYRUP 5ML UDC GT PRN (10:07)
[2023-05-24] MEDS: FAMOTIDINE 40MG/5ML ORAL SUSPENSON 50ML BOTTLE GT SCH (10:29)
[2023-05-24 13:54] VITALS: BP 140/68; TEMP 97.7; O2SAT 94
[2023-05-24 20:20] VITALS: BP 135/68; TEMP 97.7; O2SAT 93
[2023-05-25 05:30] VITALS: BP 135/70; TEMP 97.9; O2SAT 96
[2023-05-25 07:01] LABS: HEMATOCRIT 27.3 % (42.0-52.0); HEMOGLOBIN 8.5 g/dl (13.5-17.5); MEAN CORPUSCULAR HEMOGLOBIN 31.1 pg (27.0-33.0); MEAN CORPUSCULAR HGB CONC 31.1 g/dl (32.0-36.5); PLATELET COUNT, AUTOMATED 180 10^3/uL (150-450); RED BLOOD COUNT 2.73 10^6/uL (4.30-6.10); WHITE BLOOD COUNT 3.8 10^3/uL (4.0-10.0)
[2023-05-25 07:25] LABS: ALBUMIN 2.1 G/DL (3.2-5.2); BILIRUBIN,TOTAL 0.2 MG/DL (0.3-1.2); CALCIUM LEVEL 8.2 MG/DL (8.3-10.6); CREATININE FOR GFR 2.66 MG/DL (0.70-1.30); GLOMERULAR FILTRATION RATE 25.7 (>49); MAGNESIUM LEVEL 2.6 MG/DL (1.8-2.4); PHOSPHORUS LEVEL 4.3 MG/DL (2.4-5.1); POTASSIUM SERUM 4.1 MMOL/L (3.5-5.1); TOTAL PROTEIN 5.1 G/DL (5.7-8.2)
[2023-05-25] MEDS: FUROSEMIDE 40MG/4ML VIAL IV ONE (13:57)
[2023-05-25 14:05] VITALS: BP 102/51; TEMP 97.7; O2SAT 95
[2023-05-25] MEDS: BISACODYL 10MG SUPP PR SCH (17:14)
[2023-05-25 21:00] VITALS: BP 154/87; TEMP 97.7; O2SAT 96
[2023-05-26 05:19] VITALS: BP 155/88; TEMP 97.9; O2SAT 96
[2023-05-26 06:30] LABS: HEMATOCRIT 29.6 % (42.0-52.0); MEAN CORPUSCULAR HEMOGLOBIN 30.8 pg (27.0-33.0); MEAN CORPUSCULAR HGB CONC 30.4 g/dl (32.0-36.5); MEAN CORPUSCULAR VOLUME 101.4 fl (80.0-96.0); PLATELET COUNT, AUTOMATED 187 10^3/uL (150-450); RED BLOOD COUNT 2.92 10^6/uL (4.30-6.10); WHITE BLOOD COUNT 4.4 10^3/uL (4.0-10.0)
[2023-05-26 06:57] LABS: ALBUMIN 2.2 G/DL (3.2-5.2); BILIRUBIN,TOTAL 0.2 MG/DL (0.3-1.2); CALCIUM LEVEL 8.4 MG/DL (8.3-10.6); CREATININE FOR GFR 2.58 MG/DL (0.70-1.30); GLOMERULAR FILTRATION RATE 26.7 (>49); POTASSIUM SERUM 4.8 MMOL/L (3.5-5.1); TOTAL PROTEIN 5.4 G/DL (5.7-8.2)
[2023-05-26] MEDS: D10W 500 ML IV SCH (09:16)
[2023-05-26 14:00] VITALS: BP 123/73; TEMP 98.1; O2SAT 95
[2023-05-26 19:55] VITALS: BP 133/82; TEMP 98.1; O2SAT 96
[2023-05-27 04:00] VITALS: BP 134/82; TEMP 98.1; O2SAT 96
[2023-05-27 07:07] LABS: HEMATOCRIT 27.4 % (42.0-52.0); HEMOGLOBIN 8.4 g/dl (13.5-17.5); MEAN CORPUSCULAR HEMOGLOBIN 31.2 pg (27.0-33.0); MEAN CORPUSCULAR HGB CONC 30.7 g/dl (32.0-36.5); MEAN CORPUSCULAR VOLUME 101.9 fl (80.0-96.0); PLATELET COUNT, AUTOMATED 153 10^3/uL (150-450); RED BLOOD COUNT 2.69 10^6/uL (4.30-6.10); WHITE BLOOD COUNT 6.1 10^3/uL (4.0-10.0)
[2023-05-27 07:39] LABS: ALBUMIN 1.8 G/DL (3.2-5.2); BILIRUBIN,TOTAL 0.3 MG/DL (0.3-1.2); CALCIUM LEVEL 7.9 MG/DL (8.3-10.6); CREATININE FOR GFR 2.65 MG/DL (0.70-1.30); GLOMERULAR FILTRATION RATE 25.8 (>49); POTASSIUM SERUM 4.8 MMOL/L (3.5-5.1); TOTAL PROTEIN 4.7 G/DL (5.7-8.2)
[2023-05-27 09:00] VITALS: BP_SYST 161; BP_DIAS 90; BP_DIAS 91; TEMP 97.9; O2SAT 96
[2023-05-27 14:00] VITALS: BP 132/71; TEMP 97.2; O2SAT 96
[2023-05-27 19:37] VITALS: BP 105/60; TEMP 97.7; O2SAT 97
[2023-05-28 04:31] VITALS: BP 152/82; TEMP 97.5; O2SAT 98
[2023-05-28 06:23] LABS: HEMATOCRIT 28.8 % (42.0-52.0); HEMOGLOBIN 8.9 g/dl (13.5-17.5); MEAN CORPUSCULAR HEMOGLOBIN 31.4 pg (27.0-33.0); MEAN CORPUSCULAR HGB CONC 30.9 g/dl (32.0-36.5); MEAN CORPUSCULAR VOLUME 101.8 fl (80.0-96.0); PLATELET COUNT, AUTOMATED 174 10^3/uL (150-450); RED BLOOD COUNT 2.83 10^6/uL (4.30-6.10); WHITE BLOOD COUNT 4.2 10^3/uL (4.0-10.0)
[2023-05-28 07:01] LABS: ALBUMIN 2.3 G/DL (3.2-5.2); BILIRUBIN,TOTAL 0.3 MG/DL (0.3-1.2); CALCIUM LEVEL 8.7 MG/DL (8.3-10.6); CREATININE FOR GFR 2.62 MG/DL (0.70-1.30); GLOMERULAR FILTRATION RATE 26.2 (>49); POTASSIUM SERUM 4.7 MMOL/L (3.5-5.1); TOTAL PROTEIN 5.5 G/DL (5.7-8.2)
[2023-05-28] MEDS: BISACODYL 10MG SUPP PR SCH (08:57)
[2023-05-28 14:00] VITALS: BP 114/55; TEMP 97.5; O2SAT 96
[2023-05-28 20:00] VITALS: BP 134/74; TEMP 97.3; O2SAT 96
[2023-05-29] MEDS: DEXTROSE 50% 50ML SYRINGE IV PRN (03:17)
[2023-05-29 06:00] VITALS: BP 137/69; TEMP 97.5; O2SAT 98
[2023-05-29 09:05] LABS: CALCIUM LEVEL 8.5 MG/DL (8.3-10.6); CREATININE FOR GFR 2.6 MG/DL (0.70-1.30); GLOMERULAR FILTRATION RATE 26.4 (>49); POTASSIUM SERUM 4.6 MMOL/L (3.5-5.1)
[2023-05-29] MEDS ORDERED: HYDR100T GT (10:54)
[2023-05-29] MEDS ORDERED: AMLO1TAB24 GT (10:54)
[2023-05-29] MEDS ORDERED: GNPPAD5 XX (12:55)
[2023-05-29] MEDS ORDERED: LANC1COM MC (12:55)
[2023-05-29] MEDS ORDERED: GLUCMIS7 XX (12:55)
[2023-05-29 14:00] VITALS: BP 136/62; TEMP 97.3; O2SAT 96
[2023-05-29] MEDS ORDERED: DEXT4TAB83 PO (14:56)
[2023-05-29 20:00] VITALS: BP 122/56; TEMP 98.1; O2SAT 95
[2023-05-30 06:00] VITALS: BP 170/86; TEMP 97.7; O2SAT 94
[2023-05-30 06:45] VITALS: BP 150/83
[2023-05-30 09:08] VITALS: BP 153/103
== END 2023-05-30 10:47 | disposition home or self-care (01) | DRG 193 ==
LOC: M ED 05:27 → M ED INP 11:28 → ENRESERV 12:24 → M PCU 13:40 → M MSPAV 05-19 17:27
PROVIDERS: ADMIT Internal Medicine; ATTEND Student in an Organized Health Care Education/Training Program
PROC: 30233N1 Transfusion of Nonautologous Red Blood Cells into Peripheral Vein, Percutaneous Approach (ICD-10-PCS; principal; 2023-05-13)
DX: J18.9 Pneumonia, unspecified organism (principal); J96.01 Acute respiratory failure with hypoxia; I50.33 Acute on chronic diastolic (congestive) heart failure; G80.1 Spastic diplegic cerebral palsy; I13.0 Hypertensive heart and chronic kidney disease with heart failure and stage 1 through stage 4 chronic kidney disease, or unspecified chronic kidney disease; E87.0 Hyperosmolality and hypernatremia; N17.9 Acute kidney failure, unspecified; N18.4 Chronic kidney disease, stage 4 (severe); R04.2 Hemoptysis; I24.89 Other forms of acute ischemic heart disease; F70 Mild intellectual disabilities; E87.5 Hyperkalemia; I44.1 Atrioventricular block, second degree; Z93.1 Gastrostomy status; D46.9 Myelodysplastic syndrome, unspecified; K21.9 Gastro-esophageal reflux disease without esophagitis; E16.2 Hypoglycemia, unspecified; R13.12 Dysphagia, oropharyngeal phase; N40.0 Benign prostatic hyperplasia without lower urinary tract symptoms; F32.A Depression, unspecified; Z98.49 Cataract extraction status, unspecified eye; I16.0 Hypertensive urgency; Z79.899 Other long term (current) drug therapy; Z88.6 Allergy status to analgesic agent

== ENCOUNTER 2023-06-06 14:54 | Inpatient (IN) | payer MEDICARE, MEDICAID ==
[~2023-06-06] VITALS: Ht 188 cm; Wt 83.4 kg
[~2023-06-06 14:54] MED LIST changes: +ACET1TAB55 GT; +DESI13CR2 TOP; +DEXT4TAB83 PO; +GLUCMIS7 XX; +GNPPAD5 XX; +GUAI100L6 GT; +HYDR100T GT; +IMIP1TAB3 PO; -IMIP25TA3 PO; +LANC1COM MC; +SENN8.8S11 GT; +SM CPOW GT; +TRIPOIN9 TOP
[2023-06-06] MEDS: IPRATROPIUM 0.5MG/ALBUTEROL 2.5MG INH SOL UD 3ML (DUONEB) NEB ONE (15:29)
[2023-06-06 16:06] LABS: VENOUS BASE EXCESS 1.7 (-2.0-2.0); VENOUS HCO3 27.2 MMOL/L (23.0-27.0); VENOUS O2 SATURATION 97.7 % (60.0-80.0); VENOUS PARTIAL PRESSURE CO2 46.8 mmHg (38.0-50.0); VENOUS PARTIAL PRESSURE O2 111.8 mmHg (30.0-50.0); VENOUS PH 7.382 UNITS (7.330-7.430); VENOUS TOTAL CO2 28.6 MMOL/L (24.0-28.0)
[2023-06-06 16:13] LABS: BASO % 0.2 % (0.0-1.0); EOS % 0.2 % (0.0-3.0); HEMATOCRIT 30.6 % (42.0-52.0); HEMOGLOBIN 9.5 g/dl (13.5-17.5); LYMPH # 0.9 10^3/uL (1.5-5.0); LYMPH % 14.8 % (24.0-44.0); MONO # 0.8 10^3/uL (0.0-0.8); MONO % 12.5 % (2.0-8.0); NEUTROPHILS # 4.5 10^3/uL (1.5-8.5); NEUTROPHILS % 71.8 % (36.0-66.0); PLATELET COUNT, AUTOMATED 110 10^3/uL (150-450); RED BLOOD COUNT 2.97 10^6/uL (4.30-6.10); WHITE BLOOD COUNT 6.2 10^3/uL (4.0-10.0)
[2023-06-06 16:45] LABS: ALBUMIN 2.4 G/DL (3.2-5.2); ALKALINE PHOSPHATASE 110 U/L (46-116); ALT/SGPT 24 U/L (7.0-40); AST/SGOT 34 U/L (<34); BILIRUBIN,DIRECT 0.2 MG/DL (<0.4); BILIRUBIN,TOTAL < 0.2 MG/DL (0.3-1.2); BLOOD UREA NITROGEN 37 MG/DL (9-23); CALCIUM LEVEL 8.8 MG/DL (8.3-10.6); CARBON DIOXIDE LEVEL 28 MMOL/L (20-31); CHLORIDE LEVEL 102 MMOL/L (98-107); CREATININE FOR GFR 2.48 MG/DL (0.70-1.30); GLOMERULAR FILTRATION RATE 27.8 (>49); GLUCOSE, FASTING 103 MG/DL (74-106); SODIUM LEVEL 139 MMOL/L (136-145)
[2023-06-06 17:14] LABS: VALPROIC ACID (DEPAKOTE) 64.3 UG/ML (50.0-100.0)
[2023-06-06] MEDS ORDERED: FURO10EL GT (17:21)
[2023-06-06] MEDS ORDERED: HYDR100T PO (17:21)
[2023-06-06] MEDS ORDERED: HOME MED LIST COMPLETE! XX SCH (17:35)
[2023-06-06] MEDS ORDERED: ACETAMINOPHEN TAB 650MG DOSE (2X325MG) GT PRN (17:45)
[2023-06-06] MEDS ORDERED: NEOSPORIN TOP OINT 15GM TOP PRN (17:45)
[2023-06-06] MEDS ORDERED: MOM 30ML SUSPENSION UDC GT PRN (17:45)
[2023-06-06] MEDS ORDERED: GLUCAGON INJ 1MG VIAL SC PRN (18:10)
[2023-06-06] MEDS: cefTRIAXone SOD 1 GM in D5W MINI-BAG PLUS 50 ML IV ONE (18:40)
[2023-06-06 18:58] LABS: INR 0.89; PARTIAL THROMBOPLASTIN TIME 34.9 SECONDS (24.8-34.2); PROTHROMBIN TIME 11.8 SECONDS (12.5-14.5)
[2023-06-06] MEDS: PIPERACILLIN/TAZOBACTAM SOD 3.375 GM in D5W MINI-BAG PLUS 50 ML IV SCH (19:00)
[2023-06-06 21:00] VITALS: BP 159/97; TEMP 97; O2SAT 95
[2023-06-06] MEDS: D10W 1,000 ML IV SCH (22:05)
[2023-06-06] MEDS: SENNA SYRUP 5ML UDC GT SCH (22:27)
[2023-06-06] MEDS: DOCUSATE SOD LIQ 100MG/10ML UDC GT SCH (22:28)
[2023-06-06] MEDS: ASENAPINE 5MG SUBLINGUAL TAB (SAPHRIS) SL SCH (22:28)
[2023-06-06] MEDS: **hydrALAZINE** 50 MG TAB PO SCH (22:28)
[2023-06-06] MEDS: MIRALAX *UNIT DOSE* 17GM PACKET GT SCH (22:28)
[2023-06-06] MEDS: VALPROIC ACID 250MG/5ML SOL ORAL SYRINGE GT SCH (22:29)
[2023-06-06] MEDS: FAMOTIDINE 40MG/5ML ORAL SUSPENSON 50ML BOTTLE GT SCH (22:29)
[2023-06-06] MEDS: HEPARIN SOD (PORCINE) 5000UNITS/ML 1ML VIAL/SYRINGE SC SCH (22:29)
[2023-06-06] MEDS: NYSTATIN 100,000 UNITS/GM TOPICAL PWD 15GM TOP SCH (22:29)
[2023-06-07] MEDS: IPRATROPIUM 0.5MG/ALBUTEROL 2.5MG INH SOL UD 3ML (DUONEB) NEB SCH (00:39)
[2023-06-07 05:30] VITALS: BP 147/86; TEMP 97.5; O2SAT 95
[2023-06-07 06:09] LABS: HEMATOCRIT 28.7 % (42.0-52.0); MEAN CORPUSCULAR HEMOGLOBIN 31.9 pg (27.0-33.0); MEAN CORPUSCULAR HGB CONC 31.4 g/dl (32.0-36.5); MEAN CORPUSCULAR VOLUME 101.8 fl (80.0-96.0); RED BLOOD COUNT 2.82 10^6/uL (4.30-6.10); WHITE BLOOD COUNT 8.4 10^3/uL (4.0-10.0)
[2023-06-07 06:35] LABS: ALBUMIN 2.2 G/DL (3.2-5.2); ALKALINE PHOSPHATASE 109 U/L (46-116); ALT/SGPT 18 U/L (7.0-40); AST/SGOT 35 U/L (<34); BILIRUBIN,TOTAL < 0.2 MG/DL (0.3-1.2); BLOOD UREA NITROGEN 38 MG/DL (9-23); CALCIUM LEVEL 8.7 MG/DL (8.3-10.6); CARBON DIOXIDE LEVEL 28 MMOL/L (20-31); CHLORIDE LEVEL 100 MMOL/L (98-107); CREATININE FOR GFR 2.46 MG/DL (0.70-1.30); GLOMERULAR FILTRATION RATE 28.1 (>49); GLUCOSE, FASTING 116 MG/DL (74-106); POTASSIUM SERUM 3.9 MMOL/L (3.5-5.1); SODIUM LEVEL 139 MMOL/L (136-145); TOTAL PROTEIN 5.9 G/DL (5.7-8.2)
[2023-06-07 06:39] LABS: PLATELET COUNT, AUTOMATED 99 10^3/uL (150-450)
[2023-06-07] MEDS: FUROSEMIDE 40 MG TAB GT SCH ×2 (09:53→20:35)
[2023-06-07] MEDS: CYANOCOBALAMIN 500 MCG TAB GT SCH (09:54)
[2023-06-07] MEDS: DEXTROSE 50% 50ML SYRINGE IV PRN (12:09)
[2023-06-07 14:17] VITALS: BP 133/65; TEMP 97.7; O2SAT 94
[2023-06-07] MEDS: MIRALAX *UNIT DOSE* 17GM PACKET GT SCH (20:35)
[2023-06-07 21:30] VITALS: BP 132/89; TEMP 97.7; O2SAT 95
[2023-06-08] MEDS: GLUCOSE 4 GM CHEW PO PRN (01:11)
[2023-06-08 05:40] VITALS: BP 156/75; TEMP 98.1; O2SAT 94
[2023-06-08 06:14] LABS: HEMATOCRIT 25.2 % (42.0-52.0); HEMOGLOBIN 7.9 g/dl (13.5-17.5); MEAN CORPUSCULAR HGB CONC 31.3 g/dl (32.0-36.5); RED BLOOD COUNT 2.47 10^6/uL (4.30-6.10); WHITE BLOOD COUNT 7.7 10^3/uL (4.0-10.0)
[2023-06-08 06:16] LABS: PLATELET COUNT, AUTOMATED 80 10^3/uL (150-450)
[2023-06-08 06:46] LABS: ALBUMIN 1.9 G/DL (3.2-5.2); BILIRUBIN,TOTAL 0.2 MG/DL (0.3-1.2); CALCIUM LEVEL 8.1 MG/DL (8.3-10.6); GLOMERULAR FILTRATION RATE 22.3 (>49); POTASSIUM SERUM 3.9 MMOL/L (3.5-5.1); TOTAL PROTEIN 5.2 G/DL (5.7-8.2)
[2023-06-08 08:08] LABS: CORTISOL AM 5.4 UG/DL (4.3-22.4)
[2023-06-08] MEDS: D10W 1,000 ML IV SCH (11:28)
[2023-06-08] MEDS: [UNRECOGNIZED DRUG - OTHER] XX ONE (11:28)
[2023-06-08 12:44] LABS: ABG BASE EXCESS 0.4 (-2.0-2.0); ABG HCO3 26.1 MMOL/L (22.0-26.0); ABG O2 SATURATION 98.5 % (95.0-99.0); ABG PARTIAL PRESSURE CO2 47.4 mmHg (35.0-45.0); ABG PARTIAL PRESSURE O2 150.2 mmHg (75.0-100.0); ABG STANDARD HCO3 24.8 MMOL/L. (22.0-26.0); ABG TOTAL CO2 27.5 MMOL/L (23.0-31.0); ABG pH (ARTERIAL) 7.358 UNITS (7.350-7.450)
[2023-06-08 13:10] VITALS: BP 133/58; TEMP 96.5; O2SAT 97
[2023-06-08 15:46] VITALS: BP 144/70; TEMP 96.4; O2SAT 98
[2023-06-08 19:32] VITALS: BP 133/62; TEMP 97.2; O2SAT 97
[2023-06-08] MEDS: VALPROATE SOD IV SCH (21:09)
[2023-06-08] MEDS: D5W IV SCH (21:09)
[2023-06-08 23:18] VITALS: BP 138/70; TEMP 96.8; O2SAT 98
[2023-06-09] VITALS (21 sets, daily range): BP systolic 110–159; BP diastolic 53–80; TEMP 96.1–97.4; O2SAT 90–96
[2023-06-09] MEDS: COSYNTROPIN 0.25 MG/ML 1ML VIAL IV ONE (05:51)
[2023-06-09 06:16] LABS: HEMATOCRIT 23.2 % (42.0-52.0); HEMOGLOBIN 7.2 g/dl (13.5-17.5); MEAN CORPUSCULAR HEMOGLOBIN 31.9 pg (27.0-33.0); MEAN CORPUSCULAR VOLUME 102.7 fl (80.0-96.0); RED BLOOD COUNT 2.26 10^6/uL (4.30-6.10); WHITE BLOOD COUNT 3.4 10^3/uL (4.0-10.0)
[2023-06-09 06:31] LABS: PLATELET COUNT, AUTOMATED 64 10^3/uL (150-450)
[2023-06-09 06:47] LABS: ALBUMIN 1.6 G/DL (3.2-5.2); BILIRUBIN,TOTAL 0.2 MG/DL (0.3-1.2); CALCIUM LEVEL 7.4 MG/DL (8.3-10.6); CREATININE FOR GFR 2.87 MG/DL (0.70-1.30); GLOMERULAR FILTRATION RATE 23.5 (>49); POTASSIUM SERUM 3.8 MMOL/L (3.5-5.1); TOTAL PROTEIN 4.5 G/DL (5.7-8.2)
[2023-06-09] MEDS: FUROSEMIDE 100MG/10ML VIAL IV SCH (10:13)
[2023-06-09] MEDS: BISACODYL 10MG SUPP PR PRN (20:58)
[2023-06-09] MEDS: VALPROATE SOD IV SCH (20:59)
[2023-06-09] MEDS: D5W IV SCH (20:59)
[2023-06-09] MEDS: FLEET ENEMA PR PRN (21:00)
[2023-06-10] VITALS (18 sets, daily range): BP systolic 107–167; BP diastolic 62–88; TEMP 96.6–98.1; O2SAT 90–99
[2023-06-10 06:36] LABS: HEMATOCRIT 25.3 % (42.0-52.0); MEAN CORPUSCULAR HEMOGLOBIN 31.5 pg (27.0-33.0); MEAN CORPUSCULAR HGB CONC 31.6 g/dl (32.0-36.5); MEAN CORPUSCULAR VOLUME 99.6 fl (80.0-96.0); RED BLOOD COUNT 2.54 10^6/uL (4.30-6.10); WHITE BLOOD COUNT 14.3 10^3/uL (4.0-10.0)
[2023-06-10 06:39] LABS: PLATELET COUNT, AUTOMATED 80 10^3/uL (150-450)
[2023-06-10 07:11] LABS: BILIRUBIN,TOTAL 0.2 MG/DL (0.3-1.2); CALCIUM LEVEL 8.5 MG/DL (8.3-10.6); CREATININE FOR GFR 2.79 MG/DL (0.70-1.30); GLOMERULAR FILTRATION RATE 24.3 (>49); POTASSIUM SERUM 3.6 MMOL/L (3.5-5.1); TOTAL PROTEIN 5.5 G/DL (5.7-8.2)
[2023-06-10 10:34] LABS: PROCALCITONIN 0.37 ng/ml
[2023-06-10] MEDS: VALPROIC ACID 250MG/5ML SOL ORAL SYRINGE GT SCH (14:48)
[2023-06-11] VITALS (15 sets, daily range): BP systolic 124–154; BP diastolic 62–85; TEMP 96.7–97.4; O2SAT 90–97
[2023-06-11 06:07] LABS: HEMATOCRIT 24.8 % (42.0-52.0); HEMOGLOBIN 7.9 g/dl (13.5-17.5); MEAN CORPUSCULAR HEMOGLOBIN 32.4 pg (27.0-33.0); MEAN CORPUSCULAR HGB CONC 31.9 g/dl (32.0-36.5); MEAN CORPUSCULAR VOLUME 101.6 fl (80.0-96.0); RED BLOOD COUNT 2.44 10^6/uL (4.30-6.10); WHITE BLOOD COUNT 10.4 10^3/uL (4.0-10.0)
[2023-06-11 06:17] LABS: PLATELET COUNT, AUTOMATED 63 10^3/uL (150-450)
[2023-06-11 06:29] LABS: ALBUMIN 1.7 G/DL (3.2-5.2); BILIRUBIN,TOTAL 0.2 MG/DL (0.3-1.2); CALCIUM LEVEL 8.2 MG/DL (8.3-10.6); CREATININE FOR GFR 2.76 MG/DL (0.70-1.30); GLOMERULAR FILTRATION RATE 24.6 (>49); POTASSIUM SERUM 4.1 MMOL/L (3.5-5.1); TOTAL PROTEIN 4.8 G/DL (5.7-8.2)
[2023-06-11] MEDS: GLUCOSE 4 GM CHEW GT SCH (12:00)
[2023-06-11] MEDS: DEXTROSE 50% 50ML SYRINGE IV PRN (13:11)
[2023-06-11 16:12] LABS: INSULIN LEVEL 1.8 uIU/mL (2.6-24.9)
[2023-06-11] MEDS: SCOPOLAMINE 1MG TRANSDERMAL PATCH TOP PRN (21:17)
[2023-06-11] MEDS: ALBUTEROL SULFATE 2.5MG/0.5ML INH NEB SOLN NEB PRN (23:21)
[2023-06-12] VITALS (24 sets, daily range): BP systolic 138–160; BP diastolic 63–84; TEMP 96.3–96.8; O2SAT 92–98
[2023-06-12 06:30] LABS: BASO % 0.3 % (0.0-1.0); EOS # 0.1 10^3/uL (0.0-0.5); EOS % 1.9 % (0.0-3.0); HEMATOCRIT 23.9 % (42.0-52.0); HEMOGLOBIN 7.6 g/dl (13.5-17.5); LYMPH # 1.1 10^3/uL (1.5-5.0); MEAN CORPUSCULAR HEMOGLOBIN 32.2 pg (27.0-33.0); MEAN CORPUSCULAR HGB CONC 31.8 g/dl (32.0-36.5); MEAN CORPUSCULAR VOLUME 101.3 fl (80.0-96.0); MONO # 0.6 10^3/uL (0.0-0.8); MONO % 8.8 % (2.0-8.0); NEUTROPHILS # 4.3 10^3/uL (1.5-8.5); NEUTROPHILS % 68.6 % (36.0-66.0); RED BLOOD COUNT 2.36 10^6/uL (4.30-6.10); WHITE BLOOD COUNT 6.3 10^3/uL (4.0-10.0)
[2023-06-12 06:31] LABS: PLATELET COUNT, AUTOMATED 59 10^3/uL (150-450)
[2023-06-12 06:32] LABS: CALCIUM LEVEL 8.3 MG/DL (8.3-10.6); CREATININE FOR GFR 2.67 MG/DL (0.70-1.30); GLOMERULAR FILTRATION RATE 25.5 (>49); MAGNESIUM LEVEL 2.7 MG/DL (1.8-2.4); POTASSIUM SERUM 3.6 MMOL/L (3.5-5.1)
[2023-06-12] MEDS: FUROSEMIDE 40MG/4ML VIAL IV SCH (16:11)
[2023-06-13] VITALS (22 sets, daily range): BP systolic 124–167; BP diastolic 67–83; TEMP 96–97.5; O2SAT 93–98
[2023-06-13 06:22] LABS: BASO % 0.3 % (0.0-1.0); EOS # 0.1 10^3/uL (0.0-0.5); EOS % 1.6 % (0.0-3.0); HEMATOCRIT 25.1 % (42.0-52.0); LYMPH # 1.1 10^3/uL (1.5-5.0); LYMPH % 17.9 % (24.0-44.0); MEAN CORPUSCULAR HEMOGLOBIN 32.1 pg (27.0-33.0); MEAN CORPUSCULAR HGB CONC 31.9 g/dl (32.0-36.5); MEAN CORPUSCULAR VOLUME 100.8 fl (80.0-96.0); MONO # 0.4 10^3/uL (0.0-0.8); MONO % 6.9 % (2.0-8.0); NEUTROPHILS # 4.4 10^3/uL (1.5-8.5); NEUTROPHILS % 71.5 % (36.0-66.0); RED BLOOD COUNT 2.49 10^6/uL (4.30-6.10); WHITE BLOOD COUNT 6.1 10^3/uL (4.0-10.0)
[2023-06-13 06:31] LABS: PLATELET COUNT, AUTOMATED 61 10^3/uL (150-450)
[2023-06-13 06:39] LABS: CALCIUM LEVEL 8.3 MG/DL (8.3-10.6); CREATININE FOR GFR 2.5 MG/DL (0.70-1.30); GLOMERULAR FILTRATION RATE 27.6 (>49); MAGNESIUM LEVEL 2.9 MG/DL (1.8-2.4); POTASSIUM SERUM 3.6 MMOL/L (3.5-5.1)
[2023-06-13] MEDS: FUROSEMIDE 40 MG TAB GT SCH (16:00)
[2023-06-14 00:05] VITALS: BP 91/55; TEMP 97.7; O2SAT 95
[2023-06-14 00:24] VITALS: BP 123/60; TEMP 97; O2SAT 95
[2023-06-14 03:37] VITALS: BP 169/75; TEMP 97.2; O2SAT 92
[2023-06-14 06:37] LABS: BASO % 0.4 % (0.0-1.0); EOS # 0.1 10^3/uL (0.0-0.5); EOS % 1.5 % (0.0-3.0); HEMATOCRIT 24.7 % (42.0-52.0); HEMOGLOBIN 7.8 g/dl (13.5-17.5); LYMPH # 1.3 10^3/uL (1.5-5.0); LYMPH % 15.3 % (24.0-44.0); MEAN CORPUSCULAR HEMOGLOBIN 32.1 pg (27.0-33.0); MEAN CORPUSCULAR HGB CONC 31.6 g/dl (32.0-36.5); MEAN CORPUSCULAR VOLUME 101.6 fl (80.0-96.0); MONO # 0.7 10^3/uL (0.0-0.8); MONO % 8.2 % (2.0-8.0); NEUTROPHILS # 6.2 10^3/uL (1.5-8.5); NEUTROPHILS % 73.5 % (36.0-66.0); RED BLOOD COUNT 2.43 10^6/uL (4.30-6.10); WHITE BLOOD COUNT 8.4 10^3/uL (4.0-10.0)
[2023-06-14 06:38] LABS: PLATELET COUNT, AUTOMATED 65 10^3/uL (150-450)
[2023-06-14 07:18] LABS: CALCIUM LEVEL 8.3 MG/DL (8.3-10.6); CREATININE FOR GFR 2.42 MG/DL (0.70-1.30); GLOMERULAR FILTRATION RATE 28.6 (>49); MAGNESIUM LEVEL 2.9 MG/DL (1.8-2.4)
[2023-06-14 07:44] LABS: PERCENT SATURATION 43.2 % (19.7-50.0)
[2023-06-14 07:48] VITALS: BP 158/89; TEMP 96.7; O2SAT 93
[2023-06-14] MEDS: AUGMENTIN 875 MG TAB GT SCH (08:52)
[2023-06-14] MEDS: FUROSEMIDE 40MG/4ML VIAL IV ONE (11:38)
[2023-06-14] MEDS: GLUCOSE 4 GM CHEW GT SCH (12:29)
[2023-06-14] MEDS: FUROSEMIDE 40 MG TAB GT SCH (16:57)
[2023-06-14 17:12] VITALS: BP 136/67; TEMP 97.9; O2SAT 98
[2023-06-14 20:44] VITALS: BP 125/65; TEMP 97.9; O2SAT 97
[2023-06-15] VITALS (8 sets, daily range): BP systolic 126–166; BP diastolic 59–90; TEMP 97.9–98.2; O2SAT 91–99
[2023-06-15 06:37] LABS: BASO % 0.4 % (0.0-1.0); EOS # 0.1 10^3/uL (0.0-0.5); EOS % 1.8 % (0.0-3.0); HEMATOCRIT 23.9 % (42.0-52.0); HEMOGLOBIN 7.6 g/dl (13.5-17.5); LYMPH # 1.4 10^3/uL (1.5-5.0); LYMPH % 25.5 % (24.0-44.0); MEAN CORPUSCULAR HEMOGLOBIN 32.6 pg (27.0-33.0); MEAN CORPUSCULAR HGB CONC 31.8 g/dl (32.0-36.5); MEAN CORPUSCULAR VOLUME 102.6 fl (80.0-96.0); MONO # 0.7 10^3/uL (0.0-0.8); MONO % 12.8 % (2.0-8.0); NEUTROPHILS # 3.3 10^3/uL (1.5-8.5); NEUTROPHILS % 58.8 % (36.0-66.0); RED BLOOD COUNT 2.33 10^6/uL (4.30-6.10); WHITE BLOOD COUNT 5.5 10^3/uL (4.0-10.0)
[2023-06-15 06:38] LABS: PLATELET COUNT, AUTOMATED 65 10^3/uL (150-450)
[2023-06-15 07:06] LABS: CREATININE FOR GFR 2.51 MG/DL (0.70-1.30); GLOMERULAR FILTRATION RATE 27.4 (>49); MAGNESIUM LEVEL 2.8 MG/DL (1.8-2.4); POTASSIUM SERUM 4.5 MMOL/L (3.5-5.1)
[2023-06-15 11:20] LABS: ABG BASE EXCESS 6.4 (-2.0-2.0); ABG HCO3 30.9 MMOL/L (22.0-26.0); ABG O2 SATURATION 96.7 % (95.0-99.0); ABG PARTIAL PRESSURE CO2 44.3 mmHg (35.0-45.0); ABG PARTIAL PRESSURE O2 95.5 mmHg (75.0-100.0); ABG STANDARD HCO3 30.3 MMOL/L. (22.0-26.0); ABG TOTAL CO2 32.2 MMOL/L (23.0-31.0); ABG pH (ARTERIAL) 7.461 UNITS (7.350-7.450)
[2023-06-15 12:33] LABS: HEMATOCRIT 21.4 % (42.0-52.0); HEMOGLOBIN 6.8 g/dl (13.5-17.5)
[2023-06-15] MEDS: FUROSEMIDE 100MG/10ML VIAL IV SCH (16:23)
[2023-06-15 18:26] LABS: HEMATOCRIT 27.5 % (42.0-52.0); HEMOGLOBIN 8.7 g/dl (13.5-17.5)
[2023-06-16 05:49] VITALS: BP 159/88; TEMP 98.2; O2SAT 98
[2023-06-16 06:17] LABS: BASO % 0.4 % (0.0-1.0); EOS # 0.1 10^3/uL (0.0-0.5); EOS % 0.9 % (0.0-3.0); HEMATOCRIT 25.5 % (42.0-52.0); HEMOGLOBIN 8.1 g/dl (13.5-17.5); LYMPH # 1.6 10^3/uL (1.5-5.0); LYMPH % 23.6 % (24.0-44.0); MEAN CORPUSCULAR HEMOGLOBIN 31.4 pg (27.0-33.0); MEAN CORPUSCULAR HGB CONC 31.8 g/dl (32.0-36.5); MEAN CORPUSCULAR VOLUME 98.8 fl (80.0-96.0); MONO # 0.9 10^3/uL (0.0-0.8); NEUTROPHILS # 4.3 10^3/uL (1.5-8.5); NEUTROPHILS % 61.7 % (36.0-66.0); RED BLOOD COUNT 2.58 10^6/uL (4.30-6.10); WHITE BLOOD COUNT 6.9 10^3/uL (4.0-10.0)
[2023-06-16 06:25] LABS: PLATELET COUNT, AUTOMATED 71 10^3/uL (150-450)
[2023-06-16 06:40] LABS: CALCIUM LEVEL 7.9 MG/DL (8.3-10.6); CREATININE FOR GFR 2.45 MG/DL (0.70-1.30); GLOMERULAR FILTRATION RATE 28.2 (>49); MAGNESIUM LEVEL 2.8 MG/DL (1.8-2.4); POTASSIUM SERUM 4.6 MMOL/L (3.5-5.1)
[2023-06-16] MEDS ORDERED: acetaZOLAMIDE 250MG TAB PO ONE (09:00)
[2023-06-16] MEDS: acetaZOLAMIDE 250MG TAB GT ONE (10:10)
[2023-06-16 14:00] VITALS: BP 128/80; TEMP 97.7; O2SAT 96
[2023-06-16 20:30] VITALS: BP 109/71; TEMP 97.5; O2SAT 96
[2023-06-17 05:40] VITALS: BP 153/83; TEMP 97.5; O2SAT 96
[2023-06-17 07:21] LABS: BASO % 0.5 % (0.0-1.0); EOS # 0.1 10^3/uL (0.0-0.5); EOS % 1.9 % (0.0-3.0); HEMATOCRIT 24.6 % (42.0-52.0); HEMOGLOBIN 7.7 g/dl (13.5-17.5); LYMPH # 1.4 10^3/uL (1.5-5.0); LYMPH % 32.5 % (24.0-44.0); MEAN CORPUSCULAR HEMOGLOBIN 31.6 pg (27.0-33.0); MEAN CORPUSCULAR HGB CONC 31.3 g/dl (32.0-36.5); MEAN CORPUSCULAR VOLUME 100.8 fl (80.0-96.0); MONO # 0.6 10^3/uL (0.0-0.8); MONO % 15.1 % (2.0-8.0); NEUTROPHILS # 2.1 10^3/uL (1.5-8.5); NEUTROPHILS % 49.5 % (36.0-66.0); RED BLOOD COUNT 2.44 10^6/uL (4.30-6.10); WHITE BLOOD COUNT 4.3 10^3/uL (4.0-10.0)
[2023-06-17 07:31] LABS: CALCIUM LEVEL 8.3 MG/DL (8.3-10.6); CREATININE FOR GFR 2.44 MG/DL (0.70-1.30); GLOMERULAR FILTRATION RATE 28.3 (>49); POTASSIUM SERUM 4.5 MMOL/L (3.5-5.1)
[2023-06-17 07:33] LABS: PLATELET COUNT, AUTOMATED 85 10^3/uL (150-450)
[2023-06-17] MEDS: FUROSEMIDE 80 MG TAB PO SCH (10:13)
[2023-06-17 14:00] VITALS: BP 158/84; TEMP 97.5; O2SAT 96
[2023-06-17 21:00] VITALS: BP 116/54; TEMP 98.1; O2SAT 97
[2023-06-18 04:40] VITALS: BP 144/71; TEMP 97.7; O2SAT 98
[2023-06-18 06:21] LABS: BASO % 0.3 % (0.0-1.0); EOS # 0.1 10^3/uL (0.0-0.5); EOS % 0.6 % (0.0-3.0); HEMATOCRIT 27.1 % (42.0-52.0); HEMOGLOBIN 8.5 g/dl (13.5-17.5); LYMPH # 1.1 10^3/uL (1.5-5.0); LYMPH % 10.8 % (24.0-44.0); MEAN CORPUSCULAR HEMOGLOBIN 31.6 pg (27.0-33.0); MEAN CORPUSCULAR HGB CONC 31.4 g/dl (32.0-36.5); MEAN CORPUSCULAR VOLUME 100.7 fl (80.0-96.0); MONO # 0.9 10^3/uL (0.0-0.8); MONO % 8.7 % (2.0-8.0); NEUTROPHILS # 7.8 10^3/uL (1.5-8.5); NEUTROPHILS % 79.3 % (36.0-66.0); PLATELET COUNT, AUTOMATED 104 10^3/uL (150-450); RED BLOOD COUNT 2.69 10^6/uL (4.30-6.10); WHITE BLOOD COUNT 9.9 10^3/uL (4.0-10.0)
[2023-06-18 06:48] LABS: CALCIUM LEVEL 8.6 MG/DL (8.3-10.6); CREATININE FOR GFR 2.38 MG/DL (0.70-1.30); GLOMERULAR FILTRATION RATE 29.2 (>49); POTASSIUM SERUM 5.1 MMOL/L (3.5-5.1)
[2023-06-18] MEDS: PATIROMER SORBITEX CALCIUM 8.4 GM POWDER PACKET (VELTASSA) PO ONE (12:08)
[2023-06-18 14:30] VITALS: BP 137/72; TEMP 97.2; O2SAT 96
[2023-06-18 20:00] VITALS: BP 129/80; TEMP 97.9; O2SAT 94
[2023-06-19 06:00] VITALS: BP 143/83; TEMP 97.9; O2SAT 95
[2023-06-19 09:00] VITALS: BP 158/92; TEMP 97.9; O2SAT 98
[2023-06-19] MEDS: DARBEPOETIN 100MCG/0.5ML *NON-DIALYSIS* SYRINGE SC SCH (10:45)
[2023-06-19 14:00] VITALS: BP 134/76; TEMP 98.2; O2SAT 92
[2023-06-19 22:00] VITALS: BP 134/84; TEMP 98.8; O2SAT 98
[2023-06-20] VITALS (16 sets, daily range): BP systolic 80–150; BP diastolic 45–84; TEMP 98.5–101.5; O2SAT 93–96
[2023-06-20] MEDS ORDERED: LR 1,000 ML IV SCH (00:55)
[2023-06-20] MEDS ORDERED: ACETAMINOPHEN *IV* 1,000 MG in IV 1 EA IV ONE (00:55)
[2023-06-20] MEDS: ACETAMINOPHEN *IV* 1,000 MG in IV 1 EA IV STA (01:08)
[2023-06-20 01:09] LABS: ABG BASE EXCESS 6.7 (-2.0-2.0); ABG HCO3 30.6 MMOL/L (22.0-26.0); ABG O2 SATURATION 98.4 % (95.0-99.0); ABG PARTIAL PRESSURE CO2 40.8 mmHg (35.0-45.0); ABG PARTIAL PRESSURE O2 115.7 mmHg (75.0-100.0); ABG STANDARD HCO3 30.6 MMOL/L. (22.0-26.0); ABG TOTAL CO2 31.9 MMOL/L (23.0-31.0); ABG pH (ARTERIAL) 7.493 UNITS (7.350-7.450)
[2023-06-20] MEDS: LR 1,000 ML IV ONE (01:09)
[2023-06-20 01:40] LABS: BASO % 0.1 % (0.0-1.0); HEMATOCRIT 24.4 % (42.0-52.0); HEMOGLOBIN 7.7 g/dl (13.5-17.5); LYMPH # 0.6 10^3/uL (1.5-5.0); LYMPH % 2.7 % (24.0-44.0); MEAN CORPUSCULAR HGB CONC 31.6 g/dl (32.0-36.5); MEAN CORPUSCULAR VOLUME 101.2 fl (80.0-96.0); MONO # 1.3 10^3/uL (0.0-0.8); MONO % 6.3 % (2.0-8.0); NEUTROPHILS # 18.9 10^3/uL (1.5-8.5); PLATELET COUNT, AUTOMATED 160 10^3/uL (150-450); RED BLOOD COUNT 2.41 10^6/uL (4.30-6.10)
[2023-06-20] MEDS: PIPERACILLIN/TAZOBACTAM SOD 4.5 GM in D5W MINI-BAG PLUS 50 ML IV SCH (02:01)
[2023-06-20] MEDS: VANCOMYCIN HCL 1,000 MG, VIAL MATE ADAPTER 1 EACH in D5W 250 ML IV ONE (03:18)
[2023-06-20 06:49] LABS: ALBUMIN 1.6 G/DL (3.2-5.2); CREATININE FOR GFR 2.68 MG/DL (0.70-1.30); GLOMERULAR FILTRATION RATE 25.4 (>49); MAGNESIUM LEVEL 2.8 MG/DL (1.8-2.4); PHOSPHORUS LEVEL 3.4 MG/DL (2.4-5.1); POTASSIUM SERUM 5.3 MMOL/L (3.5-5.1)
[2023-06-20] MEDS: VANCOMYCIN HCL 1,000 MG, VIAL MATE ADAPTER 1 EACH in D5W 250 ML IV SCH (08:40)
[2023-06-20] MEDS: PIPERACILLIN/TAZOBACTAM SOD 3.375 GM in D5W MINI-BAG PLUS 50 ML IV SCH (10:50)
[2023-06-20] MEDS: PATIROMER SORBITEX CALCIUM 8.4 GM POWDER PACKET (VELTASSA) PO SCH (10:52)
[2023-06-21] VITALS (16 sets, daily range): BP systolic 112–204; BP diastolic 57–118; TEMP 97.7–98.9; O2SAT 94–96
[2023-06-21 07:48] LABS: BASO % 0.2 % (0.0-1.0); EOS # 0.1 10^3/uL (0.0-0.5); EOS % 0.6 % (0.0-3.0); LYMPH # 1.1 10^3/uL (1.5-5.0); MEAN CORPUSCULAR HEMOGLOBIN 31.3 pg (27.0-33.0); MEAN CORPUSCULAR HGB CONC 31.2 g/dl (32.0-36.5); MEAN CORPUSCULAR VOLUME 100.5 fl (80.0-96.0); MONO # 0.9 10^3/uL (0.0-0.8); MONO % 7.6 % (2.0-8.0); NEUTROPHILS # 9.7 10^3/uL (1.5-8.5); NEUTROPHILS % 82.3 % (36.0-66.0); PLATELET COUNT, AUTOMATED 191 10^3/uL (150-450); RED BLOOD COUNT 1.98 10^6/uL (4.30-6.10); WHITE BLOOD COUNT 11.7 10^3/uL (4.0-10.0)
[2023-06-21 07:59] LABS: HEMATOCRIT 19.9 % (42.0-52.0); HEMOGLOBIN 6.2 g/dl (13.5-17.5)
[2023-06-21 08:06] LABS: CREATININE FOR GFR 2.77 MG/DL (0.70-1.30); GLOMERULAR FILTRATION RATE 24.5 (>49)
[2023-06-21] MEDS ORDERED: FUROSEMIDE 40MG/4ML VIAL IV ONE (08:40)
[2023-06-21] MEDS: VANCOMYCIN HCL 500 MG in D5W MINI-BAG PLUS 100 ML IV SCH (13:22)
[2023-06-21] MEDS: FUROSEMIDE 40MG/4ML VIAL IV ONE (14:03)
[2023-06-21] MEDS ORDERED: PILL CUTTER 1 EACH XX PRN (21:20)
[2023-06-21] MEDS ORDERED: **hydrALAZINE HCL** 25 MG TAB PO ONE (22:00)
[2023-06-21] MEDS: GLUCOSE 4 GM CHEW GT SCH (22:11)
[2023-06-21] MEDS: **hydrALAZINE HCL** 25 MG TAB GT ONE (22:11)
[2023-06-22] VITALS (16 sets, daily range): BP systolic 131–240; BP diastolic 65–120; TEMP 97.2–97.9; O2SAT 94–99
[2023-06-22] MEDS ORDERED: LABETALOL 100MG/20ML VIAL IV STA ×2 (00:23→00:32)
[2023-06-22 05:24] LABS: BASO % 0.3 % (0.0-1.0); EOS # 0.1 10^3/uL (0.0-0.5); EOS % 1.2 % (0.0-3.0); HEMATOCRIT 24.9 % (42.0-52.0); HEMOGLOBIN 8.1 g/dl (13.5-17.5); LYMPH # 1.2 10^3/uL (1.5-5.0); LYMPH % 14.3 % (24.0-44.0); MEAN CORPUSCULAR HEMOGLOBIN 30.3 pg (27.0-33.0); MEAN CORPUSCULAR HGB CONC 32.5 g/dl (32.0-36.5); MEAN CORPUSCULAR VOLUME 93.3 fl (80.0-96.0); MONO # 1.5 10^3/uL (0.0-0.8); MONO % 16.7 % (2.0-8.0); NEUTROPHILS # 5.8 10^3/uL (1.5-8.5); NEUTROPHILS % 66.8 % (36.0-66.0); PLATELET COUNT, AUTOMATED 255 10^3/uL (150-450); RED BLOOD COUNT 2.67 10^6/uL (4.30-6.10); WHITE BLOOD COUNT 8.7 10^3/uL (4.0-10.0)
[2023-06-22 05:48] LABS: CALCIUM LEVEL 8.3 MG/DL (8.3-10.6); CREATININE FOR GFR 2.74 MG/DL (0.70-1.30); GLOMERULAR FILTRATION RATE 24.8 (>49); POTASSIUM SERUM 4.7 MMOL/L (3.5-5.1)
[2023-06-22 10:05] LABS: PROCALCITONIN 1.27 ng/ml
[2023-06-22] MEDS: FUROSEMIDE 40MG/4ML VIAL IV SCH (15:36)
[2023-06-23 04:18] VITALS: BP 156/75; TEMP 98.2; O2SAT 98
[2023-06-23 05:43] LABS: BASO % 0.6 % (0.0-1.0); EOS # 0.1 10^3/uL (0.0-0.5); EOS % 2.1 % (0.0-3.0); HEMATOCRIT 24.5 % (42.0-52.0); LYMPH # 1.3 10^3/uL (1.5-5.0); LYMPH % 19.3 % (24.0-44.0); MEAN CORPUSCULAR HEMOGLOBIN 30.5 pg (27.0-33.0); MEAN CORPUSCULAR HGB CONC 32.7 g/dl (32.0-36.5); MEAN CORPUSCULAR VOLUME 93.5 fl (80.0-96.0); MONO # 1.2 10^3/uL (0.0-0.8); MONO % 18.4 % (2.0-8.0); NEUTROPHILS % 58.7 % (36.0-66.0); PLATELET COUNT, AUTOMATED 319 10^3/uL (150-450); RED BLOOD COUNT 2.62 10^6/uL (4.30-6.10); WHITE BLOOD COUNT 6.7 10^3/uL (4.0-10.0)
[2023-06-23 05:58] LABS: CALCIUM LEVEL 8.3 MG/DL (8.3-10.6); CREATININE FOR GFR 2.77 MG/DL (0.70-1.30); GLOMERULAR FILTRATION RATE 24.5 (>49); POTASSIUM SERUM 4.6 MMOL/L (3.5-5.1)
[2023-06-23 07:32] VITALS: BP 158/86; TEMP 97.8; O2SAT 97
[2023-06-23 15:52] VITALS: BP 152/76; TEMP 97.6; O2SAT 94
[2023-06-23 19:04] VITALS: BP 166/89; TEMP 97.7; O2SAT 97
[2023-06-23] MEDS: AUGMENTIN BID 400MG/5ML SUSP 50ML BTL GT SCH (22:10)
[2023-06-24] VITALS (9 sets, daily range): BP systolic 107–170; BP diastolic 55–127; TEMP 98.1–99.3; O2SAT 94–96
[2023-06-24 07:47] LABS: BASO # 0.1 10^3/uL (0.0-0.2); BASO % 0.9 % (0.0-1.0); EOS # 0.2 10^3/uL (0.0-0.5); EOS % 2.8 % (0.0-3.0); HEMATOCRIT 26.8 % (42.0-52.0); HEMOGLOBIN 8.6 g/dl (13.5-17.5); LYMPH # 1.6 10^3/uL (1.5-5.0); LYMPH % 28.3 % (24.0-44.0); MEAN CORPUSCULAR HEMOGLOBIN 30.7 pg (27.0-33.0); MEAN CORPUSCULAR HGB CONC 32.1 g/dl (32.0-36.5); MEAN CORPUSCULAR VOLUME 95.7 fl (80.0-96.0); MONO # 0.9 10^3/uL (0.0-0.8); MONO % 16.2 % (2.0-8.0); NEUTROPHILS # 2.9 10^3/uL (1.5-8.5); NEUTROPHILS % 49.7 % (36.0-66.0); PLATELET COUNT, AUTOMATED 416 10^3/uL (150-450); WHITE BLOOD COUNT 5.8 10^3/uL (4.0-10.0)
[2023-06-24 08:16] LABS: CALCIUM LEVEL 8.2 MG/DL (8.3-10.6); CREATININE FOR GFR 2.79 MG/DL (0.70-1.30); GLOMERULAR FILTRATION RATE 24.3 (>49); POTASSIUM SERUM 4.9 MMOL/L (3.5-5.1)
[2023-06-24] MEDS: FUROSEMIDE 40MG/4ML VIAL IV SCH (08:22)
[2023-06-24 11:28] LABS: PERCENT SATURATION 19.3 % (19.7-50.0)
[2023-06-24 11:30] LABS: FERRITIN 239.7 NG/ML (10.5-307.3)
[2023-06-25 05:20] VITALS: BP 168/88; TEMP 98.8; O2SAT 96
[2023-06-25 06:42] LABS: BASO # 0.1 10^3/uL (0.0-0.2); BASO % 1.5 % (0.0-1.0); EOS # 0.1 10^3/uL (0.0-0.5); EOS % 2.3 % (0.0-3.0); HEMATOCRIT 30.2 % (42.0-52.0); HEMOGLOBIN 9.8 g/dl (13.5-17.5); LYMPH # 1.9 10^3/uL (1.5-5.0); LYMPH % 32.1 % (24.0-44.0); MEAN CORPUSCULAR HEMOGLOBIN 30.7 pg (27.0-33.0); MEAN CORPUSCULAR HGB CONC 32.5 g/dl (32.0-36.5); MEAN CORPUSCULAR VOLUME 94.7 fl (80.0-96.0); MONO # 1.1 10^3/uL (0.0-0.8); MONO % 18.7 % (2.0-8.0); NEUTROPHILS # 2.6 10^3/uL (1.5-8.5); NEUTROPHILS % 43.1 % (36.0-66.0); PLATELET COUNT, AUTOMATED 445 10^3/uL (150-450); RED BLOOD COUNT 3.19 10^6/uL (4.30-6.10)
[2023-06-25 07:01] LABS: CALCIUM LEVEL 7.9 MG/DL (8.3-10.6); CREATININE FOR GFR 2.87 MG/DL (0.70-1.30); GLOMERULAR FILTRATION RATE 23.5 (>49); POTASSIUM SERUM 4.7 MMOL/L (3.5-5.1)
[2023-06-25] MEDS: FUROSEMIDE 40 MG TAB PO SCH (08:09)
[2023-06-25 14:00] VITALS: BP 166/106; TEMP 98.8; O2SAT 95
[2023-06-25 21:51] VITALS: BP 176/108; TEMP 98; O2SAT 99
[2023-06-26 06:00] VITALS: BP 167/87; TEMP 98.2; O2SAT 94
[2023-06-26 06:59] LABS: BASO # 0.1 10^3/uL (0.0-0.2); BASO % 0.9 % (0.0-1.0); EOS # 0.1 10^3/uL (0.0-0.5); EOS % 0.9 % (0.0-3.0); HEMATOCRIT 32.7 % (42.0-52.0); HEMOGLOBIN 10.6 g/dl (13.5-17.5); LYMPH # 1.9 10^3/uL (1.5-5.0); LYMPH % 23.1 % (24.0-44.0); MEAN CORPUSCULAR HEMOGLOBIN 31.5 pg (27.0-33.0); MEAN CORPUSCULAR HGB CONC 32.4 g/dl (32.0-36.5); MONO # 1.3 10^3/uL (0.0-0.8); MONO % 15.9 % (2.0-8.0); NEUTROPHILS # 4.7 10^3/uL (1.5-8.5); NEUTROPHILS % 57.7 % (36.0-66.0); PLATELET COUNT, AUTOMATED 494 10^3/uL (150-450); RED BLOOD COUNT 3.37 10^6/uL (4.30-6.10); WHITE BLOOD COUNT 8.1 10^3/uL (4.0-10.0)
[2023-06-26 07:25] LABS: CALCIUM LEVEL 8.3 MG/DL (8.3-10.6); CREATININE FOR GFR 2.92 MG/DL (0.70-1.30); POTASSIUM SERUM 4.9 MMOL/L (3.5-5.1)
[2023-06-26] MEDS ORDERED: DARB10SYRN SC (12:44)
[2023-06-26] MEDS ORDERED: FURO10EL GT (12:44)
[2023-06-26 13:58] VITALS: BP 152/98
[2023-06-26] MEDS: **hydrALAZINE** 50 MG TAB GT SCH (13:58)
[2023-06-26 14:00] VITALS: BP 152/98; TEMP 98.8; O2SAT 96
[2023-06-26] MEDS ORDERED: DEX44CHW2 GT (18:26)
== END 2023-06-26 14:57 | disposition home or self-care (01) | DRG 177 ==
LOC: EDBD 14:54 → M ED 14:54 → M ED INP 17:44 → ENRESERV 19:41 → M MSPAV 20:31 → M PCU 06-08 13:06 → M MSPAV 06-14 17:33 → M PCU 06-20 02:27 → M MSPAV 06-21 18:15 → M PCU 06-22 00:58 → M MSPAV 06-24 02:33
PROVIDERS: ADMIT Internal Medicine; ATTEND Internal Medicine Nephrology
PROC: 30233N1 Transfusion of Nonautologous Red Blood Cells into Peripheral Vein, Percutaneous Approach (ICD-10-PCS; principal; 2023-06-15)
DX: J69.0 Pneumonitis due to inhalation of food and vomit (principal); G93.41 Metabolic encephalopathy; A41.9 Sepsis, unspecified organism; G80.1 Spastic diplegic cerebral palsy; N18.4 Chronic kidney disease, stage 4 (severe); I50.32 Chronic diastolic (congestive) heart failure; I13.0 Hypertensive heart and chronic kidney disease with heart failure and stage 1 through stage 4 chronic kidney disease, or unspecified chronic kidney disease; N17.9 Acute kidney failure, unspecified; N04.9 Nephrotic syndrome with unspecified morphologic changes; E46 Unspecified protein-calorie malnutrition; E87.3 Alkalosis; F72 Severe intellectual disabilities; H91.90 Unspecified hearing loss, unspecified ear; F29 Unspecified psychosis not due to a substance or known physiological condition; D46.9 Myelodysplastic syndrome, unspecified; K21.9 Gastro-esophageal reflux disease without esophagitis; L21.9 Seborrheic dermatitis, unspecified; N40.0 Benign prostatic hyperplasia without lower urinary tract symptoms; R13.19 Other dysphagia; I44.1 Atrioventricular block, second degree; F32.A Depression, unspecified; F63.81 Intermittent explosive disorder; E16.2 Hypoglycemia, unspecified; G47.33 Obstructive sleep apnea (adult) (pediatric); D69.6 Thrombocytopenia, unspecified; J15.69 Pneumonia due to other Gram-negative bacteria; D63.1 Anemia in chronic kidney disease; Z93.1 Gastrostomy status; Z98.49 Cataract extraction status, unspecified eye; Z79.899 Other long term (current) drug therapy; Z88.6 Allergy status to analgesic agent

== ENCOUNTER → 2023-07-24 | Outpatient (CLI) | payer MEDICARE, MEDICAID ==
[~2023-07-24] MED LIST changes: +DARB10SYRN SC; +DEX44CHW2 GT; +ESOM1CAP20 PO; -ESOM1CAP5 PO; +HYDR100T PO
[2023-07-24 15:19] LABS: BASO % 0.3 % (0.0-1.0); EOS # 0.2 10^3/uL (0.0-0.5); EOS % 1.9 % (0.0-3.0); HEMATOCRIT 37.2 % (42.0-52.0); HEMOGLOBIN 11.7 g/dl (13.5-17.5); LYMPH # 1.5 10^3/uL (1.5-5.0); LYMPH % 12.7 % (24.0-44.0); MEAN CORPUSCULAR HGB CONC 31.5 g/dl (32.0-36.5); MEAN CORPUSCULAR VOLUME 101.6 fl (80.0-96.0); MONO # 1.1 10^3/uL (0.0-0.8); MONO % 8.9 % (2.0-8.0); NEUTROPHILS % 75.8 % (36.0-66.0); PLATELET COUNT, AUTOMATED 116 10^3/uL (150-450); RED BLOOD COUNT 3.66 10^6/uL (4.30-6.10); WHITE BLOOD COUNT 11.9 10^3/uL (4.0-10.0)
[2023-07-24 15:47] LABS: ALBUMIN 2.7 G/DL (3.2-5.2); BILIRUBIN,TOTAL 0.2 MG/DL (0.3-1.2); CALCIUM LEVEL 9.1 MG/DL (8.3-10.6); CREATININE FOR GFR 2.26 MG/DL (0.70-1.30); POTASSIUM SERUM 5.4 MMOL/L (3.5-5.1); TOTAL PROTEIN 6.8 G/DL (5.7-8.2)
== END ==
LOC: M WUC 10:46
PROVIDERS: ATTEND Internal Medicine
DX: D64.9 Anemia, unspecified (principal); J18.9 Pneumonia, unspecified organism; I51.7 Cardiomegaly; I70.0 Atherosclerosis of aorta; E83.41 Hypermagnesemia

== ENCOUNTER → 2023-07-24 | Outpatient (CLI) | payer MEDICARE, MEDICAID | LOC: M WUC 10:45 | PROVIDERS: ATTEND Nurse Practitioner Family | DX: E83.41 Hypermagnesemia (principal) ==

== ENCOUNTER 2023-08-04 11:28 | Inpatient (IN) | payer MEDICAID, MEDICARE ==
[~2023-08-04] VITALS: Ht 188 cm; Wt 82.9 kg
[2023-08-04 12:38] LABS: VENOUS BASE EXCESS 5.1 (-2.0-2.0); VENOUS HCO3 31.3 MMOL/L (23.0-27.0); VENOUS PARTIAL PRESSURE CO2 53.6 mmHg (38.0-50.0); VENOUS PARTIAL PRESSURE O2 78.2 mmHg (30.0-50.0); VENOUS PH 7.384 UNITS (7.330-7.430); VENOUS TOTAL CO2 32.9 MMOL/L (24.0-28.0)
[2023-08-04 12:41] LABS: BASO % 0.2 % (0.0-1.0); EOS # 0.1 10^3/uL (0.0-0.5); EOS % 0.9 % (0.0-3.0); HEMATOCRIT 33.4 % (42.0-52.0); HEMOGLOBIN 10.8 g/dl (13.5-17.5); LYMPH # 1.4 10^3/uL (1.5-5.0); LYMPH % 11.8 % (24.0-44.0); MEAN CORPUSCULAR HEMOGLOBIN 31.8 pg (27.0-33.0); MEAN CORPUSCULAR HGB CONC 32.3 g/dl (32.0-36.5); MEAN CORPUSCULAR VOLUME 98.2 fl (80.0-96.0); MONO # 1.3 10^3/uL (0.0-0.8); MONO % 11.2 % (2.0-8.0); NEUTROPHILS # 8.6 10^3/uL (1.5-8.5); NEUTROPHILS % 75.5 % (36.0-66.0); PLATELET COUNT, AUTOMATED 144 10^3/uL (150-450); WHITE BLOOD COUNT 11.4 10^3/uL (4.0-10.0)
[2023-08-04 13:12] LABS: ALBUMIN 2.7 G/DL (3.2-5.2); BILIRUBIN,DIRECT 0.1 MG/DL (<0.4); BILIRUBIN,TOTAL 0.2 MG/DL (0.3-1.2); CALCIUM LEVEL 8.7 MG/DL (8.3-10.6); CREATININE FOR GFR 2.37 MG/DL (0.70-1.30); GLOMERULAR FILTRATION RATE 29.3 (>49); POTASSIUM SERUM 4.9 MMOL/L (3.5-5.1); TOTAL PROTEIN 6.8 G/DL (5.7-8.2)
[2023-08-04 13:13] LABS: THYROID STIMULATING HORMONE 5.362 uIU/ML (0.55-4.78)
[2023-08-04] MEDS ORDERED: VELT1POW GT (13:44)
[2023-08-04] MEDS ORDERED: DEX44CHW2 GT (13:44)
[2023-08-04] MEDS ORDERED: DOCU5LIQ GT (13:44)
[2023-08-04] MEDS ORDERED: GUAI100L6 PO (13:44)
[2023-08-04] MEDS ORDERED: VALP250S GT (13:44)
[2023-08-04] MEDS ORDERED: FURO10EL GT (13:44)
[2023-08-04] MEDS ORDERED: HOME MED LIST COMPLETE! XX SCH (13:45)
[2023-08-04 14:46] LABS: PROCALCITONIN 0.14 ng/ml
[2023-08-04] MEDS: **hydrALAZINE** 50 MG TAB PO SCH (16:00)
[2023-08-04 16:18] LABS: FREE T3 2.3 PG/ML (2.3-4.2); FREE T4 1.17 NG/DL (0.89-1.76)
[2023-08-04] MEDS: PIPERACILLIN/TAZOBACTAM SOD 3.375 GM in D5W MINI-BAG PLUS 50 ML IV SCH (16:41)
[2023-08-04] MEDS ORDERED: BISACODYL 10MG SUPP PR PRN (16:50)
[2023-08-04] MEDS: DEXTROSE 50% 50ML SYRINGE IV STA (17:34)
[2023-08-04] MEDS: SODIUM CHLORIDE 0.9% 1000ML IV ONE (17:34)
[2023-08-04 17:36] LABS: CORTISOL BASELINE 20.7 UG/DL (4.3-22.4)
[2023-08-04 17:39] LABS: THYROID STIMULATING HORMONE 5.374 uIU/ML (0.55-4.78)
[2023-08-04 17:43] LABS: FREE T4 1.04 NG/DL (0.89-1.76)
[2023-08-04 17:45] LABS: FREE T3 2.3 PG/ML (2.3-4.2)
[2023-08-04] MEDS: NS 1,000 ML IV SCH (22:20)
[2023-08-04] MEDS: MIRALAX *UNIT DOSE* 17GM PACKET GT SCH (22:23)
[2023-08-04] MEDS: VALPROIC ACID 250MG/5ML SOL ORAL SYRINGE GT SCH (22:28)
[2023-08-04] MEDS: DOCUSATE SOD LIQ 100MG/10ML UDC GT SCH (22:28)
[2023-08-04] MEDS: SENNA SYRUP 5ML UDC GT SCH (22:29)
[2023-08-04] MEDS: FAMOTIDINE 40MG/5ML ORAL SUSPENSON 50ML BOTTLE GT SCH (22:29)
[2023-08-04] MEDS: ASENAPINE 5MG SUBLINGUAL TAB (SAPHRIS) SL SCH (22:30)
[2023-08-04] MEDS: HEPARIN SOD (PORCINE) 5000UNITS/ML 1ML VIAL/SYRINGE SQ SCH (22:45)
[2023-08-05] VITALS (8 sets, daily range): BP systolic 122–178; BP diastolic 68–93; TEMP 96.4–98.4; O2SAT 92–98
[2023-08-05 06:08] LABS: BASO % 0.1 % (0.0-1.0); EOS # 0.1 10^3/uL (0.0-0.5); EOS % 0.7 % (0.0-3.0); HEMATOCRIT 30.8 % (42.0-52.0); LYMPH # 1.7 10^3/uL (1.5-5.0); LYMPH % 19.5 % (24.0-44.0); MEAN CORPUSCULAR HEMOGLOBIN 32.2 pg (27.0-33.0); MEAN CORPUSCULAR HGB CONC 32.5 g/dl (32.0-36.5); MONO # 1.1 10^3/uL (0.0-0.8); MONO % 12.6 % (2.0-8.0); NEUTROPHILS # 5.8 10^3/uL (1.5-8.5); NEUTROPHILS % 66.6 % (36.0-66.0); PLATELET COUNT, AUTOMATED 132 10^3/uL (150-450); RED BLOOD COUNT 3.11 10^6/uL (4.30-6.10); WHITE BLOOD COUNT 8.7 10^3/uL (4.0-10.0)
[2023-08-05 06:29] LABS: CALCIUM LEVEL 8.6 MG/DL (8.3-10.6); CREATININE FOR GFR 2.61 MG/DL (0.70-1.30); GLOMERULAR FILTRATION RATE 26.2 (>49); POTASSIUM SERUM 5.1 MMOL/L (3.5-5.1)
[2023-08-05] MEDS: CYANOCOBALAMIN 500 MCG TAB GT SCH (10:39)
[2023-08-05] MEDS: **hydrALAZINE** 50 MG TAB PEG SCH (10:41)
[2023-08-05] MEDS ORDERED: DOXYCYCLINE HYCLATE 100 MG in D5W MINI-BAG PLUS 100 ML IV SCH (10:55)
[2023-08-05] MEDS: VALPROIC ACID 500MG/10ML SOL ORAL SYRINGE GT SCH (11:43)
[2023-08-05] MEDS: DOXYCYCLINE HYCLATE 100MG TABLET GT SCH (11:45)
[2023-08-05] MEDS: PATIROMER SORBITEX CALCIUM 8.4 GM POWDER PACKET (VELTASSA) PO SCH (13:34)
[2023-08-06] VITALS (12 sets, daily range): BP systolic 108–172; BP diastolic 52–98; TEMP 96.3–97.2; O2SAT 94–99
[2023-08-06 06:31] LABS: BASO % 0.2 % (0.0-1.0); EOS # 0.1 10^3/uL (0.0-0.5); EOS % 0.6 % (0.0-3.0); HEMATOCRIT 30.2 % (42.0-52.0); HEMOGLOBIN 9.8 g/dl (13.5-17.5); LYMPH # 1.7 10^3/uL (1.5-5.0); LYMPH % 13.9 % (24.0-44.0); MEAN CORPUSCULAR HEMOGLOBIN 32.1 pg (27.0-33.0); MEAN CORPUSCULAR HGB CONC 32.5 g/dl (32.0-36.5); MONO # 1.8 10^3/uL (0.0-0.8); MONO % 14.6 % (2.0-8.0); NEUTROPHILS # 8.8 10^3/uL (1.5-8.5); NEUTROPHILS % 70.2 % (36.0-66.0); PLATELET COUNT, AUTOMATED 121 10^3/uL (150-450); RED BLOOD COUNT 3.05 10^6/uL (4.30-6.10); WHITE BLOOD COUNT 12.5 10^3/uL (4.0-10.0)
[2023-08-06 06:47] LABS: CALCIUM LEVEL 8.9 MG/DL (8.3-10.6); CREATININE FOR GFR 2.8 MG/DL (0.70-1.30); GLOMERULAR FILTRATION RATE 24.2 (>49); MAGNESIUM LEVEL 3.5 MG/DL (1.8-2.4); POTASSIUM SERUM 5.3 MMOL/L (3.5-5.1)
[2023-08-06 08:09] LABS: PROCALCITONIN 0.17 ng/ml
[2023-08-06] MEDS: D5W/0.45% SODIUM CHLORIDE 1,000 ML IV SCH (11:26)
[2023-08-06] MEDS: LABETALOL 100MG/20ML VIAL IV PRN (11:55)
[2023-08-06] MEDS: ALBUTEROL SULFATE 2.5MG/0.5ML INH NEB SOLN NEB ONE (12:50)
[2023-08-06] MEDS: DOXYCYCLINE HYCLATE 100 MG in D5W MINI-BAG PLUS 100 ML IV SCH (13:04)
[2023-08-06] MEDS: VALPROATE SOD INJ 500 MG in D5W MINI-BAG PLUS 50 ML IV SCH (14:22)
[2023-08-07] VITALS (7 sets, daily range): BP systolic 125–166; BP diastolic 67–88; TEMP 96.3–100.4; O2SAT 92–95
[2023-08-07] MEDS: D5W/0.45% SODIUM CHLORIDE 1,000 ML IV SCH ×2 (00:13→16:49)
[2023-08-07 05:45] LABS: BASO % 0.3 % (0.0-1.0); EOS # 0.1 10^3/uL (0.0-0.5); EOS % 1.3 % (0.0-3.0); HEMATOCRIT 28.8 % (42.0-52.0); HEMOGLOBIN 9.1 g/dl (13.5-17.5); LYMPH # 1.8 10^3/uL (1.5-5.0); LYMPH % 22.9 % (24.0-44.0); MEAN CORPUSCULAR HEMOGLOBIN 31.9 pg (27.0-33.0); MEAN CORPUSCULAR HGB CONC 31.6 g/dl (32.0-36.5); MEAN CORPUSCULAR VOLUME 101.1 fl (80.0-96.0); MONO # 1.3 10^3/uL (0.0-0.8); NEUTROPHILS # 4.7 10^3/uL (1.5-8.5); NEUTROPHILS % 59.1 % (36.0-66.0); PLATELET COUNT, AUTOMATED 103 10^3/uL (150-450); RED BLOOD COUNT 2.85 10^6/uL (4.30-6.10)
[2023-08-07 06:04] LABS: CALCIUM LEVEL 8.6 MG/DL (8.3-10.6); CREATININE FOR GFR 2.75 MG/DL (0.70-1.30); GLOMERULAR FILTRATION RATE 24.7 (>49); POTASSIUM SERUM 4.9 MMOL/L (3.5-5.1)
[2023-08-07] MEDS: DOXYCYCLINE HYCLATE 100MG TABLET PEG SCH (11:08)
[2023-08-07] MEDS ORDERED: DOXYCYCLINE HYCLATE 100MG TABLET PEG SCH (12:00)
[2023-08-07] MEDS: SCOPOLAMINE 1MG TRANSDERMAL PATCH TOP PRN (13:08)
[2023-08-07] MEDS: VALPROIC ACID 500MG/10ML SOL ORAL SYRINGE PEG SCH (14:27)
[2023-08-07] MEDS: NEOSPORIN TOP OINT 15GM TOP SCH (14:49)
[2023-08-07] MEDS: GASTROGRAFIN SOLUTION 30ML PO SCH (15:45)
[2023-08-07] MEDS: PIPERACILLIN/TAZOBACTAM SOD 3.375 GM in D5W MINI-BAG PLUS 50 ML IV SCH (16:45)
[2023-08-07] MEDS: ACETAMINOPHEN TAB 650MG DOSE (2X325MG) GT PRN (16:48)
[2023-08-07] MEDS: LEVALBUTEROL 1.25MG 0.5ML CONCENTRATE NEB INH SCH (20:23)
[2023-08-07] MEDS ORDERED: AUGMENTIN 500MG TAB PEG SCH (21:00)
[2023-08-07] MEDS: BISACODYL 10MG SUPP PR SCH (21:20)
[2023-08-08] VITALS (8 sets, daily range): BP systolic 102–150; BP diastolic 56–79; TEMP 97.2–99.1; O2SAT 91–96
[2023-08-08 06:38] LABS: HEMATOCRIT 25.6 % (42.0-52.0); HEMOGLOBIN 8.2 g/dl (13.5-17.5); MEAN CORPUSCULAR HEMOGLOBIN 32.2 pg (27.0-33.0); MEAN CORPUSCULAR VOLUME 100.4 fl (80.0-96.0); PLATELET COUNT, AUTOMATED 101 10^3/uL (150-450); RED BLOOD COUNT 2.55 10^6/uL (4.30-6.10)
[2023-08-08] MEDS: guaiFENesin SYRUP 200MG 10ML UDC PO PRN (06:50)
[2023-08-08 06:54] LABS: WHITE BLOOD COUNT 27.9 10^3/uL (4.0-10.0)
[2023-08-08 07:06] LABS: CALCIUM LEVEL 8.7 MG/DL (8.3-10.6); CREATININE FOR GFR 3.23 MG/DL (0.70-1.30); GLOMERULAR FILTRATION RATE 20.5 (>49); POTASSIUM SERUM 3.9 MMOL/L (3.5-5.1)
[2023-08-08 07:33] LABS: ANISOCYTOSIS 1+; LYMPHOCYTES 7 % (16-44); METAMYELOCYTES 2 % (0-0); MONOCYTES 3 % (0-5); NEUTROPHILS 69 % (28-66)
[2023-08-08 07:37] LABS: HYPOCHROMASIA 1+
[2023-08-08 07:38] LABS: PLATELET ESTIMATE DECREASED (NORMAL)
[2023-08-09] VITALS (10 sets, daily range): BP systolic 100–170; BP diastolic 52–94; TEMP 97.2–99.6; O2SAT 64–98
[2023-08-09 07:22] LABS: BASO % 0.1 % (0.0-1.0); HEMATOCRIT 26.6 % (42.0-52.0); HEMOGLOBIN 8.7 g/dl (13.5-17.5); LYMPH # 1.4 10^3/uL (1.5-5.0); LYMPH % 6.1 % (24.0-44.0); MEAN CORPUSCULAR HEMOGLOBIN 32.2 pg (27.0-33.0); MEAN CORPUSCULAR HGB CONC 32.7 g/dl (32.0-36.5); MEAN CORPUSCULAR VOLUME 98.5 fl (80.0-96.0); MONO # 1.5 10^3/uL (0.0-0.8); MONO % 6.2 % (2.0-8.0); NEUTROPHILS # 20.3 10^3/uL (1.5-8.5); NEUTROPHILS % 86.7 % (36.0-66.0); PLATELET COUNT, AUTOMATED 112 10^3/uL (150-450); WHITE BLOOD COUNT 23.4 10^3/uL (4.0-10.0)
[2023-08-09 07:57] LABS: CALCIUM LEVEL 8.7 MG/DL (8.3-10.6); CREATININE FOR GFR 3.24 MG/DL (0.70-1.30); GLOMERULAR FILTRATION RATE 20.4 (>49); MAGNESIUM LEVEL 2.9 MG/DL (1.8-2.4); POTASSIUM SERUM 3.6 MMOL/L (3.5-5.1)
[2023-08-09] MEDS: KCL 20MEQ IN D5/0.45NS 1000ML 1,000 ML IV SCH (10:23)
[2023-08-10 04:00] VITALS: BP 164/80; TEMP 98.8; O2SAT 94
[2023-08-10 06:41] LABS: BASO % 0.2 % (0.0-1.0); EOS % 0.3 % (0.0-3.0); HEMATOCRIT 25.9 % (42.0-52.0); HEMOGLOBIN 8.3 g/dl (13.5-17.5); LYMPH # 1.3 10^3/uL (1.5-5.0); LYMPH % 8.3 % (24.0-44.0); MEAN CORPUSCULAR HEMOGLOBIN 31.7 pg (27.0-33.0); MEAN CORPUSCULAR VOLUME 98.9 fl (80.0-96.0); MONO # 1.2 10^3/uL (0.0-0.8); MONO % 7.7 % (2.0-8.0); NEUTROPHILS # 12.3 10^3/uL (1.5-8.5); NEUTROPHILS % 81.9 % (36.0-66.0); PLATELET COUNT, AUTOMATED 113 10^3/uL (150-450); RED BLOOD COUNT 2.62 10^6/uL (4.30-6.10)
[2023-08-10 07:07] LABS: CALCIUM LEVEL 8.4 MG/DL (8.3-10.6); CREATININE FOR GFR 3.21 MG/DL (0.70-1.30); GLOMERULAR FILTRATION RATE 20.7 (>49); POTASSIUM SERUM 3.4 MMOL/L (3.5-5.1)
[2023-08-10 08:09] VITALS: BP 160/80; TEMP 97.7; O2SAT 98
[2023-08-10] MEDS: KCL 10MEQ/100ML SWI (KRUN) 10 MEQ in IV 1 EA IV SCH (08:18)
[2023-08-10] MEDS: KCL 20MEQ IN D5W 1000ML 1,000 ML IV SCH (10:31)
[2023-08-10] MEDS ORDERED: GLUCAGON INJ 1MG VIAL SC PRN (11:40)
[2023-08-10] MEDS ORDERED: DEXTROSE 50% 50ML SYRINGE IV PRN (11:40)
[2023-08-10] MEDS ORDERED: GLUCOSE 4 GM CHEW PO PRN (11:40)
[2023-08-10 12:06] VITALS: BP 176/82; TEMP 97.8; O2SAT 92
[2023-08-10 14:00] VITALS: BP 158/76
[2023-08-10 15:25] VITALS: BP 158/88
[2023-08-10 19:00] VITALS: BP 158/72; TEMP 97; O2SAT 97
[2023-08-11] VITALS (7 sets, daily range): BP systolic 116–170; BP diastolic 63–94; TEMP 94.3–98.8; O2SAT 92–99
[2023-08-11 05:24] LABS: BASO % 0.1 % (0.0-1.0); EOS # 0.1 10^3/uL (0.0-0.5); EOS % 1.1 % (0.0-3.0); HEMOGLOBIN 7.2 g/dl (13.5-17.5); LYMPH # 1.3 10^3/uL (1.5-5.0); LYMPH % 18.1 % (24.0-44.0); MEAN CORPUSCULAR HEMOGLOBIN 31.9 pg (27.0-33.0); MEAN CORPUSCULAR HGB CONC 31.3 g/dl (32.0-36.5); MEAN CORPUSCULAR VOLUME 101.8 fl (80.0-96.0); MONO # 0.6 10^3/uL (0.0-0.8); MONO % 8.5 % (2.0-8.0); NEUTROPHILS # 5.2 10^3/uL (1.5-8.5); NEUTROPHILS % 71.2 % (36.0-66.0); PLATELET COUNT, AUTOMATED 119 10^3/uL (150-450); RED BLOOD COUNT 2.26 10^6/uL (4.30-6.10); WHITE BLOOD COUNT 7.3 10^3/uL (4.0-10.0)
[2023-08-11 05:45] LABS: CREATININE FOR GFR 3.13 MG/DL (0.70-1.30); GLOMERULAR FILTRATION RATE 21.3 (>49); POTASSIUM SERUM 3.7 MMOL/L (3.5-5.1)
[2023-08-12 03:58] VITALS: BP 170/84; TEMP 97.8; O2SAT 92
[2023-08-12 06:07] LABS: BASO % 0.3 % (0.0-1.0); EOS # 0.1 10^3/uL (0.0-0.5); EOS % 1.6 % (0.0-3.0); HEMATOCRIT 25.2 % (42.0-52.0); LYMPH # 1.2 10^3/uL (1.5-5.0); LYMPH % 20.1 % (24.0-44.0); MEAN CORPUSCULAR HEMOGLOBIN 31.9 pg (27.0-33.0); MEAN CORPUSCULAR HGB CONC 31.7 g/dl (32.0-36.5); MEAN CORPUSCULAR VOLUME 100.4 fl (80.0-96.0); MONO # 0.6 10^3/uL (0.0-0.8); MONO % 10.5 % (2.0-8.0); NEUTROPHILS % 66.3 % (36.0-66.0); PLATELET COUNT, AUTOMATED 163 10^3/uL (150-450); RED BLOOD COUNT 2.51 10^6/uL (4.30-6.10); WHITE BLOOD COUNT 6.1 10^3/uL (4.0-10.0)
[2023-08-12 06:37] LABS: CALCIUM LEVEL 8.3 MG/DL (8.3-10.6); CREATININE FOR GFR 3.05 MG/DL (0.70-1.30); GLOMERULAR FILTRATION RATE 21.9 (>49); POTASSIUM SERUM 3.9 MMOL/L (3.5-5.1)
[2023-08-12 07:34] VITALS: BP 182/108; TEMP 97.5; O2SAT 98
[2023-08-12 08:19] VITALS: BP 182/102
[2023-08-12 08:37] VITALS: O2SAT 97
[2023-08-12 11:46] VITALS: BP 155/72; TEMP 97.2; O2SAT 94
[2023-08-12] MEDS ORDERED: HYOSCYAMINE SULFATE 0.125 MG SUBL TABLET PO PRN (13:35)
[2023-08-12] MEDS ORDERED: LORazepam 1 MG TAB PO PRN (13:35)
[2023-08-12] MEDS ORDERED: MORPHINE 10MG/0.5ML ORAL CONCENTRATE SOLUTION U/D SL PRN (13:35)
[2023-08-14] MEDS ORDERED: HYOS125TA PO (09:13)
[2023-08-14] MEDS ORDERED: ATIV1TAB10 PO (09:13)
[2023-08-14] MEDS ORDERED: MORP1SOL5 PO (09:13)
== END 2023-08-14 11:15 | disposition home or self-care (01) | DRG 871 ==
LOC: M ED 11:28 → EDBD 11:28 → M ED INP 15:45 → M PCU 23:20 → M MS5PR 08-13 15:33
PROVIDERS: ADMIT General Practice; ATTEND Internal Medicine
PROC: 0D20XUZ Change Feeding Device in Upper Intestinal Tract, External Approach (ICD-10-PCS; principal; 2023-08-06)
DX: A41.9 Sepsis, unspecified organism (principal); G93.41 Metabolic encephalopathy; J69.0 Pneumonitis due to inhalation of food and vomit; G80.1 Spastic diplegic cerebral palsy; I50.32 Chronic diastolic (congestive) heart failure; N18.4 Chronic kidney disease, stage 4 (severe); I13.0 Hypertensive heart and chronic kidney disease with heart failure and stage 1 through stage 4 chronic kidney disease, or unspecified chronic kidney disease; N17.9 Acute kidney failure, unspecified; F72 Severe intellectual disabilities; G91.2 (Idiopathic) normal pressure hydrocephalus; E87.1 Hypo-osmolality and hyponatremia; R13.12 Dysphagia, oropharyngeal phase; I44.1 Atrioventricular block, second degree; F32.A Depression, unspecified; F63.81 Intermittent explosive disorder; H91.93 Unspecified hearing loss, bilateral; Z51.5 Encounter for palliative care; Z66 Do not resuscitate; K21.9 Gastro-esophageal reflux disease without esophagitis; L21.9 Seborrheic dermatitis, unspecified; N40.0 Benign prostatic hyperplasia without lower urinary tract symptoms; D63.0 Anemia in neoplastic disease; E16.2 Hypoglycemia, unspecified; D46.9 Myelodysplastic syndrome, unspecified; K59.00 Constipation, unspecified; D63.1 Anemia in chronic kidney disease; E87.5 Hyperkalemia; R68.0 Hypothermia, not associated with low environmental temperature; D69.6 Thrombocytopenia, unspecified; E02 Subclinical iodine-deficiency hypothyroidism; E83.41 Hypermagnesemia; Z93.1 Gastrostomy status; Z79.899 Other long term (current) drug therapy; Z88.6 Allergy status to analgesic agent